=== PATIENT | male | born 1940 | race Caucasian/White ===

== ENCOUNTER 2019-12-30 14:01 | Outpatient (CLI) | payer MEDICARE, MEDICAID, SELFPAY ==
--- NOTE | ~2019-12-30 | XR_ITS ---
EXAMINATION: XR lumbar spine 2-3V DATE: 12/30/2019 14:45 INDICATION: Low back pain. TECHNIQUE: 3 views of lumbar spine were obtained. COMPARISON: Lumbar spine radiographs 06/29/2011 FINDINGS: There is 7 degrees levocurvature of lumbar spine. There is 5 mm retrolisthesis of L1 on L2 and 3 mm retrolisthesis of L2 on L3. Vertebral body heights are normal. There is severely decreased d isc height at L1-L2, L2-L3, and L4-L5 and moderately decreased disc height at L3-L4 and L5-S1. There is multilevel facet joint osteoarthritis, severe in the lower lumbar spine. Surgical clips in the rig ht upper quadrant are likely from cholecystectomy. IMPRESSION: 1. Severe lumbar spondylosis. Reviewed, dictated and finalized at location A.
--- NOTE | ~2019-12-30 | XR_ITS ---
XR hip BI wo pelvis 12/30/2019 14:45 Indication: Bilateral hip pain Procedure: 2 views of each hip Comparison: No prior studies for comparison. Findings: No acute fracture or traumatic malalignment. No significant joint space narrowing. Normal m ineralization. No erosive changes. Sacral foramen are symmetric. There are vascular calcifications. Impression: 1: No significant bone or joint abnormality. Reviewed, dictated and finalized at location A. Impression: 1: No significant bone or joint abnormality.
[2019-12-30 14:19] LABS: Basophils Absolute Auto 0.06 K/mm3 (0.00-0.10); Basophils Percent Auto 0.9 % (0.0-1.0); Eosinophils Absolute Auto 0.36 K/mm3 (0.02-0.50); Eosinophils Percent Auto 5.3 % (1.0-6.0); Hematocrit 45.4 % (37.0-46.0); Hemoglobin 15.6 g/dL (12.4-15.3); Immature Granulocyte Absolute 0.02 K/mm3 (0.00-0.00); Immature Granulocyte Percent A 0.3 % (0.0-0.0); Lymphocytes Absolute Auto 1.76 K/mm3 (1.10-4.50); Lymphocytes Percent Auto 25.7 % (18.0-42.0); Mean Corpuscular HGB Conc 34.4 g/dL (32.0-36.0); Mean Corpuscular Hemoglobin 31.5 pg (27.0-31.0); Mean Corpuscular Volume 91.7 fL (78.0-102.0); Mean Platelet Volume 11.1 fl (8.7-11.0); Monocytes Absolute Auto 0.76 K/mm3 (0.10-0.90); Monocytes Percent Auto 11.1 % (2.0-11.0); Neutrophils Absolute Auto 3.9 K/mm3 (1.7-7.2); Neutrophils Percent Auto 56.7 % (50.0-70.0); Platelet Count Result 260 K/mm3 (150-420); Red Blood Count 4.95 M/mm3 (4.70-6.10); Red Cell Distribution Width 13.9 % (11.6-14.4); White Blood Count 6.9 K/mm3 (4.8-10.8)
--- NOTE | 2019-12-30 15:00 | ECG_ITS ---
Measurements Intervals [place] Rate: 47 P: 75 ID: [id number] QRS: 94 QRSD: 85 T: 69 QT: 424 QTc: 378 Interpretive Statements SINUS BRADYCARDIA RIGHT AXIS DEVIATION LOW QRS VOLTAGE IN LIMB LEADS BASELINE WANDER- V4-V6 ABNORMAL ECG Electronically Signed On 12-30-2019 15:07:59 CDT by Bradley Waters D.O.
[2019-12-30 15:13] LABS: Alanine Aminotransferase 39 U/L (16-63); Albumin Level 3.9 g/dL (3.4-5.0); Alkaline Phosphatase 80 U/L (46-116); Anion Gap 12.5 mmol/L (7-16); Aspartate Amino Transferase 22 U/L (15-37); Bilirubin,Total 0.4 mg/dL (0.00-1.00); Blood Urea Nitrogen 17 mg/dL (7-18); Calcium 9.1 mg/dL (8.5-10.1); Carbon Dioxide 26 mmol/L (21-32); Chloride 105 mmol/L (98-108); Estimated Glomerular Filt Rate > 60; Glucose 106 mg/dL (70-99); Osmolality Calculated 289 mOsm/kg (285-295); Potassium 4.5 mmol/L (3.5-5.1); Sodium 139 mmol/L (136-145); Total Protein 6.9 g/dL (6.4-8.2)
[2019-12-30 15:14] LABS: CRP < 0.2 mg/dL (0.0-0.9)
[2020-01-02 09:09] LABS: Theophylline 4.6 mg/L (10.0-20.0)
== END 2019-12-30 14:02 | disposition home or self-care (01) ==
LOC: CHSLAB 14:08
PROVIDERS: PCP Internal Medicine; Visit Provider Internal Medicine
DX: M25.552 Pain in left hip (principal); M25.551 Pain in right hip; I73.9 Peripheral vascular disease, unspecified
CPT/HCPCS: 36415; 72100; 73521; 80053; 80198; 85025; 86140; 93005

== ENCOUNTER 2020-01-02 12:20 | Outpatient (CLI) | payer MEDICARE, MEDICAID, SELFPAY ==
--- NOTE | ~2020-01-02 | US_ITS ---
US art doppler w press LE BI INDICATION: Claudication. Bilateral hip pain. TECHNIQUE: Segmental pressures and plethysmographic and Doppler waveforms of the brachial and lower e xtremity arteries were obtained. COMPARISON: None. FINDINGS: Right and left brachial artery pressures of 125 mm Hg and 126 mm Hg, respectively, are concordant (no rmal difference <= 30 mmHg). The right ankle-brachial index (CURLY) is 0.88 (normal >= 0.9-1.0). The right great toe-brachial index (TBI) is 0.56 (normal >= 0.60). The left CURLY is 0.95. The left TBI is 0.5. IMPRESSION: 1. Diminished right ankle-brachial index and bilateral toe brachial indices consistent with mild loco pheral arterial disease. Reviewed, dictated and finalized at location A. IMPRESSION: 1. Diminished right ankle-brachial index and bilateral toe brachial indices con sistent with mild peripheral arterial disease.
== END 2020-01-02 12:21 | disposition home or self-care (01) ==
LOC: CHSIMG 12:21
PROVIDERS: PCP Internal Medicine; Visit Provider Internal Medicine
DX: I73.9 Peripheral vascular disease, unspecified (principal); M25.552 Pain in left hip; M25.551 Pain in right hip
CPT/HCPCS: 93923

== ENCOUNTER 2020-04-07 09:40 | Outpatient (CLI) | payer MEDICARE, MEDICAID, SELFPAY ==
--- NOTE | ~2020-04-07 | MR_ITS ---
. EXAMINATION: MR lumbar spine wo con DATE: 04/07/2020 10:32 INDICATION: Lumbar spinal stenosis. Low back pain. TECHNIQUE: Magnetic resonance imaging (MRI) of the lumbar spine was performed without intravenous con trast. Sequences included sagittal T2-weighted FSE, sagittal T2-weighted FS FSE, sagittal T1-weighted FSE, and axial T2-weighted FSE. COMPARISON: Lumbar spine radiographs 12/30/2019 FINDINGS: There is 11 degrees levoscoliosis of lumbar spine. There is 3 mm retrolisthesis of L1 on L2 and L2 on L3. There are Schmorl's nodes at most levels. There is severely decreased disc height at L 1-L2 and L2-L3, moderately decreased disc height at L3-L4, severely decreased disc height at L4-L5, a nd moderately decreased disc height at L5-S1. The distal spinal cord signal intensity is normal. The conus medullaris is at T12-L1. There are cysts in the kidneys measuring up to 1.6 cm on the left. The following disc levels are specifically discussed: L1-L2: The disc is bulging and has an annular fissure. There is moderate right and mild left facet mervin int osteoarthritis. There is moderate bilateral neural foraminal stenosis. There is mild central patrick l stenosis. L2-L3: The disc is bulging and has an annular fissure. There is moderate bilateral facet joint osteoa rthritis. There is moderate bilateral neural foraminal stenosis. There is mild central canal stenosis . L3-L4: The disc is bulging and has an annular fissure. There is mild bilateral facet joint osteoarthr itis. There is moderate right and mild left neural foraminal stenosis. There is mild central canal st enosis. L4-L5: The disc is bulging and has an annular fissure. There is severe bilateral facet joint osteoart hritis. There is moderate bilateral neural foraminal stenosis. There is mild central canal stenosis. L5-S1: The disc is bulging and has an annular fissure. There is moderate right and severe left facet joint osteoarthritis. There is mild bilateral neural foraminal stenosis. There is mild central canal stenosis. IMPRESSION: 1. Severe lumbar spondylosis. Reviewed, dictated and finalized at location A.
== END 2020-04-07 09:41 | disposition home or self-care (01) ==
PROVIDERS: PCP Internal Medicine; Visit Provider Internal Medicine
DX: M48.061 Spinal stenosis, lumbar region without neurogenic claudication (principal)
CPT/HCPCS: 72148

== ENCOUNTER 2021-01-03 14:26 | Outpatient (CLI) | payer MEDICARE, MEDICAID, SELFPAY ==
--- NOTE | ~2021-01-03 | XR_ITS ---
XR chest 2V DATE: 01/03/2021 14:59 INDICATION: COPD. Fatigue for one week. TECHNIQUE: PA and lateral views Heart size is normal. Is aortic arch calcification, mild aortic unfolding. No hilar or mediastinal en largement. COMPARISON: 12/17/2017 chest FINDINGS: There is bilateral hyperinflation. No pulmonary infiltrate or consolidation, pulmonary vas cular congestion or pleural effusion or pneumothorax. Surgical clips, upper abdomen, seen only on the lateral view, likely due to cholecystectomy Diffuse osteopenia. Bilateral rotator cuff atrophy. Osteoarthritic changes at the left glenohumeral joint in particular. Degenerative change of the acromioclavicular joints. IMPRESSION: Bilateral hyperinflation; no active cardiac pulmonary disease Aortic atherosclerosis Reviewed, dictated and finalized at location B.
== END 2021-01-03 14:27 | disposition home or self-care (01) ==
PROVIDERS: PCP Internal Medicine; Visit Provider Internal Medicine
DX: R53.83 Other fatigue (principal); J44.9 Chronic obstructive pulmonary disease, unspecified
CPT/HCPCS: 71046

== ENCOUNTER 2021-03-09 15:56 | Outpatient (CLI) | payer MEDICARE, MEDICAID, SELFPAY ==
--- NOTE | ~2021-03-09 | XR_ITS ---
XR knee LT min 4V DATE: 03/09/2021 16:28 INDICATION: Generalized left knee pain. No injury. TECHNIQUE: AP, PA, lateral and sunrise views COMPARISON: None FINDINGS: There is mild periarticular spurring at the patellofemoral compartment consistent with oste oarthritis. No fracture or dislocation or joint effusion. No periosteal reaction or bone destruction. No radiopaq ue intra-articular loose body or chondrocalcinosis. Joint spaces appear preserved. IMPRESSION: Mild patellofemoral osteoarthritis Reviewed, dictated and finalized at location A.
== END 2021-03-09 15:57 | disposition home or self-care (01) ==
LOC: CHSIMG 15:59
PROVIDERS: PCP Internal Medicine; Visit Provider Internal Medicine
DX: I73.9 Peripheral vascular disease, unspecified (principal); M25.562 Pain in left knee
CPT/HCPCS: 73564

== ENCOUNTER 2021-03-15 10:51 | Outpatient (RCR) | payer MEDICARE, MEDICAID, SELFPAY | END 2021-06-13 23:59 | disposition home or self-care (01) | LOC: CHSPT 10:51 | PROVIDERS: PCP Internal Medicine; Visit Provider Internal Medicine | DX: M79.605 Pain in left leg (principal); M79.604 Pain in right leg; R26.9 Unspecified abnormalities of gait and mobility | CPT/HCPCS: 99199 ==

== ENCOUNTER 2021-04-15 07:54 | Outpatient (CLI) | payer MEDICARE, MEDICAID, SELFPAY ==
--- NOTE | ~2021-04-15 | US_ITS ---
EXAMINATION: US aorta DATE: 04/15/2021 08:40 INDICATION: Aortic aneurysm. TECHNIQUE: Grayscale, color Doppler, and pulsed Doppler images of the aorta and common iliac arteries were obtained. COMPARISON: None. FINDINGS: The aorta is normal in caliber.. The right common iliac artery is obscured by bowel gas. The left com mon iliac artery is obscured by bowel gas. IMPRESSION: 1. No abdominal aortic aneurysm. Reviewed, dictated and finalized at location A.
--- NOTE | ~2021-04-15 | US_ITS ---
EXAMINATION: US arterial ankle brachial ind DATE: 04/15/2021 08:40 INDICATION: Peripheral arterial disease. TECHNIQUE: Segmental pressures and plethysmographic and Doppler waveforms of the brachial and lower e xtremity arteries were obtained. COMPARISON: Ultrasound 01/02/2020 FINDINGS: Right and left brachial artery pressures of 134 mm Hg and 146 mm Hg, respectively, are concordant (no rmal difference <= 30 mmHg). The right ankle-brachial index (CURLY) is 1.03 (normal >= 0.9-1.0). The right great toe-brachial index (TBI) is 0.77 (normal >= 0.65). Arterial Doppler waveforms are monophasic at the ankle. The left CURLY is 0.97. The left TBI is 0.55. Arterial Doppler waveforms are monophasic at the ankle. IMPRESSION: 1. Mildly decreased left CURLY and TBI, consistent with left-sided arterial occlusive disease, stable f rom 01/02/2020. 2. No significant right-sided arterial occlusive disease, improved from 01/02/2020. Reviewed, dictated and finalized at location A. IMPRESSION: 1. Mildly decreased left CURLY and TBI, consistent with left-sided arterial occlu sive disease, stable from 01/02/2020. 2. No significant right-sided arterial occlusive disease, improved from 01/02/20 20.
== END 2021-04-15 07:55 | disposition home or self-care (01) ==
LOC: CHSIMG 07:56
PROVIDERS: PCP Internal Medicine; Visit Provider Internal Medicine
DX: I73.9 Peripheral vascular disease, unspecified (principal); I71.9 Aortic aneurysm of unspecified site, without rupture
CPT/HCPCS: 76775; 93922

== ENCOUNTER 2022-02-19 14:55 | Emergency (ER) | payer BC, SELFPAY ==
--- NOTE | ~2022-02-19 | XR_ITS ---
EXAMINATION: XR chest 1V portable Exam Date/Time: 02/19/2022 15:08 CDT HISTORY: SHORTNESS OF BREATH, COUGH. Comparison: 01/03/2021. RESULT: Lines, tubes, and devices: None. Lungs and pleura: Senescent change, otherwise clear. Cardiomediastinal silhouette: Stable. Other: No acute osseous or upper abdominal finding. IMPRESSION: No acute cardiopulmonary process. Reviewed, dictated and finalized at location K.
[2022-02-19 14:55] VITALS: BP 157/91; PULSE 59; RESP 20; TEMP 36.8; O2SAT 96
--- NOTE | 2022-02-19 15:05 | ECG_ITS ---
Measurements Intervals [place] Rate: 53 P: 92 NV: 160 QRS: 92 QRSD: 82 T: 79 QT: 418 QTc: 393 Interpretive Statements SINUS BRADYCARDIA BORDERLINE RIGHT AXIS DEVIATION [QRS AXIS > 90] COMPARED TO ECG 12/30/2019 14:59:00 NO SIGNIFICANT CHANGES Electronically Signed On 02-20-2022 17:15:07 CDT by Gómez Emanuel M.D.
--- NOTE | 2022-02-19 15:09 | ED.GENADULT ---
HPI - General Adult General Chief complaint: Shortness of Breath/Dyspnea Stated complaint: weakness,depression Time Seen by Provider: 02/19/22 15:04 History of Present Illness HPI narrative: Fernie is a 82M with a PMH of tobacco abuse, COPD, HTN and recently diagnosed prostate cancer that presented to ED via ambulance that was called by his granddaughter. She was concerned about his breathing. For the last day he has had increased SOB, cough and sputum production. Last night he reportedly had a fever and a few episodes of non-bloody vomiting. He denies chest pain, and his lightheadedness and fatigue are no different than normal. He denies any abdominal pain as well as diarrhea. No dysuria/hematuria reported. Related Data Home Medications Medication Instructions Recorded Confirmed atorvastatin 20 mg tablet 20 mg PO DAILY 02/19/22 02/19/22 diclofenac sodium 75 mg 75 mg PO BID 02/19/22 02/19/22 tablet,delayed release famotidine 20 mg tablet 20 mg PO BID 02/19/22 02/19/22 lisinopril 20 mg tablet 20 mg PO DAILY 02/19/22 02/19/22 montelukast 10 mg tablet 10 mg PO DAILY 02/19/22 02/19/22 theophylline 400 mg 400 mg PO BID 02/19/22 02/19/22 tablet,extended release 24 hr verapamil 120 mg tablet,extended 120 mg PO HS 02/19/22 02/19/22 release Allergies Allergy/AdvReac Type Severity Reaction Status Date / Time aspirin Allergy Mild Rash Unverified 10/07/08 13:16 Contrast Media Allergy Mild Confusion Uncoded 05/20/03 12:57 Review of Systems Review of Systems: All systems reviewed & are unremarkable except as noted in HPI and below Exam Const: General: healthy appearing, no acute distress and alert Nutritional Appearance: well nourished Orientation/consciousness: patient oriented x3 Limitations: no limitations HENMT: Head: normal to inspection Ears: external ears normal General nose exam: Normal external nose present Eyes: Conjunctivae: conjunctivae normal Pupils: Equal, round and reactive pupils present Neck: Neck: normal visual inspection Chest: Chest palpation & inspection: normal inspection of the chest Resp: Other: Prolonged expiratory phase, diffuse wheezing, and cough present on exam. Good air movement and was able to speak in complete sentences Cardio: Rate: regular rate Rhythm: regular rhythm GI: Other: normal to inspection Skin: General skin exam: normal color Neuro: General: patient oriented x3 and moves all extremities Cranial nerves: Yes Nystagmus not present Extrem: Other: No deformity Psych: Mental Status: mental status grossly normal Course Course Emergency Course: Ordered CXR, EKG, labs, steroids, azithromycin and albuterol HFA as covid test is pending. EKG showed sinus bradycardia with possible RAD but no ST elevation or depression EXAMINATION:? XR chest 1V portable Exam Date/Time:? 02/19/2022 15:08 CDT HISTORY: SHORTNESS OF BREATH, COUGH. ? Comparison:? 01/03/2021. RESULT: Lines, tubes, and devices:? None. Lungs and pleura:? Senescent change, otherwise clear. Cardiomediastinal silhouette:? Stable. Other:? No acute osseous or upper abdominal finding. IMPRESSION: No acute cardiopulmonary process. UA showed nitrites Vital Signs Vital signs: Vital Signs Temperature 98.2 F 02/19/22 14:55 Pulse Rate 59 L 02/19/22 14:55 Respiratory Rate 20 02/19/22 14:55 Blood Pressure 157/91 H 02/19/22 14:55 Pulse Oximetry 96 02/19/22 14:55 Oxygen Delivery Room Air 02/19/22 14:55 Temperature 98.2 F 02/19/22 14:55 Pulse Rate 58 L 02/19/22 15:50 Respiratory Rate 24 H 02/19/22 15:50 Blood Pressure 130/55 L 02/19/22 15:50 Pulse Oximetry 98 02/19/22 15:50 Oxygen Delivery Room Air 02/19/22 15:50 Medical Decision Making Vital Signs Vital Signs: Vital Signs Temperature 98.2 F 02/19/22 14:55 Pulse Rate 59 L 02/19/22 14:55 Respiratory Rate 02/19/22 14:55 Blood Pressure 157/91 H 02/19/22 14:55 Pulse Oximetry 96 02/19/22 14:5
[2022-02-19] MEDS: predniSONE 20 MG TABLET 40 MG PO (15:29)
[2022-02-19] MEDS: ONDANSETRON HCL ODT 4 MG TABLET PO (15:30)
[2022-02-19] MEDS: AZITHROMYCIN 250 MG TABLET 500 MG PO (15:30)
[2022-02-19] MEDS: ALBUTEROL SULFATE (*SP) INHALER 2 PUFF INHALATION (15:31)
[2022-02-19 15:49] LABS: Basophils Absolute Auto 0.05 K/mm3 (0.00-0.10); Basophils Percent Auto 0.6 % (0.0-1.0); Eosinophils Absolute Auto 0.37 K/mm3 (0.02-0.50); Eosinophils Percent Auto 4.3 % (1.0-6.0); Hematocrit 46.3 % (37.0-46.0); Hemoglobin 15.4 g/dL (12.4-15.3); Immature Granulocyte Absolute 0.02 K/mm3 (0.00-0.00); Immature Granulocyte Percent A 0.2 % (0.0-0.0); Lymphocytes Percent Auto 22.3 % (18.0-42.0); Mean Corpuscular HGB Conc 33.3 g/dL (32.0-36.0); Mean Corpuscular Hemoglobin 30.6 pg (27.0-31.0); Mean Corpuscular Volume 91.9 fL (78.0-102.0); Mean Platelet Volume 10.8 fl (8.7-11.0); Monocytes Percent Auto 9.4 % (2.0-11.0); Neutrophils Absolute Auto 5.4 K/mm3 (1.7-7.2); Neutrophils Percent Auto 63.2 % (50.0-70.0); Platelet Count Result 291 K/mm3 (150-420); Red Blood Count 5.04 M/mm3 (4.70-6.10); Red Cell Distribution Width 14.1 % (11.6-14.4); White Blood Count 8.5 K/mm3 (4.8-10.8)
[2022-02-19 15:50] VITALS: BP 130/55; PULSE 58; RESP 24; O2SAT 98
[2022-02-19 16:09] LABS: SARS-CoV-2 Ag Negative (Negative)
[2022-02-19 16:11] LABS: Alanine Aminotransferase 30 U/L (16-63); Albumin Level 3.6 g/dL (3.4-5.0); Alkaline Phosphatase 91 U/L (46-116); Anion Gap 7 mmol/L (8-16); Aspartate Amino Transferase 17 U/L (15-37); Bilirubin,Total 0.4 mg/dL (0.00-1.00); Blood Urea Nitrogen 17 mg/dL (7-18); Calcium 8.7 mg/dL (8.5-10.1); Carbon Dioxide 26 mmol/L (21-32); Chloride 104 mmol/L (98-108); Estimated CRCL calculation 48 ml/min; Estimated Glomerular Filt Rate > 60; Glucose 91 mg/dL (70-99); NT Pro B Type Natriuretic Pept 154 pg/mL (0-450); Osmolality Calculated 285 mOsm/kg (285-295); Potassium 4.1 mmol/L (3.5-5.1); Sodium 137 mmol/L (136-145); Total Protein 7.4 g/dL (6.4-8.2); Troponin I 4.6 ng/L (0.00-60.4)
[2022-02-19 16:33] LABS: Add Urine Microscopic? YES; Appearance Urine Clear (Clear); Bilirubin Urine Negative (Negative); Blood Urine Negative (Negative); Color Urine Light Yellow (Yellow); Glucose Urine UA Negative (Negative); Ketones Urine Negative (Negative); Leukocyte Esterase Ur 1+ (Negative); Nitrate Urine Positive (Negative); Protein Urine Negative (Negative); Urobilinogen Urine 0.2 mg/dL (0.2-1.0); pH Urine 7.5 (5.0-8.0)
[2022-02-19 16:41] LABS: Bacteria Urine 4+ /hpf; RBC Urine 0-2 /hpf (0-2); Squamous Epithelial Cell Urine None seen /hpf (Few); WBC Clumps Urine Present /hpf; WBC Urine 31-50 /hpf (0-3)
[2022-02-19] MEDS: levoFLOXacin 500 MG TABLET (16:55)
[2022-02-19] MEDS: levoFLOXacin 250 MG TABLET (16:55)
[2022-02-19 16:57] VITALS: BP 134/54; PULSE 64; RESP 20; TEMP 36.9; O2SAT 98
--- NOTE | 2022-02-19 16:59 | PC.NURSE ---
discharge instructions given to pt and family per dr toribio. voiced understanding
== END 2022-02-19 17:05 | disposition home or self-care (01) ==
PROVIDERS: Emergency Provider Family Medicine; PCP Internal Medicine
DX: J44.1 Chronic obstructive pulmonary disease with (acute) exacerbation (principal); N39.0 Urinary tract infection, site not specified; Z20.822 Contact with and (suspected) exposure to COVID-19; I10 Essential (primary) hypertension; C61 Malignant neoplasm of prostate; Z87.891 Personal history of nicotine dependence
CPT/HCPCS: 36415; 71045; 80053; 81001; 83880; 84484; 85025; 87426; 93005; 99284; A9270; C9803; J7512

== ENCOUNTER 2022-02-28 01:29 | Emergency (ER) | payer BC, SELFPAY ==
--- NOTE | ~2022-02-28 | CT_ITS ---
EXAMINATION: CT chest abdomen pelvis wo con DATE: 02/28/2022 02:08 INDICATION: Cough. Right lower quadrant abdominal pain. TECHNIQUE: Computed tomography (CT) of the chest, abdomen, and pelvis was performed without intraveno us contrast. Automated exposure control and iterative reconstruction technique were employed. The dos e-length product was 984.36 mGy-cm. COMPARISON: CT pelvis 08/20/2017, CT abdomen and pelvis 05/02/2010 FINDINGS: CHEST CT: There is moderate emphysema. There is mild atelectasis bilaterally. Calcified right lung nodules and calcified right hilar and mediastinal lymph nodes are consistent with old granulomatous disease. Ther e is mild scarring at the lung apices. There is a 5 mm nodule in left lower lobe, likely benign. Ther e are chronic 5 mm nodules in the lower lobes, likely benign. No pleural effusion. There are nodules in the thyroid measuring up to 14 mm, likely not clinically significant. The heart size is normal. Th ere are coronary artery calcifications. There are calcifications of the aortic valve. No pericardial effusion. There is a small sliding hiatal hernia. There is bilateral gynecomastia. There is severe th oracic spondylosis. ABDOMEN/PELVIS CT: Calcifications in the liver and spleen are consistent with old granulomatous disease. There are good es of cholecystectomy. The pancreas and adrenal glands are normal. There is a parenchymal calcificati on in right kidney. There is mild right hydronephrosis. There is a 6 mm stone in proximal right urete r. There is a 1.9 cm cyst in left kidney. There are 1 mm and 3 mm stones in left kidney. The prostate is moderately enlarged. There is diverticulosis of the colon without evidence of diverticulitis. The appendix is normal. There is calcified atherosclerosis of the aorta and many of the other arteries. There are no pathologically enlarged lymph nodes. There is prominent fat in the inguinal canals that may be hernias. There is no free intraperitoneal fluid. There is severe lumbar spondylosis. IMPRESSION: 1. 6 mm stone in proximal right ureter with mild right hydronephrosis. 2. Moderate emphysema. 3. Small sliding hiatal hernia. Reviewed, dictated and finalized at location A.
[2022-02-28 01:32] VITALS: BP 148/60; PULSE 98; RESP 20; TEMP 37; O2SAT 95
--- NOTE | 2022-02-28 01:39 | ED.GENADULT ---
HPI - General Adult General Chief complaint: Abdominal Pain Stated complaint: Adominal pain History of Present Illness HPI narrative: Fernie is a 82M with a PMH of tobacco abuse, COPD, HTN and recently diagnosed prostate cancer that presented to ED with abdominal pain. He started having worsening sharp right sided abdominal pain and distension. It was accompanied by 4 episodes of non-bloody vomiting. Had a small BM yesterday morning. No CP or lightheadedness. No diarrhea. Related Data Home Medications Medication Instructions Recorded Confirmed atorvastatin 20 mg tablet 20 mg PO DAILY 02/19/22 03/03/22 diclofenac sodium 75 mg 75 mg PO BID 02/19/22 03/03/22 tablet,delayed release famotidine 20 mg tablet 20 mg PO BID 02/19/22 03/03/22 lisinopril 20 mg tablet 20 mg PO DAILY 02/19/22 03/03/22 montelukast 10 mg tablet 10 mg PO DAILY 02/19/22 03/03/22 theophylline 400 mg 400 mg PO BID 02/19/22 03/03/22 tablet,extended release 24 hr verapamil 120 mg tablet,extended 120 mg PO HS 02/19/22 03/03/22 release Allergies Allergy/AdvReac Type Severity Reaction Status Date / Time aspirin Allergy Mild Rash Verified 03/03/22 19:24 Contrast Media Allergy Mild Confusion Uncoded 03/03/22 19:24 Review of Systems Review of Systems: All systems reviewed & are unremarkable except as noted in HPI and below PMFSH Past Medical History Medical History Gastroenteritis Renal calculus Exam Const: General: healthy appearing, no acute distress and alert Nutritional Appearance: well nourished Orientation/consciousness: patient oriented x3 Limitations: no limitations HENMT: Head: normal to inspection Ears: external ears normal General nose exam: Normal external nose present Eyes: Conjunctivae: conjunctivae normal Pupils: Equal, round and reactive pupils present EOM: EOMs intact bilaterally Neck: Neck: normal visual inspection Chest: Chest palpation & inspection: normal inspection of the chest Resp: Effort & Inspection: normal respiratory effort Auscultation: clear to auscultation bilaterally Cardio: Rate: regular rate Rhythm: regular rhythm GI: Other: Very distended abdomen, faint high pitched bowel sounds, TTP on the right side of the abdomen, no guarding or rebound tenderness Skin: General skin exam: normal color Neuro: General: patient oriented x3, moves all extremities and CN's II-XI intact bilaterally Extrem: General: normal to inspection Psych: Mental Status: mental status grossly normal Course Course Emergency Course: Orderd morphine, zofran, labs and CT. Labs showed no leukocytosis, normal INR, slight RYLAND and his urine showed 3+ blood but no nitrites (was positive a week ago) CT showed emphysema and atelectasis. CT abd/pelvis showed right sided hydronephrosis with an obstructing stone 5x5mm as well as a 3mm stone in the bladder. There was diverticulosis without inflammation. He was given fluids and flomax. His pain was relieved with the morphine Vital Signs Vital signs: Vital Signs Temperature 98.6 F 02/28/22 01:32 Pulse Rate 98 02/28/22 01:32 Respiratory Rate 20 02/28/22 01:32 Blood Pressure 148/60 H 02/28/22 01:32 Pulse Oximetry 95 02/28/22 01:32 Oxygen Delivery Room Air 02/28/22 01:32 Temperature 97.9 F 02/28/22 04:55 Pulse Rate 89 02/28/22 04:55 Respiratory Rate 02/28/22 04:55 Blood Pressure 139/89 02/28/22 04:55 Pulse Oximetry 96 02/28/22 04:55 Oxygen Delivery Room Air 02/28/22 04:55 Medical Decision Making Vital Signs Vital Signs: Vital Signs Temperature 98.6 F 02/28/22 01:32 Pulse Rate 98 02/28/22 01:32 Respiratory Rate 20 02/28/22 01:32 Blood Pressure 148/60 H 02/28/22 01:32 Pulse Oximetry 95 02/28/22 01:32 Oxygen Delivery Room Air 02/28/22 01:32 Temperature 97.9 F 02/28/22 04:55 Pulse Rate 89 02/28/22 04:55 Respiratory Rate 19 02/28/22 04:55
[2022-02-28] MEDS: MORPHINE SULFATE (*CRX) 4 MG/ML INJ IV PUSH (01:45)
[2022-02-28] MEDS: ONDANSETRON INJ 4 MG/2 ML VIAL IV PUSH (01:52)
[2022-02-28 01:58] LABS: Basophils Absolute Auto 0.06 K/mm3 (0.00-0.10); Basophils Percent Auto 0.6 % (0.0-1.0); Eosinophils Absolute Auto 0.52 K/mm3 (0.02-0.50); Hematocrit 45.7 % (37.0-46.0); Hemoglobin 15.3 g/dL (12.4-15.3); Immature Granulocyte Absolute 0.07 K/mm3 (0.00-0.00); Immature Granulocyte Percent A 0.7 % (0.0-0.0); Lymphocytes Absolute Auto 1.61 K/mm3 (1.10-4.50); Lymphocytes Percent Auto 15.6 % (18.0-42.0); Mean Corpuscular HGB Conc 33.5 g/dL (32.0-36.0); Mean Corpuscular Volume 92.5 fL (78.0-102.0); Mean Platelet Volume 10.4 fl (8.7-11.0); Monocytes Absolute Auto 0.77 K/mm3 (0.10-0.90); Monocytes Percent Auto 7.4 % (2.0-11.0); Neutrophils Absolute Auto 7.3 K/mm3 (1.7-7.2); Neutrophils Percent Auto 70.7 % (50.0-70.0); Platelet Count Result 281 K/mm3 (150-420); Red Blood Count 4.94 M/mm3 (4.70-6.10); Red Cell Distribution Width 14.5 % (11.6-14.4); White Blood Count 10.4 K/mm3 (4.8-10.8)
[2022-02-28 02:12] LABS: Alanine Aminotransferase 27 U/L (16-63); Albumin Level 3.4 g/dL (3.4-5.0); Alkaline Phosphatase 85 U/L (46-116); Anion Gap 9 mmol/L (8-16); Aspartate Amino Transferase 14 U/L (15-37); Bilirubin,Total 0.3 mg/dL (0.00-1.00); Blood Urea Nitrogen 25 mg/dL (7-18); Calcium 8.7 mg/dL (8.5-10.1); Carbon Dioxide 24 mmol/L (21-32); Chloride 105 mmol/L (98-108); Estimated CRCL calculation 35 ml/min; Estimated Glomerular Filt Rate 47; Glucose 113 mg/dL (70-99); Lipase 159 U/L (73-393); Osmolality Calculated 291 mOsm/kg (285-295); Potassium 4.4 mmol/L (3.5-5.1); Sodium 138 mmol/L (136-145); Total Protein 6.8 g/dL (6.4-8.2)
[2022-02-28 02:17] LABS: CRP < 0.2 mg/dL (0.0-0.9)
--- NOTE | 2022-02-28 02:17 | PC.NURSE ---
Hermelinda Grandchild/FCO [phone]
[2022-02-28 02:21] LABS: Add Urine Microscopic? YES; Appearance Urine Clear (Clear); Bilirubin Urine Negative (Negative); Blood Urine 3+ (Negative); Color Urine Light Yellow (Yellow); Glucose Urine UA Negative (Negative); Ketones Urine Negative (Negative); Leukocyte Esterase Ur 1+ LEU/UL (Negative); Nitrate Urine Negative (Negative); Protein Urine Negative (Negative); Urobilinogen Urine 0.2 mg/dL (0.2-1.0)
[2022-02-28 02:23] LABS: Lactic Acid Reflex 1.2 mmol/L (0.4-2.0)
[2022-02-28] MEDS: SODIUM CHLORIDE 0.9% IV 1,000 ML 100 ML IV CONT (02:23)
[2022-02-28 02:29] LABS: Bacteria Urine 1+ /hpf; RBC Urine 21-50 /hpf (0-2); Squamous Epithelial Cell Urine None seen /hpf (Few)
[2022-02-28 02:43] VITALS: BP 140/88; PULSE 88; RESP 18; O2SAT 95
[2022-02-28] MEDS: TAMSULOSIN HCL 0.4 MG CAPSULE PO (03:41)
--- NOTE | 2022-02-28 04:08 | PC.NURSE ---
verbal order to change IV fluids to wide open
[2022-02-28 04:55] VITALS: BP 139/89; PULSE 89; RESP 19; TEMP 36.6; O2SAT 96
--- NOTE | 2022-02-28 05:00 | PC.NURSE ---
called granddaughter for ride
== END 2022-02-28 05:26 | disposition home or self-care (01) ==
PROVIDERS: Emergency Provider Family Medicine; PCP Internal Medicine
DX: N20.1 Calculus of ureter (principal); J44.9 Chronic obstructive pulmonary disease, unspecified; I10 Essential (primary) hypertension; R82.90 Unspecified abnormal findings in urine
CPT/HCPCS: 36415; 71250; 74176; 80053; 81001; 83605; 83690; 85025; 85610; 86140; 87086; 87088; 96361; 96374; 96375; 99284; A9270; J2270; J2405; J7030

== ENCOUNTER 2022-03-03 18:46 | Emergency (ER) | payer BC, SELFPAY ==
--- NOTE | ~2022-03-03 | CT_ITS ---
EXAMINATION: CT chest abdomen pelvis wo con DATE: 03/03/2022 19:55 INDICATION: Wheezing, vomiting and right-sided abdominal pain TECHNIQUE: Computed tomography (CT) of the chest, abdomen, and pelvis was performed without intraveno us contrast. Automated exposure control and iterative reconstruction technique were employed. The dos e-length product was 1129.01 mGy-cm. COMPARISON: 02/28/2022 FINDINGS: CHEST CT: Moderate emphysema. Mild biapical pleural-parenchymal scarring and mild dependent atelectasis in the left lower lobe. Small calcified pulmonary nodules in the bilateral lower lobes and calcified right h ilar lymph nodes consistent with old granulomatous disease. A few additional small noncalcified nodul es in the bilateral lower lobes are distorted in the current study due to some respiratory motion in the lower lung zones. No pneumonia, pleural effusion or pneumothorax. Heart size is normal. Atheroscl erotic coronary artery calcification. Aortic valve calcific lesion. Thoracic aorta is normal in calib er. No pathologically enlarged thoracic lymphadenopathy. Small sliding-type hiatal hernia. Bilateral gynecomastia. Severe thoracic spondylosis. ABDOMEN/PELVIS CT: Couple small hepatic and splenic calcifications consistent with old granulomatous disease. Cholecyste ctomy clips at the gallbladder fossa. Pancreas and bilateral adrenal glands are normal. Unchanged 5 m m at least partially obstructing stone at the proximal right ureter with mild right hydronephrosis. U nchanged unchanged 1 mm and 3 mm nonobstructing stones in the left kidney. 1.7 cm left renal cyst. Th ere is moderate colonic diverticulosis with a sigmoid predominance. There is no adjacent inflammator y change to suggest diverticulitis. Small bowel and appendix are normal. Bladder is normal. Prostato megaly. No free intraperitoneal gas or fluid. No pathologically enlarged abdominal or pelvic lymphade nopathy. Continued small amount of fat within the bilateral inguinal canals which could be related to inguinal hernias or body habitus. Mild lumbar levocurvature with severe spondylosis. IMPRESSION: 1. Persistent 5 mm at least partially obstructing proximal right ureteral stone with mild hydronephro sis. 2. Moderate emphysema. 3. Small sliding-type hiatal hernia. Reviewed, dictated and finalized at location A. IMPRESSION: 1. Persistent 5 mm at least partially obstructing proximal right ureteral stone with mild hydronephrosis. 2. Moderate emphysema. 3. Small sliding-type hiatal hernia.
[2022-03-03 19:00] VITALS: BP 160/79; PULSE 78; RESP 16; TEMP 36.7; O2SAT 98
[2022-03-03] MEDS: SODIUM CHLORIDE 0.9% IV 1,000 ML 999 ML IV CONT (20:00)
[2022-03-03] MEDS: PANTOPRAZOLE SODIUM IV 40 MG VIAL IV PUSH (20:10)
[2022-03-03 20:14] LABS: Basophils Absolute Auto 0.06 K/mm3 (0.00-0.10); Basophils Percent Auto 0.4 % (0.0-1.0); Eosinophils Absolute Auto 0.15 K/mm3 (0.02-0.50); Eosinophils Percent Auto 1.1 % (1.0-6.0); Hematocrit 45.4 % (37.0-46.0); Hemoglobin 15.4 g/dL (12.4-15.3); Immature Granulocyte Absolute 0.06 K/mm3 (0.00-0.00); Immature Granulocyte Percent A 0.4 % (0.0-0.0); Lymphocytes Absolute Auto 0.99 K/mm3 (1.10-4.50); Mean Corpuscular HGB Conc 33.9 g/dL (32.0-36.0); Mean Corpuscular Hemoglobin 31.4 pg (27.0-31.0); Mean Corpuscular Volume 92.5 fL (78.0-102.0); Mean Platelet Volume 10.9 fl (8.7-11.0); Monocytes Absolute Auto 0.98 K/mm3 (0.10-0.90); Monocytes Percent Auto 6.9 % (2.0-11.0); Neutrophils Percent Auto 84.2 % (50.0-70.0); Platelet Count Result 256 K/mm3 (150-420); Red Blood Count 4.91 M/mm3 (4.70-6.10); Red Cell Distribution Width 14.5 % (11.6-14.4); White Blood Count 14.2 K/mm3 (4.8-10.8)
[2022-03-03] MEDS: ONDANSETRON INJ 4 MG/2 ML VIAL IV PUSH (20:15)
[2022-03-03 20:23] VITALS: BP 135/74; PULSE 72; RESP 16; O2SAT 98
--- NOTE | 2022-03-03 20:24 | PC.NURSE ---
PT WAS UP TO BEDSIDE TO USE URINAL WITH MINIMAL ASSIST. PT RETURNS TO STRETCHER ON OWN ACCORD. NAD NOTED. IVF INFUSING ORDERED WITHOUT DIFFICULTY. GRANDDAUGHTER IS AT BEDSIDE. WILL CONTINUE TO MONITOR. NAD NOTED AT PRESENT. WARM BLANKET PROVIDED.
[2022-03-03 20:28] LABS: Alanine Aminotransferase 25 U/L (16-63); Albumin Level 3.6 g/dL (3.4-5.0); Alkaline Phosphatase 84 U/L (46-116); Anion Gap 10 mmol/L (8-16); Aspartate Amino Transferase 15 U/L (15-37); Bilirubin,Total 0.4 mg/dL (0.00-1.00); Blood Urea Nitrogen 19 mg/dL (7-18); Carbon Dioxide 25 mmol/L (21-32); Chloride 103 mmol/L (98-108); Estimated CRCL calculation 38 ml/min; Estimated Glomerular Filt Rate 53; Glucose 102 mg/dL (70-99); Lipase 98 U/L (73-393); Osmolality Calculated 288 mOsm/kg (285-295); Sodium 138 mmol/L (136-145); Total Protein 7.2 g/dL (6.4-8.2)
[2022-03-03 20:33] LABS: Lactic Acid Reflex 0.8 mmol/L (0.4-2.0)
[2022-03-03 20:34] LABS: Add Urine Microscopic? YES; Appearance Urine Clear (Clear); Bilirubin Urine Negative (Negative); Blood Urine 2+ (Negative); Color Urine Light Yellow (Yellow); Glucose Urine UA Negative (Negative); Ketones Urine Negative (Negative); Leukocyte Esterase Ur 1+ LEU/UL (Negative); Nitrate Urine Negative (Negative); Protein Urine Negative (Negative); Urobilinogen Urine 0.2 mg/dL (0.2-1.0)
[2022-03-03 20:40] LABS: Bacteria Urine Trace /hpf; Squamous Epithelial Cell Urine Rare /hpf (Few)
--- NOTE | 2022-03-03 21:07 | ED.ABDPAIN ---
HPI - Abdominal Pain General Chief Complaint: Abdominal Pain Stated Complaint: R sided abd pain, vomiting, nausea Time Seen by Provider: 03/03/22 18:50 Source: patient and RN notes reviewed Mode of arrival: wheelchair Limitations: no limitations History of Present Illness MD elicited complaint: abdominal pain Pertinent past history: kidney stones Onset (ago): day(s) (1) Pain Consistency: constant Location: R flank Severity: moderate Pain scale (0-10): 5 Quality: cramping, aching and dull Radiation: none Migration to: no migration Exacerbating factors: nothing Relieving factors: nothing Associated symptoms: nausea and vomiting Related Data Home Medications Medication Instructions Recorded Confirmed atorvastatin 20 mg tablet 20 mg PO DAILY 02/19/22 03/03/22 diclofenac sodium 75 mg 75 mg PO BID 02/19/22 03/03/22 tablet,delayed release famotidine 20 mg tablet 20 mg PO BID 02/19/22 03/03/22 lisinopril 20 mg tablet 20 mg PO DAILY 02/19/22 03/03/22 montelukast 10 mg tablet 10 mg PO DAILY 02/19/22 03/03/22 theophylline 400 mg 400 mg PO BID 02/19/22 03/03/22 tablet,extended release 24 hr verapamil 120 mg tablet,extended 120 mg PO HS 02/19/22 03/03/22 release Allergies Allergy/AdvReac Type Severity Reaction Status Date / Time aspirin Allergy Mild Rash Verified 03/03/22 19:24 Contrast Media Allergy Mild Confusion Uncoded 03/03/22 19:24 Review of Systems Review of Systems: All systems reviewed & are unremarkable except as noted in HPI and below Constitutional: Constitutional: Reports no additional constitutional complaints Eyes: Eyes: Reports no additional eye complaints ENT: Reports system reviewed and no additional complaints, except as documented Cardiovascular: Cardiovascular: Reports no additional cardiovascular complaints Respiratory: Respiratory: Reports no additional respiratory complaints Gastrointestinal: Gastrointestinal: Reports no additional gastrointestinal complaints, Reports nausea and Reports vomiting Genitourinary: Comments: right flank pain. Musculoskeletal: Musculoskeletal: Reports no additional musculoskeletal complaints Integumentary/Breasts: Skin/Breast: Reports system reviewed and no additional complaints, except as docu Neurologic: Reports system reviewed and no additional complaints, except as documented Psychiatric: Psychiatric: Reports no additional psychiatric complaints Endocrine: Endocrine: Reports no additional endocrine complaints Hematologic/Lymphatic: Hematologic/Lymphatic: Reports no additional hematologic/lymphatic complaints Allergic/Immunologic: Allergic/Immunologic: Reports no additional allergic/immunologic complaints PMFSH Past Medical History Medical History Gastroenteritis Renal calculus Exam Const: General: no acute distress Nutritional Appearance: well nourished Orientation/consciousness: patient oriented x3 Limitations: no limitations HENMT: Head: normal to inspection Ears: external ears normal, TM's normal bilaterally and EAC's normal General nose exam: Normal external nose present and Normal nares present Face and sinus: normal facial exam and sinuses nontender Mouth: Yes Normal oral and palatal mucosa present and Yes moist mucous membranes Teeth and gingiva: dentition normal Throat: posterior oropharynx normal Eyes: Conjunctivae: conjunctivae normal Pupils: Equal, round and reactive pupils present EOM: EOMs intact bilaterally Neck: Neck: normal visual inspection, no lymphadenopathy and no meningeal signs Chest: Chest palpation & inspection: normal inspection of the chest Resp: Effort & Inspection: normal respiratory effort Auscultation: clear to auscultation bilaterally Cardio: Rate: regular rate Rhythm: regular rhythm GI: GI Palp: Yes Soft to palpation and Yes Tenderness to palpation present (GI) (miimally tender right flank and epigastrium.) Auscultation: normal bowel
--- NOTE | 2022-03-03 21:15 | PC.NURSE ---
PT REPORTS NAUSEA AND PAIN ARE GONE. IVF COMPLETED. PT BACK UP TO BEDSIDE FOR URINAL USE. PT REPORTS HE IS READY TO GO HOME. WILL CONTINUE TO MONITOR.
[2022-03-03 21:25] VITALS: BP 132/72; PULSE 70; RESP 16; O2SAT 98
== END 2022-03-03 21:25 | disposition home or self-care (01) ==
PROVIDERS: Emergency Provider Emergency Medicine; PCP Internal Medicine
DX: N20.0 Calculus of kidney (principal); K52.9 Noninfective gastroenteritis and colitis, unspecified; N39.0 Urinary tract infection, site not specified
CPT/HCPCS: 36415; 71250; 74176; 80053; 81001; 83605; 83690; 85025; 87086; 96361; 96374; 96375; 99284; C9113; J2405; J7030

== ENCOUNTER 2022-08-09 17:55 | Emergency (ER) | payer BC, SELFPAY ==
--- NOTE | ~2022-08-09 | CT_ITS ---
EXAMINATION: CT cervical spine wo con DATE: 08/09/2022 19:15 INDICATION: fall TECHNIQUE: Computed tomography (CT) of the cervical spine was performed without intravenous contrast. Automated exposure control and iterative reconstruction technique were employed. The dose-length pro duct was 457.68 mGy-cm. COMPARISON: None. FINDINGS: Vertebral Body Alignment: Intact. . Craniocervical and atlantoaxial alignment: Moderate degenerative change. Alignment intact. Osseous structures/fracture: No evidence of a lytic or blastic process in the visualized spine. No e vidence of acute fracture. . Cervical soft tissues: The paraspinal soft tissues planes are maintained. Degenerative changes: Multilevel severe degenerative disc disease and moderate facet arthropathy. Mul tilevel bilateral severe neural foraminal narrowing. No severe central canal stenosis. IMPRESSION: No acute fracture or traumatic malalignment in the cervical spine. Reviewed, dictated and finalized at location K. LIFE ENFORCEMENT MAJOR
--- NOTE | ~2022-08-09 | XR_ITS ---
EXAM: XR wrist RT min 3V DATE: 08/09/2022 19:17 HISTORY: right wrist trauma, swelling to thumb side, pain throughout . COMPARISON: 10/27/2015. FINDINGS: Normal mineralization. Comminuted, intra-articular fracture of the distal right radius, mi nimal displacement of the dorsal cortex seen in the pisiform view. No other fracture. No lytic or rut stic lesion. Scattered degenerative change and chondrocalcinosis. No erosion or periosteal change. So ft tissues within normal limits. IMPRESSION: Comminuted, intra-articular, minimally displaced fracture of the distal right radius. Reviewed, dictated and finalized at location K. [employer]ARNESS MAKER IMPRESSION: Comminuted, intra-articular, minimally displaced fracture of the di stal right radius.
--- NOTE | ~2022-08-09 | CT_ITS ---
EXAMINATION: CT brain wo con DATE: 08/09/2022 19:14 INDICATION: head injury . TECHNIQUE: Computed tomography (CT) of the head was performed without intravenous contrast. The mA wa s adjusted according to patient size. Iterative reconstruction technique was employed. The dose-lengt h product was 605.33 mGy-cm. COMPARISON: None. FINDINGS: No acute intracranial hemorrhage or extra-axial fluid collection. No hydrocephalus, mass, or herniation. No acute ischemic infarct. Unremarkable dural venous sinus attenuation. No acute osseous abnormality. Minimal bilateral mastoid air cell fluid, with the suggestion of mild. Bilateral frontal and ethmoid air cell mucosal thickening, the remaining Adjacent cortical erosion along the posterior margin of th e temporal/petrous bones aerated spaces are clear. Moderate atrophy and chronic white matter change. Atherosclerotic intracranial calcification. Bilater al lens replacements. IMPRESSION: No acute intracranial process. Mild bilateral mastoid air cell fluid, with suggestion of adjacent mil d osseous erosion as can be seen with mastoiditis. Reviewed, dictated and finalized at location K. [employer] OFFICER IMPRESSION: No acute intracranial process. Mild bilateral mastoid air cell fluid, with sugg estion of adjacent mild osseous erosion as can be seen with mastoiditis.
[2022-08-09 17:55] VITALS: BP 164/81; PULSE 94; RESP 20; TEMP 36.8; O2SAT 96
--- NOTE | 2022-08-09 18:04 | ED.UPPEXIN ---
HPI - Extremity Injury (Upper) General Chief Complaint: Extremity Injury, Upper Stated Complaint: Fall arm pain Time Seen by Provider: 08/09/22 18:02 Source: patient and family Mode of arrival: ambulatory Limitations: no limitations History of Present Illness HPI narrative: 82-year-old male smoker with a history of hypertension, COPD, prostate cancer, stage kidney stones, dyslipidemia presents to the ED after his legs got caught up with something and he fell backwards 5 hrs ago. -- No loss of consciousness but the patient was dizzy for a while. -- Occipital scalp hematoma -- right wrist pain and deformity with decreased range of motion MD complaint: injury to: right Onset (ago): hour(s) ( 5 hours ago) Other Extremity Injury: Right: wrist Other injuries: none Handedness: left Place: home Severity: moderate Relieving factors: immobilization Exacerbating factors: movement of extremity Context: fall Associated symptoms: denies other symptoms Treatments prior to arrival: cold therapy Related Data Home Medications Medication Instructions Recorded Confirmed atorvastatin 20 mg tablet 20 mg PO DAILY 02/19/22 08/09/22 diclofenac sodium 75 mg 75 mg PO BID 02/19/22 08/09/22 tablet,delayed release famotidine 20 mg tablet 20 mg PO BID 02/19/22 08/09/22 lisinopril 20 mg tablet 20 mg PO DAILY 02/19/22 08/09/22 montelukast 10 mg tablet 10 mg PO DAILY 02/19/22 08/09/22 theophylline 400 mg 400 mg PO BID 02/19/22 08/09/22 tablet,extended release 24 hr verapamil 120 mg tablet,extended 120 mg PO HS 02/19/22 08/09/22 release Allergies Allergy/AdvReac Type Severity Reaction Status Date / Time aspirin Allergy Mild Rash Verified 08/09/22 18:00 Contrast Media Allergy Mild Confusion Uncoded 03/03/22 19:24 Review of Systems Review of Systems: All systems reviewed & are unremarkable except as noted in HPI and below Constitutional: Constitutional: Reports as per HPI and Reports no additional constitutional complaints Comments: the patient appears breathless which he says is chronic. Eyes: Eyes: Reports as per HPI and Reports no additional eye complaints ENT: Reports system reviewed and no additional complaints, except as documented and Reports as per HPI Cardiovascular: Cardiovascular: Reports as per HPI and Reports no additional cardiovascular complaints Respiratory: Respiratory: Reports as per HPI, Reports no additional respiratory complaints, Reports cough and Reports dyspnea Gastrointestinal: Gastrointestinal: Reports as per HPI and Reports no additional gastrointestinal complaints Genitourinary: Genitourinary: Reports no additional male genitourinary complaints and Reports as per HPI Musculoskeletal: Musculoskeletal: Reports no additional musculoskeletal complaints and Reports as per HPI Comments: Right wrist pain and deformity Integumentary/Breasts: Skin/Breast: Reports system reviewed and no additional complaints, except as docu and Reports as per HPI Neurologic: Reports system reviewed and no additional complaints, except as documented and Reports as per HPI Comments: occipital hematoma Psychiatric: Psychiatric: Reports no additional psychiatric complaints and Reports as per HPI Endocrine: Endocrine: Reports no additional endocrine complaints and Reports as per HPI Hematologic/Lymphatic: Hematologic/Lymphatic: Reports no additional hematologic/lymphatic complaints and Reports as per HPI Allergic/Immunologic: Allergic/Immunologic: Reports no additional allergic/immunologic complaints and Reports as per HPI [facility] Past Medical History Medical History Gastroenteritis Renal calculus Exam Const: General: ill appearing Orientation/consciousness: patient oriented x3 Limitations: no limitations HENMT: Head: normal to inspection ( occipital scalp hematoma measuring 3 cm into 4 cm) Ears: external ears normal Face/Nose/Sinus: Normal external nose presen
[2022-08-09] MEDS: ONDANSETRON HCL ODT 4 MG TABLET PO (18:19)
[2022-08-09] MEDS: MORPHINE SULFATE (*CRX) 4 MG/ML INJ IM (18:22)
--- NOTE | 2022-08-09 18:45 | PC.NURSE ---
PT GOING TO RADIOLOGY AT THIS TIME FOR SCANS.
[2022-08-09 19:39] VITALS: BP 140/90; PULSE 83; RESP 20; O2SAT 95
[2022-08-09 19:49] VITALS: BP 140/90; PULSE 73; RESP 18; TEMP 36.6; O2SAT 95
== END 2022-08-09 20:03 | disposition home or self-care (01) ==
PROVIDERS: Emergency Provider Internal Medicine Critical Care Medicine; PCP Internal Medicine
DX: S52.571A Other intraarticular fracture of lower end of right radius, initial encounter for closed fracture (principal); I10 Essential (primary) hypertension; J44.9 Chronic obstructive pulmonary disease, unspecified; E78.5 Hyperlipidemia, unspecified; Z85.46 Personal history of malignant neoplasm of prostate; W19.XXXA Unspecified fall, initial encounter
CPT/HCPCS: 29125; 70450; 72125; 73110; 96372; 99284; A4565; A9270; J2270

== ENCOUNTER 2023-04-10 12:21 | Outpatient (CLI) | payer BC, SELFPAY ==
--- NOTE | ~2023-04-10 | XR_ITS ---
Clinical Indication: Cough PA and lateral views of the chest: Comparison: 02/19/2022 Findings: The lungs are clear, without evidence of focal consolidation or pleural effusion. Cardiome diastinal silhouette is within normal limits. Bones and soft tissues are unremarkable. Impression: Normal chest. Reviewed, dictated and finalized at location . Impression: Normal chest.
[2023-04-10 12:45] LABS: Basophils Absolute Auto 0.05 K/mm3 (0.00-0.10); Basophils Percent Auto 0.7 % (0.0-1.0); Eosinophils Absolute Auto 0.12 K/mm3 (0.02-0.50); Eosinophils Percent Auto 1.6 % (1.0-6.0); Hematocrit 47.5 % (37.0-46.0); Hemoglobin 15.9 g/dL (12.4-15.3); Immature Granulocyte Absolute 0.03 K/mm3 (0.00-0.00); Immature Granulocyte Percent A 0.4 % (0.0-0.0); Lymphocytes Absolute Auto 1.75 K/mm3 (1.10-4.50); Lymphocytes Percent Auto 23.5 % (18.0-42.0); Mean Corpuscular HGB Conc 33.5 g/dL (32.0-36.0); Mean Corpuscular Hemoglobin 30.4 pg (27.0-31.0); Mean Corpuscular Volume 90.8 fL (78.0-102.0); Mean Platelet Volume 10.3 fl (8.7-11.0); Monocytes Absolute Auto 0.51 K/mm3 (0.10-0.90); Monocytes Percent Auto 6.9 % (2.0-11.0); Neutrophils Percent Auto 66.9 % (50.0-70.0); Platelet Count Result 362 K/mm3 (150-420); Red Blood Count 5.23 M/mm3 (4.70-6.10); Red Cell Distribution Width 13.4 % (11.6-14.4); White Blood Count 7.4 K/mm3 (4.8-10.8)
[2023-04-10 13:12] LABS: Alanine Aminotransferase 31 U/L (16-63); Albumin Level 3.3 g/dL (3.4-5.0); Alkaline Phosphatase 96 U/L (46-116); Anion Gap 8 mmol/L (8-16); Aspartate Amino Transferase 14 U/L (15-37); Bilirubin,Total 0.3 mg/dL (0.00-1.00); Blood Urea Nitrogen 16 mg/dL (7-18); CRP 1.3 mg/dL (0.0-0.9); Calcium 9.1 mg/dL (8.5-10.1); Carbon Dioxide 29 mmol/L (21-32); Chloride 104 mmol/L (98-108); Estimated Glomerular Filt Rate > 60; Free T3 2.55 pg/mL (2.18-3.98); Free T4 Free Thyroxine 1.11 ng/dL (0.76-1.46); Glucose 117 mg/dL (70-99); Osmolality Calculated 294 mOsm/kg (285-295); Potassium 4.8 mmol/L (3.5-5.1); Sodium 141 mmol/L (136-145); Thyroid Stimulating Hormone 0.65 uIU/mL (0.36-3.74); Total Protein 6.8 g/dL (6.4-8.2)
[2023-04-10 13:23] LABS: RSV RNA, RT-PCR Negative (Negative); SARS-CoV-2 RNA PCR Negative (Negative)
[2023-04-12 20:32] LABS: Theophylline < 2.5 mg/L (10.0-20.0)
== END 2023-04-10 12:22 | disposition home or self-care (01) ==
PROVIDERS: PCP Internal Medicine; Visit Provider Internal Medicine
DX: J06.9 Acute upper respiratory infection, unspecified (principal); J44.9 Chronic obstructive pulmonary disease, unspecified; R63.4 Abnormal weight loss
CPT/HCPCS: 36415; 71046; 80053; 80198; 84439; 84443; 84481; 85025; 86140; 87634; 87635

== ENCOUNTER 2024-03-18 04:00 | Observation (INO) | payer BC, SELFPAY ==
[2024-03-18] VITALS (24 sets, daily range): BP systolic 55–121; BP diastolic 34–81; PULSE 58–109; RESP 16–29; TEMP 35.8–36.9; O2SAT 86–97; BMI 27.1
--- NOTE | ~2024-03-18 | CT_ITS ---
CT head without contrast Indication: Status post fall COMPARISON: 08/09/2022 Technique: Serial scans were obtained through the brain without the administration of contrast. Dose reduction technique was used on this scan by utilizing automated exposure control and iterative recon struction technique. The dose-length product (DLP) was 681.00 mGy-cm. Findings: There is no evidence of intracranial hemorrhage, mass lesion, or acute infarct. The ventri cles and subarachnoid spaces are dilated, consistent with mild atrophy. Low attenuation regions are seen within the periventricular white matter bilaterally, likely representing changes from chronic mi crovascular ischemic disease. There is no evidence of edema, mass effect or midline shift. The visu alized paranasal sinuses and mastoid air cells are clear. Impression: No intracranial hemorrhage, mass, or acute infarct. Atrophy and chronic white matter changes, as above. Reviewed, dictated and finalized at [facility]. Impression: No intracranial hemorrhage, mass, or acute infarct. Atrophy and chronic white matter changes, as above.
--- NOTE | ~2024-03-18 | XR_ITS ---
Left Hand Technique: PA, oblique, and lateral views were obtained. Clinical History: Status post fall Findings: No acute fracture or dislocation is seen. Osseous alignment is anatomic. There is moderate degenerative change of the interphalangeal joint of the thumb. There are mild degenerative changes th roughout the remaining interphalangeal joints in the fingers.. Soft tissues are unremarkable. Impression: No acute fracture or dislocation. Degenerative changes, as above. Reviewed, dictated and finalized at location M. Impression: No acute fracture or dislocation. Degenerative changes, as above.
--- NOTE | ~2024-03-18 | CT_ITS ---
Noncontrast CT scan of the cervical spine Technique: Multiple contiguous axial [address] images of the cervical spine were obtained and rec onstructed in 2D sagittal and coronal planes on the acquisition scanner. Dose reduction technique was used on this scan by utilizing automated exposure control, adjustment of the mA and/or kV according to patient size. The dose-length product (DLP) was 522.80 mGy-cm. Clinical History: Pain COMPARISON: 08/09/2022 Findings: No fractures or dislocations. There is straightening of the normal cervical lordosis. Ther e is severe degenerative disc disease throughout cervical spine, especially from C4 through C7. There is mild facet arthropathy throughout the cervical spine. There is probable bilateral neural foramina l narrowing at C2-C3. There is bilateral neural foramina at C3-C4, disc bulge and probable mild to mo derate canal stenosis. There is bilateral neural foraminal narrowing at C4-C5, with moderate canal st enosis. There is bilateral neural foraminal narrowing at C5-C6, with mild to moderate canal stenosis. There is bilateral neural foraminal narrowing at C6-C7, with moderate canal stenosis. No prevertebra l soft tissue swelling. There is a 1 cm partially imaged probable spiculated nodule the right upper lobe. There is mild to mo derate emphysema. Impression: No fracture or subluxation of the cervical spine. Advanced degenerative spondylosis, as detailed above. Probable 1 cm partially imaged spiculated right upper lobe pulmonary nodule. Chest CT recommended to further evaluate. Reviewed, dictated and finalized at [facility]. Impression: No fracture or subluxation of the cervical spine. Advanced degenerative spondylosis, as detailed above. Probable 1 cm partially imaged spiculated right upper lobe pulmonary nodule. Ch est CT recommended to further evaluate.
--- NOTE | ~2024-03-18 | CT_ITS ---
CT Scan of the Chest without Contrast: Clinical Indication: Status post fall Technique: Contiguous sections were acquired throughout the chest without intravenous contrast. Dose reduction technique was used on this scan by utilizing automated exposure control and iterative recon struction technique. The dose-length product (DLP) was 483.53 mGy-cm. COMPARISON: 03/14/2022 Findings: There is no evidence of any significant mediastinal, hilar or axillary lymphadenopathy. Coronary chun ry calcifications are present. There is no evidence of pleural or pericardial effusion. There is moderate emphysema. There is a 14 mm spiculated right upper lobe pulmonary nodule (axial kelvin ge 38). There is a 4 mm right lower lobe pulmonary nodule (axial image 72). Several right basilar tommy cified granulomas are present. There is a 4 mm left basilar pulmonary nodule (axial image 82). Images through the upper abdomen reveal small amount of perisplenic/perihepatic ascites.. Impression: 14 mm spiculated right upper lobe pulmonary nodule, suspicious for bronchogenic carcinoma. Consider P ET/CT and/or tissue sampling. Moderate emphysema. Additional subcentimeter bibasilar pulmonary nodules, as above. No acute posttraumatic abnormality seen in the chest. Small amount of upper abdominal ascites, nonspecific. Reviewed, dictated and finalized at location M. Impression: 14 mm spiculated right upper lobe pulmonary nodule, suspicious for bronchogenic carcinoma. Consider PET/CT and/or tissue sampling. Moderate emphysema. Additional subcentimeter bibasilar pulmonary nodules, as above. No acute posttraumatic abnormality seen in the chest. Small amount of upper abdominal ascites, nonspecific.
--- NOTE | ~2024-03-18 | CT_ITS ---
Non-contrast CT scan of the Pelvis Clinical indication: Status post fall Technique: 2.5 mm axial scans were obtained through the pelvis without intravenous or oral contrast. Dose reduction technique was used on this scan by utilizing automated exposure control and iterative reconstruction technique. The dose-length product (DLP) was 546.24 mGy-cm. Findings: Questionable mild wall thickening of several small bowel loops. No ascites. There is extens benita atherosclerotic calcification of the distal abdominal aorta and iliac vessels. Small urinary blad denny stones are present. Prostate gland enlarged. No acute fracture or dislocation seen. Bilateral hip joint spaces are preserved. No soft tissue hemat dana evident. Impression: No acute fracture or dislocation. Questionable mild wall thickening of several small bowel loops. Correlate for nonspecific enteritis. Urinary bladder stones. Enlarged prostate gland. Reviewed, dictated and finalized at [facility]. Impression: No acute fracture or dislocation. Questionable mild wall thickening of several small bowel loops. Correlate for n onspecific enteritis. Urinary bladder stones. Enlarged prostate gland.
--- NOTE | ~2024-03-18 | XR_ITS ---
Left elbow Technique: AP, oblique, and lateral views were obtained. Clinical History: Pain Findings: No acute fracture or dislocation is seen. Osseous alignment is anatomic. Joint spaces are p reserved. There is no displacement of the fat pads, and soft tissues are unremarkable. Impression: Unremarkable radiographs. Reviewed, dictated and finalized at location . Impression: Unremarkable radiographs.
--- NOTE | ~2024-03-18 | CT_ITS ---
Noncontrast CT scan of the lumbar spine CLINICAL HISTORY: Pain, status post fall TECHNIQUE: Axial noncontrast imaging of the lumbar spine was performed. Sagittal and coronal reformat lorna images were constructed. Dose reduction technique was used on this scan by utilizing automated ex posure control and iterative reconstruction technique. The dose-length product (DLP) was 1407.65 mGy- cm. FINDINGS: No fracture and 5. There are minimal grade 1 retrolisthesis of L1 over L2, and of L2 over L 3. There is severe degenerative disc narrowing at all lumbar levels. At L1-L2, there is disc bulge, with mild facet arthropathy. No marco central canal stenosis. There is moderate to advanced bilateral neural foraminal narrowing. At L2-L3, there is mild disc bulge and mild facet arthropathy. Probable minimal central canal stenosi s. There is moderate to advanced bilateral neural foraminal narrowing. L3-L4, there is disc bulge and mild facet arthropathy. There is probable moderate central canal steno sis. There is advanced right neural foraminal narrowing, and moderate to advanced left neural foramin al narrowing. At L4-L5, there is disc bulge and facet arthropathy. No definite canal stenosis. There is severe bila teral neural foraminal narrowing. At L5-S1, there is minimal disc bulge. No definite canal stenosis. There is severe bilateral neural f oraminal narrowing. Paravertebral soft tissues are unremarkable. Small urinary bladder stones are present. Prostate gland probably enlarged. Impression: No fracture. Minimal grade 1 retrolisthesis of L1 over L2, and of L2 over L3. Severe degenerative spondylosis of the lumbar spine, as detailed above. Reviewed, dictated and finalized at [facility]. Impression: No fracture. Minimal grade 1 retrolisthesis of L1 over L2, and of L2 over L3. Severe degenerative spondylosis of the lumbar spine, as detailed above.
--- NOTE | 2024-03-18 04:21 | ED.FALL ---
HPI - Fall General Chief Complaint: Trauma <Yaniv Christian MD - Last Filed: 03/18/24 06:23> Stated Complaint: fall <Yaniv Christian MD - Last Filed: 03/18/24 06:23> Time Seen by Provider: 03/18/24 04:12 <Yaniv Christian MD - Last Filed: 03/18/24 06:23> Source: patient and EMS <Yaniv Christian MD - Last Filed: 03/18/24 06:23> Limitations: no limitations <Yaniv Christian MD - Last Filed: 03/18/24 06:23> History of Present Illness HPI Narrative: 84 YEARS OLD WHITE MALE CAME FROM HOME BY AMBULANCE AFTER A FALL. PATIENT GOT UP TO GO TO THE BATHROOM, GOT DIZZY AND FELL DOWN 5 STEPS, NOT SURE IF HE BLACKED OUT OR NOT, COMPLAINING OF HEAD PAIN, LEFT SHOULDER PAIN, LEFT THUMB PAIN, LEFT HIP PAIN. HE DENIES NECK PAIN,CHEST PAIN, ABDOMINAL PAIN OR BACK PAIN. PRIOR TO ARRIVAL. HE DENIES ANTI-PLATELET OR ANTICOAGULANT MEDICATIONS. HE REPORTS HAVING A TETANUS SHOT WITHIN THE LAST 2 YEARS <Yaniv Christian MD - Last Filed: 03/18/24 06:23> Related Data Home Medications: Home Medications Medication Instructions Recorded Confirmed atorvastatin 20 mg tablet 20 mg PO DAILY 02/19/22 03/18/24 lisinopril 20 mg tablet 20 mg PO DAILY 02/19/22 03/18/24 montelukast 10 mg tablet 10 mg PO DAILY 02/19/22 03/18/24 verapamil 120 mg tablet,extended 120 mg PO HS 02/19/22 03/18/24 release <Yaniv Christian MD - Last Filed: 03/18/24 06:23> Allergies/Adverse Reactions: Allergies Allergy/AdvReac Type Severity Reaction Status Date / Time aspirin Allergy Mild Rash Verified 03/18/24 04:20 Contrast Media Allergy Mild Confusion Uncoded 03/18/24 04:20 <Yaniv Christian MD - Last Filed: 03/18/24 06:23> Review of Systems Review of Systems: All systems reviewed & are unremarkable except as noted in HPI and below <Yaniv Christian MD - Last Filed: 03/18/24 06:23> PMFSH Past Medical History Medical History: Medical History Gastroenteritis Renal calculus <Yaniv Christian MD - Last Filed: 03/18/24 06:23> Exam Narrative: GENERAL APPEARANCE: WELL-DEVELOPED, WELL-NOURISHED SKIN: NORMAL COLOR, MULTIPLE TINY SKIN AVULSION LEFT UPPER EXTREMITY, LEFT THUMB SUBCUTANEOUS LACERATION HEAD: NORMOCEPHALIC, SCALP LACERATION AT THE TOP HEAD EYES: CLEAR CONJUNCTIVA ENT: OROPHARYNX NORMAL, EARS NORMAL, NOSE NORMAL NECK: C-COLLAR IN PLACE CHEST AND RESPIRATORY: AIRWAY PATENT, NO RESPIRATORY DISTRESS, NO ACCESSORY MUSCLE USE HEART: REGULAR RATE/RHYTHM ABDOMEN: SOFT, NONTENDER, NO ORGANOMEGALY, QUIET BOWEL SOUNDS VASCULAR: NORMAL PERIPHERAL PULSES, NORMAL CAPILLARY REFILL. MUSCULOSKELETAL: SLIGHT LIMITED RANGE OF MOTION OF LEFT SHOULDER, MODERATE LIMITED RANGE OF MOTION OF LEFT HIP, NO BRUISES OR DEFORMITY NEUROLOGIC: ALERT AND ORIENTED ?3, AUTOMOBILE LEASING SUPERVISOR IS NORMAL TESTED, NO GROSS MOTOR DEFICIT <Yaniv Christian MD - Last Filed: 03/18/24 06:23> Course Vital Signs Vital signs: Vital Signs Blood Pressure 113/77 03/18/24 04:04 Pulse Oximetry 89 L 03/18/24 04:04 Temperature 36.0 C L 03/18/24 04:06 Pulse Rate 97 03/18/24 06:01 Respiratory Rate 24 H 03/18/24 05:51 Blood Pressure 114/78 03/18/24 06:01 Pulse Oximetry 89 L 03/18/24 07:00 Oxygen Delivery Nasal Cannula 03/18/24 07:00 Oxygen Flow Rate 2 03/18/24 07:00 <Yaniv Christian MD - Last Filed: 03/18/24 06:23> Vital Signs Blood Pressure 113/77 03/18/24 04:04 Pulse Oximetry 89 L 03/18/24 04:04 Temperature 36.0 C L 03/18/24 04:06 Pulse Rate 97 03/18/24 06:01 Respiratory Rate 24 H 03/18/24 05:51 Blood Pressure 114/78 03/18/24 06:01 Pulse Oximetry 89 L 03/18/24 07:00 O
--- NOTE | 2024-03-18 05:52 | PC.NURSE ---
Called pt's granddaughter, Celeste, with update. She is contacting someone to come pick the pt up.
--- NOTE | 2024-03-18 06:09 | ECG_ITS ---
Test Date: 2024-03-18 06:34:54 Measurements Intervals [place] Rate: 94 P: 85 AR: 148 QRS: 108 QRSD: 83 T: 54 QT: 360 QTc: 452 Interpretive Statements SINUS RHYTHM RIGHT AXIS DEVIATION BORDERLINE ST-T WAVE ABNORMALITY- ANTEROLAT/INF LEADS BASELINE ARTIFACT- I, II, III, AVR, AVF, V1, V3-V6 BORDERLINE ECG No previous ECG available for comparison Electronically Signed On 03-18-2024 06:35:56 CDT by Bradley Waters D.O.
--- NOTE | 2024-03-18 06:10 | PC.NURSE ---
Used gait belt and walker to take pt to restroom. Pt complained of weakness and nausea. Pt a little unsteady on his feet. ERP notified.
[2024-03-18] MEDS: SODIUM CHLORIDE 0.9% IV 1,000 ML 100 ML IV CONT ×3 (06:24→21:44)
[2024-03-18] MEDS: MECLIZINE HCL 25 MG TABLET PO (06:24)
[2024-03-18] MEDS: ONDANSETRON INJ 4 MG/2 ML VIAL IV PUSH (06:24)
--- NOTE | 2024-03-18 06:25 | PC.NURSE ---
Pt unable to provide urine sample at this time.
--- NOTE | 2024-03-18 06:32 | PC.NURSE ---
Thumb injury bleed through dressing. Notified ERP. Will replace telfa and apply Coban.
[2024-03-18 06:36] LABS: Hemoglobin 18.6 g/dL (12.4-15.3); Mean Corpuscular HGB Conc 33.2 g/dL (32-36); Mean Corpuscular Hemoglobin 30.1 pg (27.0-31.0); Mean Corpuscular Volume 90.8 fL (78.0-102.0); Mean Platelet Volume 10.6 fl (8.7-11.0); Platelet Count Result 409 K/mm3 (150-420); Red Blood Count 6.17 M/mm3 (4.70-6.10)
--- NOTE | 2024-03-18 06:47 | PC.NURSE ---
Pt contacts: Celeste, grand daughter ; Summer, room mate
[2024-03-18 06:57] LABS: Alanine Aminotransferase 20 U/L (16-63); Alkaline Phosphatase 101 U/L (46-116); Anion Gap 11 mmol/L (4-12); Aspartate Amino Transferase 27 U/L (15-37); Bilirubin,Total 0.6 mg/dL (0.00-1.00); Blood Urea Nitrogen 18 mg/dL (7-18); Calcium 8.7 mg/dL (8.5-10.1); Carbon Dioxide 21 mmol/L (21-32); Chloride 103 mmol/L (98-108); Estimated CRCL calculation 28 ml/min; Estimated Glomerular Filt Rate 40; Glucose 132 mg/dL (70-99); Osmolality Calculated 283 mOsm/kg (285-295); Potassium 4.8 mmol/L (3.5-5.1); Sodium 135 mmol/L (136-145); Total Protein 6.8 g/dL (6.4-8.2); Troponin I 7.6 ng/L (0.00-60.4)
[2024-03-18 06:58] LABS: White Blood Count 23.5 K/mm3 (4.8-10.8)
[2024-03-18 07:12] LABS: Band Neutrophils Percent 7 % (0-6); Lymphocytes Absolute Manual 3.05 K/mm3 (1.1-4.5); Lymphocytes Percent Manual 13 % (18-44); Monocytes Absolute Manual 1.17 K/mm3 (0.1-0.90); Monocytes Percent Manual 5 % (3-9); Neutrophils Absolute Manual 19.27 K/mm3 (1.3-6.7); Neutrophils Percent Manual 75 % (46-73); Platelet Estimate Slightly Increased (Adequate); Total Cells Counted 100
[2024-03-18 07:15] LABS: INR 1.1; Partial Thromboplastin Time 26.1 Sec (23.9-30.70); Prothrombin Time 12.4 Seconds (9.50-12.1)
[2024-03-18 07:34] LABS: Add Urine Microscopic? YES; Appearance Urine Clear (Clear); Bilirubin Urine Negative (Negative); Blood Urine Trace-intact (Negative); Color Urine Yellow (Yellow); Glucose Urine UA Negative (Negative); Ketones Urine Negative (Negative); Leukocyte Esterase Ur Negative LEU/UL (Negative); Nitrate Urine Negative (Negative); Protein Urine 1+ (Negative); Specific Grav Ur 1.025 (1.010-1.020)
[2024-03-18 07:40] LABS: Bacteria Urine Trace /hpf; Mucus Urine Rare /lpf; RBC Urine 0-2 /hpf (0-2); WBC Urine None seen /hpf (0-3)
--- NOTE | 2024-03-18 07:42 | PC.NURSE ---
0730: Report was taken from RN Shonda, AMANDA Guillory. Pt was found to be sleeping on left side on stretcher, aroused to verbal stimuli. Pt found to have hypotension upon my assessment. Pt reports nausea and abd was non tender upon palpation. pt has multiple abrasions noted to left side of body, flank, luq, knee, lower leg. There is a dressed wound to left thumb and left upper arm. pt reports he slipped on wet steps while ambulating outside to urinate this morning. pt states he is supposed to use a walker, however does not I am not getting old. pt is a&ox4 at this time, denies any numbness, tingling, headache, neck pain, and no confusion is noted. Pt reports he is unable to urinate, straight cath is completed without difficulty, however blood is noted on catheter when withdrawn, pt tolerated well. 2nd iv site is established, and ERP is notifed of hypotension, pt placed on cardiac cath technologist, iv bolus administered as ordered without difficulty. Pt is to be admitted to room 206, [facility] CALENDER MACHINE OPERATOR HELPER has accepted pt for admission. pt is aware and agreeable to plan of care. IV fluids and medications are infusing as ordered without difficulty upon admission. BP has improved with IVF.
[2024-03-18 07:43] LABS: Amphetamine Screen Urine Negative (Negative); Barbiturate Screen Urine Negative (Negative); Benzodiazepines Screen Urine Negative (Negative); Cannabinoid Screen Urine Negative (Negative); Cocaine Screen Urine Negative (Negative); Methadone Screen Urine Negative (Negative); Opiate Screen Urine Positive (Negative); Phencyclidine Screen Urine Negative (Negative)
[2024-03-18 07:48] LABS: Lactic Acid Reflex 2.1 mmol/L (0.4-2.0)
[2024-03-18] MEDS: PIPERACILLN/TAZ 3.375GM/NS50ML 3.375 GM/50 ML BAG IVPB (07:57)
--- NOTE | 2024-03-18 09:24 | PC.NURSE ---
Patient admitted to room 306, is alert and oriented, uses call light, denies pain.
[2024-03-18] MEDS: ATORVASTATIN 10 MG TABLET 20 MG PO (09:45)
[2024-03-18] MEDS: PANTOPRAZOLE 40 MG TABLET PO ×2 (09:45→16:58)
[2024-03-18] MEDS: lisinopriL 20 MG TABLET PO (09:45)
[2024-03-18] MEDS: MONTELUKAST SODIUM 10 MG TABLET PO (09:45)
[2024-03-18] MEDS: ENOXAPARIN 30 MG/0.3 ML SYRINGE SUB-Q (09:46)
[2024-03-18] MEDS: AZITHROMYCIN 500 MG/NS 250 ML 500 MG/250 ML BAG 250 MG IVPB (10:05)
[2024-03-18 10:50] LABS: Reflex Lactic Acid Yes or No Add Lactic
[2024-03-18 12:37] LABS: Lactic Acid 1.5 mmol/L (0.4-2.0)
--- NOTE | 2024-03-18 15:43 | PM.IMHP ---
H&P: HPI History of Present Illness Date/Time: 03/18/24 15:43 Chief Complaint: Fall with lacertaion Narrative: This is a 84 year old male who states that he was at home and he needed to use the bathroom and someone was in the bathroom and he needed to go outside to use the bathroom in the bushes. Patient states that he got outside and it got dizzy and that is the last thing he remembers. Patient states that he lives with a whole bunch of people at home . When he came to he was on the ground. Patient states that he has high blood pressure and no diabetes he hurts from his head to his toes. patient states that he smokes daily but does not use anything else. At this time he is on 3l NC of oxygen in which he will need to be weaned off of. We are awaiting PT/OT evaluation . Patient will continued to be monitored and we will follow the recommendation of PT. Review of Systems Review of Systems: laceration, fall, Pain All systems reviewed & are unremarkable except as noted in HPI and below PMFSH Past Medical History Medical History (Updated 03/18/24 @ 15:56 by Ryan Agarwal NP) Gastroenteritis Pneumonia Renal calculus Social History Social History Smoking status: Current every day smoker Alcohol intake: never Substance use: never Do You Feel Safe in your Home?: Yes Lack of Transportation: No Lack of Food: Never True Current Housing: I Have Housing Concerned About Future Housing: No Difficulty Paying Gas/Electric Bills: No Difficulty Paying for Meds: No Currently Unemployed: No Education: High School Diploma/GED Difficulty w/ Childcare or Family Care: No Spiritual care concerns: No Meds Home Medications and Allergies Home Medications Medication Instructions Recorded Confirmed Type albuterol sulfate 5 mg/mL(0.5 %) 2.5 mg (0.5 mL) inhalation Q6H PRN 02/19/22 03/18/24 Rx solution for nebulization bronchospasm #20 mL albuterol sulfate 90 mcg/actuation 1 inh inhalation QID PRN shortness 02/19/22 03/18/24 Rx aerosol inhaler (Ventolin HFA) of breath or wheezing #8.5 grams atorvastatin 20 mg tablet 20 mg PO DAILY 02/19/22 03/18/24 History lisinopril 20 mg tablet 20 mg PO DAILY 02/19/22 03/18/24 History montelukast 10 mg tablet 10 mg PO DAILY 02/19/22 03/18/24 History verapamil 120 mg tablet,extended 120 mg PO HS 02/19/22 03/18/24 History release hydrocodone 5 mg-acetaminophen 325 1 tablet PO Q8H PRN pain #10 tabs 02/28/22 03/18/24 Rx mg tablet omeprazole magnesium 20 mg 20 mg PO BID #20 tabs 03/03/22 03/18/24 Rx tablet,delayed release (Prilosec OTC) Allergies Allergy/AdvReac Type Severity Reaction Status Date / Time aspirin Allergy Mild Rash Verified 03/18/24 04:20 Contrast Media Allergy Mild Confusion Uncoded 03/18/24 04:20 Vital Signs Vital Signs - 24 hr 03/18/24 04:06 03/18/24 04:04 03/18/24 04:16 Temperature 96.8 F L Pulse Rate 109 H 108 H Respiratory Rate 22 H 27 H Blood Pressure 113/77 113/77 98/76 L Pulse Oximetry 90 89 L Oxygen Delivery Room Air Oxygen Flow Rate 03/18/24 05:38 03/18/24 05:39 03/18/24 05:42 Temperature Pulse Rate 99 100 97 Respiratory Rate 29 H Blood Pressure 80/62 L 84/68 L 88/67 L Pulse Oximetry 88 L 88 L Oxygen Delivery Oxygen Flow Rate 03/18/24 05:45 03/18/24 05:46 03/18/24 07:00 Temperature Pulse Rate 98 94 Respiratory Rate 20 22 H Blood Pressure 98/74 L Pulse Oximetry 89 L 90 89 L Oxygen Delivery Nasal Cannula Oxygen Flow Rate 2 03/18/24 05:51 03/18/24 05:57 03/18/24 05:58 Temperature Pulse Rate 92 93 96 Respiratory Rate 24 H Blood Pressure 92/66 L 93/81 L 121/70 Pulse Oximetry 86 L 91 91 Oxygen Delivery Oxygen Flow Rate 03/18/24 06:01 03/18/24 06:51 03/18/24 07:00 Temperature Pulse Rate 97 95 Respiratory Rate Blood Pressure 114/78 Pulse Oximetry 91 90 Oxygen Delivery O
[2024-03-18] MEDS: VERAPAMIL HCL ER 120 MG TABLET PO (20:07)
[2024-03-19] VITALS: BP 109/59; PULSE 62; RESP 20; TEMP 36.6; O2SAT 93
[2024-03-19 05:15] LABS: Basophils Absolute Auto 0.04 K/mm3 (0.00-0.10); Basophils Percent Auto 0.4 % (0.0-1.0); Eosinophils Absolute Auto 0.09 K/mm3 (0.02-0.50); Eosinophils Percent Auto 0.9 % (1.0-6.0); Hemoglobin 12.6 g/dL (12.4-15.3); Immature Granulocyte Absolute 0.04 K/mm3 (0.00-0.00); Immature Granulocyte Percent A 0.4 % (0.0-0.0); Lymphocytes Absolute Auto 1.97 K/mm3 (1.10-4.50); Lymphocytes Percent Auto 20.4 % (18.0-42.0); Mean Corpuscular HGB Conc 33.2 g/dL (32-36); Mean Corpuscular Hemoglobin 30.1 pg (27.0-31.0); Mean Corpuscular Volume 90.7 fL (78.0-102.0); Mean Platelet Volume 10.6 fl (8.7-11.0); Monocytes Absolute Auto 1.07 K/mm3 (0.10-0.90); Monocytes Percent Auto 11.1 % (2.0-11.0); Neutrophils Absolute Auto 6.43 K/mm3 (1.70-7.20); Neutrophils Percent Auto 66.8 % (50.0-70.0); Platelet Count Result 278 K/mm3 (150-420); Red Blood Count 4.19 M/mm3 (4.70-6.10); Red Cell Distribution Width 14.9 % (11.6-14.4); White Blood Count 9.6 K/mm3 (4.8-10.8)
[2024-03-19 05:22] LABS: Anion Gap 9 mmol/L (4-12); Blood Urea Nitrogen 18 mg/dL (7-18); Calcium 7.9 mg/dL (8.5-10.1); Carbon Dioxide 24 mmol/L (21-32); Chloride 107 mmol/L (98-108); Estimated CRCL calculation 37 ml/min; Estimated Glomerular Filt Rate 57; Glucose 92 mg/dL (70-99); Osmolality Calculated 291 mOsm/kg (285-295); Potassium 4.5 mmol/L (3.5-5.1); Sodium 140 mmol/L (136-145)
[2024-03-19 05:30] VITALS: O2SAT 95
[2024-03-19 08:00] VITALS: BP 131/53; PULSE 65; RESP 20; TEMP 36.6; O2SAT 93
[2024-03-19] MEDS: SODIUM CHLORIDE 0.9% IV 1,000 ML 100 ML IV CONT (08:09)
[2024-03-19] MEDS: MECLIZINE HCL 6.25 MG TABLET PO ×3 (09:11→17:49)
[2024-03-19] MEDS: traMADol HCL (*CRX) 50 MG TABLET PO ×2 (09:53→20:37)
[2024-03-19] MEDS: lisinopriL 20 MG TABLET PO (09:53)
[2024-03-19] MEDS: ATORVASTATIN 10 MG TABLET 20 MG PO (09:53)
[2024-03-19] MEDS: PANTOPRAZOLE 40 MG TABLET PO ×2 (09:53→17:49)
[2024-03-19] MEDS: MONTELUKAST SODIUM 10 MG TABLET PO (09:53)
[2024-03-19] MEDS: AZITHROMYCIN 500 MG/NS 250 ML 500 MG/250 ML BAG 250 MG IVPB (10:13)
[2024-03-19 16:00] VITALS: BP 137/53; PULSE 67; RESP 20; TEMP 36.3; O2SAT 94
[2024-03-19] MEDS: VERAPAMIL HCL ER 120 MG TABLET PO (20:37)
[2024-03-19 23:42] VITALS: BP 104/46; PULSE 63; RESP 20; TEMP 36.3; O2SAT 93
[2024-03-20 05:40] LABS: Estimated CRCL calculation 44 ml/min; Estimated Glomerular Filt Rate > 60
--- NOTE | 2024-03-20 07:19 | PM.DS ---
DS: Admitting Diagnosis Discharge Date 03/20/2024 Admitting Diagnosis Fall, laceration , Dizziness DS: Discharge Diagnosis Discharge Diagnosis (1) Fall: Qualifiers: Encounter type: initial encounter Qualified Code(s): W19.XXXA - Unspecified fall, initial encounter Code(s): W19.XXXA - Unspecified fall, initial encounter Status: Acute (2) Laceration of scalp: Qualifiers: Encounter type: initial encounter Qualified Code(s): S01.01XA - Laceration without foreign body of scalp, initial encounter Code(s): S01.01XA - Laceration without foreign body of scalp, initial encounter Status: Acute (3) Dizziness: Code(s): R42 - Dizziness and giddiness Status: Acute DS: Summary Hospital Course Reason for hospitalization: Fall , Dizziness, laceration Hospital Course: This is a 84 year old male that was admitted due to dizziness and laceration from a fall. Patient was treated with IV fluids, antibiotics and medication for Dizziness. Patient was seen by physical therapy and has been cleared for discharge. Patient nayely in the hand and dry and intact and patient to have them removed in the 7 days by his primary care provider. While here patient had a 14 mm spiculated right upper lobe pulmonary nodule, suspicious for bronchogenic carcinoma. Consider PET/CT and/or tissue sampling.nodule noted in his lungs that is suspicious for cancer and he is in need for a PET scan . Patient has been made aware and informed me that he will follow up with his Primary care provider. I did discuss smoking cessation in which he has informed me he would not be quitting smoking. Patient will discharge home. Time Spent with Patient Time attestation: Total time spent providing and/or coordinating discharge services: Exam Narrative: GENERAL APPEARANCE: WELL-DEVELOPED, WELL-NOURISHED SKIN: NORMAL COLOR, MULTIPLE TINY SKIN AVULSION LEFT UPPER EXTREMITY, LEFT THUMB SUBCUTANEOUS LACERATION HEAD: NORMOCEPHALIC, SCALP LACERATION AT THE TOP HEAD EYES: CLEAR CONJUNCTIVA ENT: OROPHARYNX NORMAL, EARS NORMAL, NOSE NORMAL NECK: C-COLLAR IN PLACE CHEST AND RESPIRATORY: AIRWAY PATENT, NO RESPIRATORY DISTRESS, NO ACCESSORY MUSCLE USE HEART: REGULAR RATE/RHYTHM ABDOMEN: SOFT, NONTENDER, NO ORGANOMEGALY, QUIET BOWEL SOUNDS VASCULAR: NORMAL PERIPHERAL PULSES, NORMAL CAPILLARY REFILL. MUSCULOSKELETAL: SLIGHT LIMITED RANGE OF MOTION OF LEFT SHOULDER, MODERATE LIMITED RANGE OF MOTION OF LEFT HIP, NO BRUISES OR DEFORMITY NEUROLOGIC: ALERT AND ORIENTED ?3, PEDIATRIC REGISTERED NURSE IS NORMAL TESTED, NO GROSS MOTOR DEFICIT DS: Data Data Completed and Pending Labs on day of discharge: Labs from last 24 hours 03/20/24 05:09 Creatinine 1.02 Estim Creat Clear Calc 44 Estimated GFR > 60 Preliminary micro results at discharge 03/18/24 07:25 Blood Culture - Preliminary Blood Discharge Plan Discharge Attending physician on discharge: Chriss Peraza Consulting providers: Ryan Agarwal; Rahul Blandon; Bradley Waters Discharging Clinician: Ryan Agarwal Anticipated Discharge Date/Time: 03/20/24 08:02 Patient Disposition: Home, Self-Care Activity: may shower and as tolerated Diet: heart healthy Wound Care Instructions: follow printed instructions Discharge Instructions: Have sutures removed in 7 days 14 mm spiculated right upper lobe pulmonary nodule, suspicious for bronchogenic carcinoma. Consider PET/CT and/or tissue sampling. Follow up with your PCP regarding have a PET scan set up. Patient Instructions: Antibiotic Form, Azithromycin (By mouth), How to Stop Smoking (DC), COPD (Chronic Obstru
[2024-03-20 08:00] VITALS: BP 128/54; PULSE 52; RESP 20; TEMP 36.2; O2SAT 96
[2024-03-20] MEDS: MECLIZINE HCL 6.25 MG TABLET PO (09:18)
[2024-03-20] MEDS: PANTOPRAZOLE 40 MG TABLET PO (09:18)
[2024-03-20] MEDS: MONTELUKAST SODIUM 10 MG TABLET PO (09:18)
[2024-03-20] MEDS: ATORVASTATIN 10 MG TABLET 20 MG PO (09:18)
[2024-03-20] MEDS: lisinopriL 20 MG TABLET PO (09:18)
--- NOTE | 2024-03-20 10:30 | PC.NURSE ---
Discharge packet reviewed with patient. Instructions given for superintendent police to call with any questions regarding discharge instructions/medications. Pt transported via wheelchair and assisted into [facility].
--- NOTE | 2024-03-24 09:57 | PC.NURSE ---
Discharge call back complete, still dizzy, had a fall since home, to see PMD today for follow up, said dressing change was done yesterday but lots of pain in thumb, no questions regarding dc instructions
--- NOTE | 2024-04-06 13:10 | WPDPN ---
Progress Note: A&P Assessment and Plan (1) Fall: Qualifiers: Encounter type: initial encounter Qualified Code(s): W19.XXXA - Unspecified fall, initial encounter Code(s): W19.XXXA - Unspecified fall, initial encounter Status: Acute Assessment and Plan: walker PT/OT evaluate and treat monitor for dizziness (2) Laceration of scalp: Qualifiers: Encounter type: initial encounter Qualified Code(s): S01.01XA - Laceration without foreign body of scalp, initial encounter Code(s): S01.01XA - Laceration without foreign body of scalp, initial encounter Status: Acute Assessment and Plan: Patient nayely intact (3) Dizziness: Code(s): R42 - Dizziness and giddiness Status: Acute Assessment and Plan: will monitor for s/s Subjective Date/time seen: 03/19/2024/ Interval history: Patietn in the bed showing improvement but still having some dizziness. We will start some meclizine to see how it helps patient. Patient nayely are dry and intact he has remained afebrile, he is eating and drinking without difficulties. Discussion had with patient regaurding smoking he has informed me he will not be quitting. Exam Narrative: GENERAL APPEARANCE: WELL-DEVELOPED, WELL-NOURISHED SKIN: NORMAL COLOR, MULTIPLE TINY SKIN AVULSION LEFT UPPER EXTREMITY, LEFT THUMB SUBCUTANEOUS LACERATION HEAD: NORMOCEPHALIC, SCALP LACERATION AT THE TOP HEAD EYES: CLEAR CONJUNCTIVA ENT: OROPHARYNX NORMAL, EARS NORMAL, NOSE NORMAL NECK: C-COLLAR IN PLACE CHEST AND RESPIRATORY: AIRWAY PATENT, NO RESPIRATORY DISTRESS, NO ACCESSORY MUSCLE USE HEART: REGULAR RATE/RHYTHM ABDOMEN: SOFT, NONTENDER, NO ORGANOMEGALY, QUIET BOWEL SOUNDS VASCULAR: NORMAL PERIPHERAL PULSES, NORMAL CAPILLARY REFILL. MUSCULOSKELETAL: SLIGHT LIMITED RANGE OF MOTION OF LEFT SHOULDER, MODERATE LIMITED RANGE OF MOTION OF LEFT HIP, NO BRUISES OR DEFORMITY NEUROLOGIC: ALERT AND ORIENTED ?3, LITHOGRAPHED PLATE INSPECTOR IS NORMAL TESTED, NO GROSS MOTOR DEFICIT Objective Data Meds/Results Radiology Results: ITS Impressions Cervical Spine CT 03/18/24 05:58 Impression: No fracture or subluxation of the cervical spine. Advanced degenerative spondylosis, as detailed above. Probable 1 cm partially imaged spiculated right upper lobe pulmonary nodule. Chest CT recommended to further evaluate. Lumbar Spine CT 03/18/24 06:00 Impression: No fracture. Minimal grade 1 retrolisthesis of L1 over L2, and of L2 over L3. Severe degenerative spondylosis of the lumbar spine, as detailed above. Head CT 03/18/24 06:03 Impression: No intracranial hemorrhage, mass, or acute infarct. Atrophy and chronic white matter changes, as above. Chest CT 03/18/24 06:04 Impression: 14 mm spiculated right upper lobe pulmonary nodule, suspicious for bronchogenic carcinoma. Consider PET/CT and/or tissue sampling. Moderate emphysema. Additional subcentimeter bibasilar pulmonary nodules, as above. No acute posttraumatic abnormality seen in the chest. Small amount of upper abdominal ascites, nonspecific. Pelvis CT 03/18/24 06:09 Impression: No acute fracture or dislocation. Questionable mild wall thickening of several small bowel loops. Correlate for nonspecific enteritis. Urinary bladder stones. Enlarged prostate gland. Elbow X-Ray 03/18/24 06:11 Impression: Unremarkable radiographs. Hand X-Ray 03/18/24 06:11 Impression: No acute fracture or dislocation. Degenerative changes, as above.
== END 2024-03-20 10:30 | disposition home or self-care (01) ==
LOC: CHSED 07:48 → CHS2ND 07:51
PROVIDERS: Emergency Medicine; Nurse Practitioner Family; Admitting Provider Internal Medicine; Emergency Provider Emergency Medicine; PCP Internal Medicine; Visit Provider Internal Medicine
DX: S01.01XA Laceration without foreign body of scalp, initial encounter (principal); S61.012A Laceration without foreign body of left thumb without damage to nail, initial encounter; S41.112A Laceration without foreign body of left upper arm, initial encounter; S40.022A Contusion of left upper arm, initial encounter; S70.02XA Contusion of left hip, initial encounter; J18.9 Pneumonia, unspecified organism; R42 Dizziness and giddiness; W10.9XXA Fall (on) (from) unspecified stairs and steps, initial encounter; Z79.51 Long term (current) use of inhaled steroids; Z79.891 Long term (current) use of opiate analgesic; F17.200 Nicotine dependence, unspecified, uncomplicated
CPT/HCPCS: 12001; 36415; 70450; 71250; 72125; 72131; 72192; 73080; 73130; 80048; 80053; 80307; 81001; 82565; 83605; 84484; 85025; 85610; 85730; 86140; 87040; 93005; 96361; 96365; 96366; 96367; 96372; 96375; 97161; 97165; 97530; 97535; 99285; A9270; G0378; J0456; J0696; J1650; J2405; J2543; J7030

== ENCOUNTER 2024-06-08 18:25 | Emergency (ER) | payer BC, SELFPAY ==
--- NOTE | ~2024-06-08 | XR_ITS ---
EXAM: XR knee LT 3V DATE: 06/08/2024 19:03 HISTORY: Lt. hip pain radiates into Lt. knee x1 day, NKI . COMPARISON: 03/09/2021. FINDINGS: Decreased mineralization. No fracture or dislocation. No lytic or blastic lesion. Mild lef t knee osteoarthritis. Minimal joint effusion. No erosion or periosteal change. Scattered vascular ca lcifications. IMPRESSION: No acute osseous finding in the left knee. Reviewed, dictated and finalized at location K. [employer]
--- NOTE | ~2024-06-08 | XR_ITS ---
EXAM: XR hip LT 2V w AP pelvis DATE: 06/08/2024 19:03 HISTORY: Lt. hip pain radiates into Lt. knee x1 day, NKI . COMPARISON: 12/30/2019. FINDINGS: Decreased mineralization. No fracture or dislocation. No lytic or blastic lesion. Lumbar d egenerative disc disease. Mild bilateral hip osteoarthritis. Scattered pelvic enthesopathy. No erosio n or periosteal change. Scattered vascular calcifications. IMPRESSION: No acute osseous finding in the pelvis or left hip. Reviewed, dictated and finalized at location K. OR MANAGING NEWSPAPER
[2024-06-08 18:27] VITALS: BP 140/73; PULSE 69; RESP 18; TEMP 36.5; O2SAT 96
--- NOTE | 2024-06-08 18:33 | ED_ITS ---
HPI - Extremity Injury (Lower) General Chief Complaint: Extremity Injury, Lower Stated Complaint: leg pain Time Seen by Provider: 06/08/24 18:33 Source: patient and EMS Mode of arrival: EMS History of Present Illness HPI Narrative: 84 years old white male came from home by ambulance complaining of pain at the left side of his head radiating to the left side of the left knee. Started couple days ago, unable to put weight on the left foot because of that pain. patient is telling me that he had a fall in February causing pain at that area which got worse over the last 48 hours. Patient denies any new trauma. Patient had CT pelvis at that time we negative finding . 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 Related Data Home Medications ?Medication ?Instructions ?Recorded ?Confirmed ?Last Taken ?Type atorvastatin 20 mg tablet 20 mg PO DAILY 02/19/22 06/08/24 Unknown History lisinopril 20 mg tablet 20 mg PO DAILY 02/19/22 06/08/24 Unknown History montelukast 10 mg tablet 10 mg PO DAILY 02/19/22 06/08/24 Unknown History verapamil 120 mg tablet,extended 120 mg PO HS 02/19/22 06/08/24 Unknown History release Allergies Allergy/AdvReac Type Severity Reaction Status Date / Time aspirin Allergy Mild Rash Verified 06/08/24 18:30 Contrast Media Allergy Mild Confusion Uncoded 06/08/24 18:30 Review of Systems Review of Systems: All systems reviewed & are unremarkable except as noted in HPI and below PMFSH Past Medical History Medical History Pneumonia Gastroenteritis Renal calculus Social History Social History Smoking status: Current every day smoker Alcohol intake: never Substance use: never Do You Feel Safe in your Home?: Yes Lack of Transportation: No Lack of Food: Never True Current Housing: I Have Housing Concerned About Future Housing: No Difficulty Paying Gas/Electric Bills: No Difficulty Paying for Meds: No Currently Unemployed: No Education: High School Diploma/GED Difficulty w/ Childcare or Family Care: No Spiritual care concerns: No Exam Narrative: General appearance: Well-developed, well-nourished Skin: Normal color Head: Normocephalic, nontraumatic Chest and respiratory: Airway patent, no respiratory distress, no accessory muscle use Heart: Regular rate/rhythm Abdomen: Soft, nontender, no organomegaly, quiet bowel sounds Vascular: Normal peripheral pulses, normal capillary refill. Musculoskeletal: Diffuse tenderness lateral side of left hip, left thigh and left knee, small lipoma and left thigh laterally, nontender, soft, no erythema, no rash, no discharge no bruises. Slight limited range of motion of left hip and left knee. Neurologic: Alert and oriented ?3, CAP MACHINE OPERATOR is normal as tested, no gross motor deficit Course Vital Signs Vital signs: Vital Signs Temperature 36.5 C 06/08/24 18:27 Pulse Rate 69 06/08/24 18:27 Respiratory Rate 18 06/08/24 18:27 Blood Pressure 140/73 06/08/24 18:27 Pulse Oximetry 96 06/08/24 18:27 Oxygen Delivery Room Air 06/08/24 18:27 Temperature 36.5 C 06/08/24 18:27 Pulse Rate 69 06/08/24 18:27 Respiratory Rate 18 06/08/24 18:27 Blood Pressure 140/73 06/08/24 18:27 Pulse Oximetry 96 06/08/24 18:27 Oxygen Delivery Room Air 06/08/24 18:27 MDM - Extremity Injury (Lower) MDM Narrative Medical decision making narrative: Musculoskeletal pain, tibiofemoral band syndrome Patient is allergic NSAID which can cause generalized redness all over his body Differential Diagnosis Differential diagnosis: Likely other ( arthritis, musculoskeletal pain, tibiofemoral band syndrome) Medical Records Attestation: I reviewed the patient's medical records. Lab Data Attestation: I reviewed the patient's lab results. Imaging Data Radiologist's impression: Impressions Knee X-Ray 06/08/24 19:10 IMPRESSION: No acute osseous finding in the left knee. Critical Care Time Critical Care Time Critical Care Time: No Discharge Plan Discharge Clinical Impression: Hip pain, left Patient Disposition: Home, Self-Care Condition: Stable Instructions: Hip Pain (ED), Leg Pain (ED) Additional Instructions: Return if symptoms are worsening , call your family physician for appointment, take Tylenol as as needed for aches and pain, continue home medications. Walker, rest, physical therapy, cortisone injection, ice Patient Language: Icelandic Prescriptions: No Action verapamil 120 mg tablet extended release 120 mg PO HS atorvastatin 20 mg tablet 20 mg PO DAILY lisinopril 20 mg tablet 20 mg PO DAILY montelukast 10 mg tablet 10 mg PO DAILY albuterol sulfate [Ventolin HFA] 90 mcg/actuation HFA aerosol inhaler 1 inh inhalation QID PRN (Reason: shortness of breath or wheezing) Qty: 8.5 0RF albuterol sulfate 5 mg/mL solution for nebulization 2.5 mg inhalation Q6H PRN (Reason: bronchospasm) Qty: 20 12RF omeprazole magnesium [Prilosec OTC] 20 mg tablet,delayed release (DR/EC) 20 mg PO BID Qty: 20 0RF Follow-up/Referrals: UNKNOWN,DOCTOR [Non-Staff] -
--- NOTE | 2024-06-08 18:53 | PC.NURSE ---
ASSUMED CARE. REPORT RECEIVED FROM TRAVIS PATEL
--- NOTE | 2024-06-08 19:14 | PC.NURSE ---
SPOKE WITH [facility]. NOTIFIED HER THAT PATIENT IS TO FOLLOW UP WITH PCP WITHIN THE WEEK.
--- NOTE | 2024-06-08 19:39 | PC.NURSE ---
GRAND DAUGHTER CALLED. WANTS HOSPITAL TO PAY TO GET PATIENT HOME.
--- NOTE | 2024-06-08 19:52 | PC.NURSE ---
GRAND DAUGHTER STATES THAT THE HOSPITAL SHOULD PAY TO HAVE PATIENT TAKEN HOME. GRAND DAUGHTER THEN HUNG UP BEFORE ANY OTHER SUGGESTIONS COULD BE MADE.
--- NOTE | 2024-06-08 19:54 | PC.NURSE ---
PATIENT IS DRESSED AND RESTING ON STRETCHER. UPDATED PATIENT ON CURRENT STATUS FOR DISCHARGE.
--- NOTE | 2024-06-08 20:36 | PC.NURSE ---
PATIENT IS RESTING ON STRETCHER. WARM BLANKETS GIVEN. URINAL AT THE BEDSIDE. CALL LIGHT IN REACH
--- OUTSIDE RECORDS SUMMARY | 2024-06-13 19:01 | XMS_ITS | Encounter Summary ---
Author Organization [facility] Address [address] [place] [address]. [place], [place] [id number] [place] [id number] Care Team Providers Care Radio Board Operator Announcer Name Role Phone Mike Mckenzie MD Primary Care Provider [phone] Encounter Details Date Type Department Care Team (Latest Contact Info) Description 04/07/2024 Travel Social History Tobacco Use Types Packs/Day Years Used Date Smoking Tobacco: Every Day Cigarettes Smokeless Tobacco: Never Alcohol Use Standard Drinks/Week Comments Never 0 (1 standard drink = 0.6 oz pur e alcohol) Sex and Gender Information Value Date Recorded Sex Assigned at Not on file Legal Sex Male 8:40 PM CDT Gender Identity Not on file Sexual Orientation Not on file documented as of this encounter Plan of Treatment Not on file documented as of this encounter Visit Diagnoses Not on filedocumented in this encounter Care Teams Radio Board Operator Announcer Relationship Specialty Start Date End Date Mike Mckenzie MD [address] [place] [id number] PCP - General INTERNAL MEDICINE 08/11/22 documented as of this encounter
--- OUTSIDE RECORDS SUMMARY | 2024-06-13 19:01 | XMS_ITS | Encounter Summary ---
Author Organization [facility] Address [address] [place] [address]. [place], [place] [id number] [place] [id number] Care Team Providers Care Metallurgist Helper Name Role Phone Mike Duong MD Primary Care Provider [phone] Reason for Referral * Imaging (Routine) - Closed Specialty Diagnoses / Procedures Referred By Michelle loja Referred To Contact RADIOLOGY Diagnoses Cerebrovascular disease Procedures CTA HEAD+NECK Mike Duong MD [address] [place] [address] Phone: tel: fax: Referral ID Status Reason Start Date Expiration Date Visits Re quested Visits Authorized [id number] Closed 03/25/2024 03/26/2025 1 1 Reason for Visit * Imaging (Routine) - Closed Specialty Diagnoses / Procedures Referred By Michelle loja Referred To Contact RADIOLOGY Diagnoses Cerebrovascular disease Procedures CTA HEAD+NECK Mike Duong MD [address] [place] [address] Phone: tel: fax: Referral ID Status Reason Start Date Expiration Date Visits Re quested Visits Authorized [id number] Closed 03/25/2024 03/26/2025 1 1 Encounter Details Date Type Department Care Team (Late st Contact Info) Description 04/07/2024 2:30 PM CDT - 04/07/2024 11:59 PM CDT Hospital Encounter [place] [address] [place] [address] Mike Duong MD [address] [place] [address] Discharge Disposition: Home or Self Care (Routine Discharge) Social History Tobacco Use Types Packs/Day Years [...] on file documented as of this encounter Medications at Time of Discharge Albuterol Sulfate, sensor, (PROAIR DIGIHALER) 108 (90 Base) MCG/ACT AEROSOL POWDER, BREATH ACTIVATED Inhale 1 Inhaler into the lungs as needed. atorvastatin (LIPITOR) 20 MG tablet Take 1 tablet (20 mg total) by mouth daily. diclofenac EC (VOLTAREN) 75 MG tablet Take 1 tablet (75 mg total) by mouth 2 (two) times daily. famotidine (PEPCID) 20 MG tablet Take 1 tablet (20 mg total) by mouth 2 (two) times daily. HYDROcodone-aceta minophen (NORCO) 10-325 MG tablet 09/07/2022 lisinopril (PRINIVIL) 20 MG tablet Take 1 tablet (20 mg total) by mouth daily. montelukast (SINGULAIR) 10 MG tablet Take 1 tablet (10 mg total) by mouth nightly at bedtime. omeprazole (PRILOSEC) 20 MG capsule Take 1 capsule (20 mg total) by mouth daily. tamsulosin (FLOMAX) 0.4 MG Cap Take 1 capsule (0.4 mg total) by mouth daily. theophylline ER (UNIPHYL) 400 MG 24 hr tablet Take 1 tablet (400 mg total) by mouth daily. verapamil ER (VERELAN PM) 120 MG 24 hr capsule Take 1 capsule (120 mg total) by mouth nightly at bedtime. documented as of this encounter Plan of Treatment Not on file documented as of this encounter Procedures Procedure Name Priority Date/Time Associated Diagnosis Comments CTA HEAD+NECK Routine 04/07/2024 3:26 PM CDT Cerebrovascular disease CREATININE STAT 04/07/2024 2:58 PM CDT documented in this encounter Results * CTA HEAD+NECK (04/07/2024 3:26 PM CDT) Anatomical Region Laterality Modality Head, Neck Computed Tomogra phy 04/08/2024 8:50 PM CDT Impressions 04/08/2024 8:58 PM CDT IMPRESSION: 1. Approximately 50% stenosis proximal right cervical ICA. 2. No evidence of occlusion of the proximal major segments of the [place] of Rosenbaum. 3. Additional multifocal atherosclerotic disease elsewhere as detailed. 4. Suspicious 9 mm irregular right upper lobe nodule. Advise further evaluation with PET/CT or tissue sampling. 5. Bilateral thyroid nodules measuring up to 3 cm on the left. Could further evaluate with follow-up thyroid ultrasound. Referred By: MIKE DUONG Interpreted By: Oliverio Zarate MD, 04/08/2024 8:50 PM Narrative 04/08/2024 8:58 PM CDT [address] [place] [address] INDICATION: Cerebrovascular disease. Episode of dizziness. EXAMINATION: Contrast enhanced CTA of the head and neck. TECHNIQUE: CT angiography of the head and neck were performed after uneventful intravenous administration of [address] dose reduction techniques were utilized. Internal carotid stenosis measured according to NASCET criteria. Axial and 3- D/MIP images were reformatted and reviewed. A dose lowering technique was used for this procedure, which may include, but is not limited to, dose reduction technique, automated exposure control, the use of iterative reconstruction, and ALARA (As Low As Reasonably Achievable) / Image Gently techniques. COMPARISON: None. ? FINDINGS: CTA NECK: Aorta and great vessel origins: Classic 3 vessel aortic arch origin anatomy. Atherosclerotic calcification and plaque noted along the aortic arch and mediastinal great vessels, without significant stenosis. Right carotid artery: Atherosclerotic plaque and calcification seen at the bifurcation and proximal cervical ICA with approximately 50% stenosis of the proximal ICA. Left carotid artery: Atherosclerotic calcification seen at the bifurcation and proximal cervical ICA, without significant stenosis. Right vertebral artery: Atherosclerotic calcification at the origin, without significant stenosis. Left vertebral artery: Atherosclerotic calcification at the origin without significant stenosis. CTA HEAD: Atherosclerotic calcifications noted along the intracranial ICA segments, without significant narrowing. Proximal portions of the anterior and middle cerebral arteries are patent. Anterior communicating artery not well visualized. Posterior circulation is codominant. Basilar artery patent to the terminus. Proximal portions of the posterior cerebral arteries, superior cerebellar arteries, and PICA branches are patent. Posterior communicating arteries not well visualized. SOFT TISSUES: Small vessel disease and volume loss. Bilateral lens replacements. Edentulous. Bilateral thyroid nodules measuring up to 3 cm on the left. Irregular 9 mm right upper lobe nodule. Emphysema. Degenerative changes noted in the spine. Procedure Note Oliverio Zarate MD - 04/08/2024 [place] [id number] Located [facility] [place] [address] INDICATION: Cerebrovascular disease. Episode of dizziness. EXAMINATION: Contrast enhanced CTA of the head and neck. TECHNIQUE: CT angiography of the head and neck were performed after uneventfulintravenous administration of [address] dose reductiontechniques were utilized. Internal carotid stenosis measured according toNASCET criteria. Axial and 3- D/MIP images were reformatted and reviewed. A dose lowering technique was used for this procedure, which may include,but is not limited to, dose reduction technique, automated exposurecontrol, the use of iterative reconstruction, and ALARA (As Low AsReasonably Achievable) / Image Gently techniques. COMPARISON: None. FINDINGS: CTA NECK: Aorta and great vessel origins: Classic 3 vessel aortic arch originanatomy. Atherosclerotic calcification and plaque noted along the aorticarch and mediastinal great vessels, without significant stenosis. Right carotid artery: Atherosclerotic plaque and calcification seen at thebifurcation and proximal cervical ICA with approximately 50% stenosis ofthe proximal ICA. Left carotid artery: Atherosclerotic calcification seen at the bifurcationand proximal cervical ICA, without significant stenosis. Right vertebral artery: Atherosclerotic calcification at the origin,without significant stenosis. Left vertebral artery: Atherosclerotic calcification at the origin withoutsignificant stenosis. CTA HEAD: Atherosclerotic calcifications noted along the intracranial ICA segments,without significant narrowing. Proximal portions of the anterior andmiddle cerebral arteries are patent. Anterior communicating artery notwell visualized. Posterior circulation is codominant. Basilar artery patent to theterminus. Proximal portions of the posterior cerebral arteries, superiorcerebellar arteries, and PICA branches are patent. Posterior communicatingarteries not well visualized. SOFT TISSUES: Small vessel disease and volume loss. Bilateral lens replacements.Edentulous. Bilateral thyroid nodules measuring up to 3 cm on the left.Irregular 9 mm right upper lobe nodule. Emphysema. Degenerative changesnoted in the spine. IMPRESSION: 1. Approximately 50% stenosis proximal right cervical ICA. 2. No evidence of occlusion of the proximal major segments of the circleof Rosenbaum. 3. Additional multifocal atherosclerotic disease elsewhere as detailed. 4. Suspicious 9 mm irregular right upper lobe nodule. Advise furtherevaluation with PET/CT or tissue sampling. 5. Bilateral thyroid nodules measuring up to 3 cm on the left. Couldfurther evaluate with follow-up thyroid ultrasound. Referred By: MIKE DUONG Interpreted By: Oliverio Zarate MD, 04/08/2024 8:50 PM Mike Duong MD CT Final Result * (ABNORMAL) CREATININE (04/07/2024 2:58 PM CDT) CREATININE S/P/B 1.04 0.70 - 1.30 MG/DL 04/07/2024 3:18 PM CDT [facility] GFR ESTIMATE 71(L) >89 ML/MIN/1. 73 M2 04/07/2024 3:18 PM CDT [facility] GFR NOTES GFR REFERENCE S: 04/07/2024 3:18 PM CDT [facility] Comment: THE ESTIMATED GFR IS CALCULATED USING THE 2020 CKD-EPI EQUATION. THE FOLLOWING CATEGORIES FOR GRADING RENAL FUNCTION ARE RECOMMENDED BY THE INTERNATIONAL SOCIETY OF NEPHROLOGY (KDIGO 2012 CLINICAL PRACTICE GUIDELINE). G1,NORMAL OR HIGH: >89 ml/min/1.73 m2 G2,MILDLY DECREASED: 60-89 ml/min/1.73 m2 G3A,MILDLY TO MODERATELY DECREASED: 45-59 ml/min/1.73 m2 G3B,MODERATELY TO SEVERELY DECREASED: 30-44 ml/min/1.73 m2 G4,SEVERELY DECREASED: 15-29 ml/min/1.73 m2 G5,KIDNEY FAILURE: <15 ml/min/1.73 m2 04/07/2024 2:58 PM CDT Mike Duong MD LABORATORY Final Result [facility] [address] [place] [address], documented in this encounter Visit Diagnoses Diagnosis Cerebrovascular disease Cerebrovascular disease, unspecified documented in this encounter Administered Medications Inactive Administered Medications - up to 3 most recent administrations Medication Order MAR Action Action Date Dose Rate Site iopamidol (ISOVUE-370) 76 % injection 93 mL 93 mL, Intravenous, IMG once as needed, Contrast, 1 dose, Starting on Sun04/07/24 at 1526, Until Sun04/07/24 at 1526 Given 04/07/2024 3:26 PM CDT 93 mLs documented in this encounter Care Teams Metallurgist Helper Relationship Specialty Start Date End Date Mike Duong MD [address] [place] [address] PCP - General INTERNAL MEDICINE 08/11/22 documented as of this encounter
--- OUTSIDE RECORDS SUMMARY | 2024-06-13 19:01 | XMS_ITS | Encounter Summary ---
Author Organization [facility] Address [address] [place] [address]. [place] [address] [place] [address] Care Team Providers Care Regional Dedicated Truck Driver Name Role Phone Mike Mckenzie MD Primary Care Provider [phone] Reason for Visit * Reason Comments Hip Pain Encounter Details Date Type Department Care Team (Late st Contact Info) Description 04/07/2024 2:29 PM CDT - 04/07/2024 2:35 PM CDT Emergency [facility] [address] [facility] [address] Hip Pain Discharge Disposition: Home or Self Care (Routine [...] on file documented as of this encounter Last Filed Vital Signs Vital Sign Reading Time Taken Comments Blood Pressure 133/76 04/07/2024 2:32 PM CDT Pulse 75 04/07/2024 2:32 PM CDT Temperature 35.6 ??C (96.1 ??F) 04/07/2024 2:32 PM CD T Respiratory Rate 18 04/07/2024 2:32 PM CDT Oxygen Saturation 96% 04/07/2024 2:32 PM CDT Inhaled Oxygen Concentration - - Weight - - Height - - Body Mass Index - - documented in this encounter Discharge Instructions * Discharge Instructions* Dayanna Rodas MD - 04/07/2024 2:32 PM CDT Follow-up with your primary care doctor return to the ER if having worsening symptoms or complaints. * Attachments The following attachments cannot be sent through Care Everywhere. * Lipoma ([place]) documented in this encounter Medications at Time of Discharge [...] at bedtime. documented as of this encounter ED Notes * Dayanna Rodas MD - 04/07/2024 2:32 PM CDT EMERGENCY DEPARTMENT NOTE History and Physical Patient: Javier Greene Date of : 1940 Subjective: Javier Greene is a 84-year-old male with history of GERD, hypertension who presents to ED with chief complaint soft nontender mass noted to left hip area for the past 2 to 3 weeks. Patient states he has been to have a scan but presents to the emergency department for a Band-Aid for his thumb. He has no other symptoms. No chest pain or shortness of breath. No fevers or chills. Patient has no other medical complaints at this time. Band-Aid was provided for patient's finger. Triage: Hip Pain . History: Past Medical History: Past Medical History: Diagnosis Date GERD (gastroesophageal reflux disease) High cholesterol Hypertension Radius and ulna distal fracture 08/09/2022 Past Surgical History: Past Surgical History: Procedure Laterality Date COLONOSCOPY, FLEXIBLE; PROXIMAL TO SPLENIC FLEXURE; WITH ABLATION OF TUMOR(S), POLYP(S), OR OTHER LESION(S) NOT AMENABLE TO REMOVAL BY HOT BIOPSY FORCEPS, BIPOLAR CAUTERY OR SNARE TEHNIQUE polyp removal REMOVAL GALLBLADDER SHOULDER ARTHROSCOPY/SURGERY Right Family History: No family history on file. Social History: Social History Tobacco Use Smoking status: Every Day Current packs/day: 2.00 Types: Cigarettes Smokeless tobacco: Never Vaping Use Vaping status: Never Used Substance Use Topics Alcohol use: Never Drug use: Never Review of Systems: Review of Systems ROS negative except as documented elsewhere in note. Physical Exam: Filed Vitals: 04/07/24 1432 BP: 133/76 Pulse: 75 Resp: 18 Temp: 96.1 ??F (35.6 ??C) TempSrc: Tympanic SpO2: 96% Nursing notes reviewed Physical Exam Vitals and nursing note reviewed. Constitutional: Appearance: Normal appearance. He is normal weight. HENT: Head: Normocephalic. Right Ear: External ear normal. Left Ear: External ear normal. Nose: Nose normal. Eyes: Pupils: Pupils are equal, round, and reactive to light. Cardiovascular: Rate and Rhythm: Normal rate. Pulses: Normal pulses. Pulmonary: Effort: Pulmonary effort is normal. Abdominal: General: Abdomen is flat. Musculoskeletal: Comments: To the left hip, 10 x 3 cm mobile soft mass consistent with a likely lipoma, no redness no induration. Skin: Capillary Refill: Capillary refill takes less than 2 seconds. Neurological: General: No focal deficit present. Mental Status: He is alert and oriented to person, place, and time. Mental status is at baseline. Psychiatric: Mood and Affect: Mood normal. Results: Pulse Ox: 99% on room air. No hypoxia, interpreted by me. Laboratory Data Reviewed: No results found for this visit on 04/07/24. Imaging Studies Reviewed: No orders to display Interventions: Medications Administered in ED: Medications - No data to display Assessment / Plan / MDM: [] PROBLEMS: Ddx associated with the above CC includes but is not limited to: Lipoma, cancer Chronic illnesses impacting care: None DATA: Independent historian used: Patient Prior external notes reviewed: None Labs & Imaging ordered/reviewed: Labs imaging in the emergency department not indicated for lipoma can be managed outpatient Discussion of management/testing with consultants: None RISK: Prescription drug management considered: None Diagnosis and treatment significantly limited by: Health literacy Hospitalization considered: No ED Diagnosis: SNOMED CT(R) 1. Lipoma of left lower extremity LIPOMA OF LEFT LOWER LIMB Disposition: Mike Mckenzie MD [address] [facility] [address] Schedule an appointment as soon as possible for a visit in 1 week Discharge Medications: New Prescriptions No medications on file @[facility]@ 04/07/24 Dayanna Rodas MD 04/07/24 1435 * Sascha Rice RN - 04/07/2024 2:24 PM CDT Arrives per pov with a caregiver )who is not a historian for this pt) with c/o bump on his l hip. Pt reports he fell sometime ago, was treated and admitted at [facility] for his various injuries. Today pt has an appt for a ct scan here and decided to check in to get a bandage for his thumb wound and to have the bump on his hip checked out. documented in this encounter Plan of Treatment Not on file documented as of this encounter Visit Diagnoses Diagnosis Lipoma of left lower extremity- Primary documented in this encounter Care Teams Regional Dedicated Truck Driver Relationship Specialty Start Date End Date Mike Mckenzie MD [address] [place] [address] PCP - General INTERNAL MEDICINE 08/11/22 documented as of this encounter
--- OUTSIDE RECORDS SUMMARY | 2024-06-13 19:02 | XMS_ITS | Encounter Summary ---
Author Organization [facility] Address [address] [place] [address]. [place] [address] [place] [address] Care Team Providers Care Job Coaching Name Role Phone Mike Mckenzie MD Primary Care Provider [phone] Encounter Details Date Type Department Care Team (Late st Contact Info) Description 02/05/2024 1:09 PM CDT - 02/05/2024 11:59 PM CDT Hospital Encounter [facility] [address] [place] [address] Mike Mckenzie MD [address] [place] [phone] Discharge Disposition: Home or Self Care (Routine [...] Procedure Name Priority Date/Time Associated Diagnosis Comments DRUG MONITORING, NOTES AND COMMENTS (REFLEX ONLY) Routine 02/05/2024 1:54 PM CDT DRUG MONITORING, PANEL 1, WITH CONFIRMATION (U) Routine 02/05/2024 1:54 PM CDT Nausea Vomiting COPD exacerbation ([facility]) Encounter for long-term (current) use of medications HC URINALYSIS AUTO W/MICRO Routine 02/05/2024 1:54 PM CDT Nausea Vomiting COPD exacerbation ([facility] HHS/HCC) COMPREHENSIVE METABOLIC PANEL Routine 02/05/2024 1:47 PM CDT Nausea Vomiting COPD exacerbation ([facility] HHS/HCC) C-REACTIVE PROTEIN Routine 02/05/2024 1: 47 PM CDT Nausea Vomiting COPD exacerbation ([facility] HHS/[facility]) CBC W/DIFF AUTOMATED Routine 02/05/2024 1:47 PM CDT Nausea Vomiting COPD exacerbation ([facility] HHS/HCC) AMYLASE Routine 02/05/2024 1:47 PM CDT Nausea Vomiting COPD exacerbation (CMS/HCC HHS/HCC) LIPASE Routine 02/05/2024 1:47 PM CDT Nausea Vomiting COPD exacerbation (CMS/HCC HHS/HCC) THEOPHYLLINE Routine 02/05/2024 1:47 PM CDT Nausea Vomiting COPD exacerbation (CMS/HCC HHS/HCC) documented in this encounter Results * DRUG MONITORING, NOTES AND COMMENTS (REFLEX ONLY) (02/05/2024 1:54 PM CDT) Note 02/07/2024 12:37 PM CDT American Board of Addiction Medicine (ABAM) JAYESH TYLER Comment: ? This drug testing is for medical treatment only. Analysis was performed as non-forensic testing and these results should be used only by healthcare providers to render diagnosis or treatment, or to monitor progress of medical conditions. ? Healthcare Providers needing Interpretation assistance, please contact us at [phone] ( ) M-F, 8am to 10pm EST Test Performed by Miri Covarrubias, [employer] [facility], [address] [place] [address] Byron Ward M.D., Ph.D., Director of Laboratories , [facility] [id number] 02/05/2024 1:54 PM CDT Mike Mckenzie MD LABORATORY Final Result [facility] [place], [place] , * DRUG SCREEN, URINE W/ CONFIRM (SAP,PAIN) (02/05/2024 1:54 PM CDT) CREATININE PAIN MNGMT (U) 171.7 >=20.0 mg/dL 02/07/2024 12:37 PM CDT [facility] pH PM (U) 5.2 4.5 - 9.0 02/07/2024 12:37 PM CDT [facility] OXIDANT NEGATIVE <200 mcg/mL 02/07/2024 12:37 PM CDT [facility] ABNORMAL SPEC VALIDITY END OF REPORT 02/07/2024 12:37 PM CDT [facility] AMPHETAMINES PM NEGATIVE <500 ng/mL 02/07/2024 12:37 PM CDT [facility] BARBITURATES PM (U) NEGATIVE <300 ng/mL 02/07/2024 12:37 PM CDT [facility] BENZODIAZEPINES PM (U) NEGATIVE <100 ng/mL 02/07/2024 12:37 PM CDT [facility] COCAINE METABOLITE PM (U) NEGATIVE <100 ng/mL 02/07/2024 12:37 PM CDT [facility] MARIJUANA METABOLITE PM (U) NEGATIVE <20 ng/mL 02/07/2024 12:37 PM CDT [facility] METHADONE PM (U) NEGATIVE <100 ng/mL 02/07/2024 12:37 PM CDT [facility] OPIATES PM (U) NEGATIVE <100 ng/mL 02/07/2024 12:37 PM CDT [facility] OXYCODONE PM (U) NEGATIVE <100 ng/mL 02/07/2024 12:37 PM CDT [facility] PHENCYCLIDINE PCP PM (U) NEGATIVE <25 ng/mL 02/07/2024 12:37 PM CDT [facility] Comment: Test Performed by Miri Covarrubias, [facility], [address] [place], [place] Byron Ward M.D., Ph.D., Director of Laboratories , [facility] [id number] 02/05/2024 1:54 PM CDT Mike Mckenzie MD LABORATORY Final Result [facility] [address] [place] [address], [place] [phone] * (ABNORMAL) URINALYSIS (02/05/2024 1:54 PM CDT) COLOR (U) DARK YELLOW 02/05/2024 2:25 PM CDT [facility] TRANSPARENCY SLIGHTLY CLOUDY 02/05/2024 2:25 PM CDT [facility] SPECIFIC GRAVITY (U) 1.025 1.000 - 1.025 02/05/2024 2:25 PM CDT [facility] U PH 5.5 5.0 - 8.0 02/05/2024 2:25 PM CDT [facility] LEUKOCYTES (U) 1+(A) NEGATIVE 02/05/2024 2:25 PM CDT [facility] NITRITES NEGATIVE NEGATIVE 02/05/2024 2:25 PM CDT [facility] PROTEIN RANDOM (U) 2+(A) NEGATIVE 02/05/2024 2:25 PM CDT [facility] GLUCOSE (U) NEGATIVE NEGATIVE 02/05/2024 2:25 PM CDT [facility] KETONES MG/DL (U) NEGATIVE NEGATIVE 02/05/2024 2:25 PM CDT [facility] UROBILINOGEN 1.0(H) <1.0 EU/DL 02/05/2024 2:25 PM CDT [facility] BILIRUBIN (U) NEGATIVE NEGATIVE 02/05/2024 2:25 PM CDT [facility] BLOOD (U) TRACE(A) NEGATIVE 02/05/2024 2:25 PM CDT [facility] WBC/HPF 0-5 0 - 5 /HPF 02/05/2024 2:25 PM CDT [facility] RBC/HPF 0-5 0 - 5 /HPF 02/05/2024 2:25 PM CDT [facility] EPI/LPF RARE /LPF 02/05/2024 2:25 PM CDT [facility] BACTERIA (U) TRACE /HPF 02/05/2024 2:25 PM CDT [facility] URINE SPECIMEN OBTAINED BY CLEAN CATCH PROCEDURE / Unknown 02/05/2024 1:54 PM CDT us Mike Mckenzie MD URINE ORDERABLES Final Result [address] [address], * (ABNORMAL) THEOPHYLLINE (02/05/2024 1:47 PM CDT) THEOPHYLLINE 4.5(L) 10.0 - 20.0 MCG/ML 02/06/2024 12:19 PM CDT [facility] 02/05/2024 1:47 PM CDT us Mike Mckenzie MD LABORATORY Final Result Performing Organization Address City/[facility]/ZIP Co de Phone Number [facility] [address] [place] [address], [place] [phone] * (ABNORMAL) C-REACTIVE PROTEIN (02/05/2024 1:47 PM CDT) C-REACTIVE PROTEIN 9.83(H) <0.30 mg/dL 02/05/2024 2:28 PM CDT [facility] 02/05/2024 1:47 PM CDT us Mike Mckenzie MD LABORATORY Final Result Performing Organization Address City/[facility]/ZIP Co de Phone Number [facility] [address] [place] [address], [place] [phone] * LIPASE (02/05/2024 1:47 PM CDT) Pathologist [facility] LIPASE 25 16 - 77 UNITS/L 02/05/2024 2:28 PM CDT [facility] 02/05/2024 1:47 PM CDT us Mike Mckenzie MD LABORATORY Final Result Performing Organization Address [facility]/ZIP Co de Phone Number [facility] [address] [place] [address], * AMYLASE (02/05/2024 1:47 PM CDT) Pathologist [facility] AMYLASE S/P/B 40 25 - 115 UNITS/L 02/05/2024 2:28 PM CDT [facility] 02/05/2024 1:47 PM CDT us Mike Mckenzie MD LABORATORY Final Result Performing Organization Address [facility] Co de Phone Number [facility] [address] [place] [address], [place] [phone] * (ABNORMAL) CBC W/DIFF AUTOMATED (02/05/2024 1:47 PM CDT) [facility] WBC 12.12(H) 4.00 - 10.80 x10'3/uL 02/05/2024 2:15 PM CDT [facility] RBC 5.15 4.50 - 6.10 x10'6/uL 02/05/2024 2:15 PM CDT [facility] HGB 15.5 13.0 - 18.0 G/DL 02/05/2024 2:15 PM CDT [facility] HCT 45.5 37.0 - 52.0 % 02/05/2024 2:15 PM CDT [facility] MCV 88.3 78.0 - 100.0 FL 02/05/2024 2:15 PM CDT [facility] MCH 30.1 27.0 - 31.0 PG 02/05/2024 2:15 PM CDT [facility] MCHC 34.1 33.0 - 36.0 G/DL 02/05/2024 2:15 PM CDT [facility] RDW 14.0 11.5 - 14.5 % 02/05/2024 2:15 PM CDT [facility] PLT 281 150 - 350 x10'3/uL 02/05/2024 2:15 PM CDT [facility] MPV 10.5(H) 7.4 - 10.4 FL 02/05/2024 2:15 PM CDT [facility] CBC COMMENT NORMAL REFERENCE RANGE NOT ESTABLISHED FOR THE PROPORTIONAL LEUKOCYTE DIFFERENTIAL. 02/05/2024 2:15 PM CDT [facility] NEUTROPHILS % 90.4 % 02/05/2024 2:15 PM CDT [facility] LYMPHOCYTES % 4.2 % 02/05/2024 2:15 PM CDT [facility] MONOCYTES % 4.9 % 02/05/2024 2:15 PM CDT [facility] EOSINOPHILS % 0.0 % 02/05/2024 2:15 PM CDT [facility] BASOPHILS % 0.2 % 02/05/2024 2:15 PM CDT [facility] IMMATURE GRANS % 0.3 % 02/05/20 2:15 PM CDT [facility] NRBC 0.0 % 02/05/2024 2:15 PM CDT [facility] ABS. NEUTROPHILS 10.95(H) 1.60 - 8.30 x10'3/uL 02/05/2024 2:15 PM CDT [facility] ABS. LYMPHOCYTES 0.51(L) 0.80 - 4.70 x10'3/uL 02/05/2024 2:15 PM CDT [facility] ABS. MONOCYTES 0.59 0.00 - 1.50 x10'3/uL 02/05/2024 2:15 PM CDT [facility] ABS. EOSINOPHILS 0.00 0.00 - 0.40 x10'3/uL 02/05/2024 2:15 PM CDT [facility] ABS. BASOPHILS 0.03 0.00 - 0.20 x10'3/uL 02/05/2024 2:15 PM CDT [facility] ABS. IMMATURE GRANULOCYTES 0.04(H) 0.00 - 0.03 x10'3/uL 02/05/2024 2:15 PM CDT [facility] ABS. NUCLEATED RBC'S 0.00 0.00 - 0.01 x10'3/uL 02/05/2024 2:15 PM CDT [facility] 02/05/2024 1:47 PM CDT Mike Mckenzie MD LABORATORY Final Result [facility] [address] [place] [id number], * (ABNORMAL) COMPREHENSIVE METABOLIC PANEL (02/05/2024 1:47 PM CDT) SODIUM S/P/B 135(L) 136 - 145 MMOL/L 02/05/2024 2:28 PM CDT [facility] POTASSIUM S/P/B 4.0 3.5 - 5.1 MMOL/L 02/05/2024 2:28 PM CDT [facility] CHLORIDE S/P/B 102 98 - 107 MMOL/L 02/05/2024 2:28 PM CDT [facility] CO2 24.0 21.0 - 32.0 MMOL/L 02/05/2024 2:28 PM CDT [facility] GLUCOSE 135(H) 70 - 99 MG/DL 02/05/2024 2:28 PM CDT [facility] Comment: FASTING GLUCOSE 100 TO 125 MG/DL IS CONSISTENT WITH IMPAIRED FASTING GLUCOSE. FASTING GLUCOSE >125 MG/DL IS CONSISTENT WITH DIABETES. RANDOM GLUCOSE >200 MG/DL WITH HYPERGLYCEMIC SYMPTOMS IS CONSISTENT WITH DIABETES. PER ADA GUIDELINES BUN 26(H) 6 - 24 MG/DL 02/05/2024 2:28 PM CDT [facility] CREATININE S/P/B 1.37(H) 0.70 - 1.30 MG/DL 02/05/2024 2:28 PM CDT [facility] CALCIUM S/P/B 8.7 8.4 - 10.5 MG/DL 02/05/2024 2:28 PM [facility] BILIRUBIN TOTAL S/P/B 0.9 0.2 - 1.0 MG/DL 02/05/2024 2:28 PM T [facility] Comment: THIS ASSAY IS NOT RECOMMENDED FOR PATIENTS UNDERGOING TREATMENT WITH ELTROMBOPAG DUE TO THE POTENTIAL FOR FALSELY ELEVATED RESULTS. ALKALINE PHOSPHATASE S/P/B 105 45 - 115 U/L 02/05/2024 2:28 PM T [facility] AST 27 15 - 37 U/L 02/05/2024 2:28 PM [facility] ALT 34 16 - 63 U/L 02/05/2024 2:28 PM [facility] TOTAL PROTEIN S/P/B 7.8 6.4 - 8.2 G/DL 02/05/2024 2:28 PM T [facility] ALBUMIN S/P/B 3.3(L) 3.4 - 5.0 G/DL 02/05/2024 2:28 PM [facility] ANION GAP 9.0 5.0 - 15.0 MMOL/L 02/05/2024 2:28 PM [facility] OSMOLALITY (CALC) 287 MOSM/KG 024 2:28 PM T [facility] Comment:REFERENCE RANGE NOT ESTABLISHED GFR ESTIMATE 52(L) >89 ML/MIN/1. 73 M2 02/05/2024 2:28 PM T [facility] GFR NOTES GFR REFERENCE S: 02/05/2024 2:28 PM [facility] Comment: THE ESTIMATED GFR IS CALCULATED [...] ml/min/1.73 m2 G5,KIDNEY FAILURE: <15 ml/min/1.73 m2 02/05/2024 1:47 PM CDT Mike Mckenzie MD LABORATORY Final Result [facility] [address] [place] [address], documented in this encounter Visit Diagnoses Diagnosis Nausea Nausea alone Vomiting Vomiting alone COPD exacerbation ([facility]) Obstructive chronic bronchitis with exacerbation Encounter for long-term (current) use of medications Encounter for long-term (current) use of other medications documented in this encounter Care Teams Job Coaching Relationship Specialty Start Date End Date Mike Mckenzie MD [address] [place] [address] PCP - General INTERNAL MEDICINE 08/11/22 documented as of this encounter
--- OUTSIDE RECORDS SUMMARY | 2024-06-13 19:02 | XMS_ITS | Encounter Summary ---
Author Organization [facility] Address [address] [place] [address]. [place], [place] [address] [place] [address] Care Team Providers Care Housing Director Name Role Phone Mike Mckenzie MD Primary Care Provider [phone] Encounter Details Date Type Department Care Team (Latest Contact Info) Description 02/05/2024 Travel Social History Tobacco Use Types Packs/Day [...] on filedocumented in this encounter Care Teams Housing Director Relationship Specialty Start Date End Date Mike Mckenzie MD [address] [place] [address] PCP - General INTERNAL MEDICINE 08/11/22 documented as of this encounter
--- OUTSIDE RECORDS SUMMARY | 2024-06-13 19:02 | XMS_ITS | Encounter Summary ---
Author Organization [facility] Address [address] [place] [address]. [place] [address] [place] [address] Care Team Providers Care Environmental Sciences Professor Name Role Phone Mike Mckenzie MD Primary Care Provider [phone] Encounter Details Date Type Department Care Team (Late st Contact Info) Description 08/11/2022 Orders Only [place] [id number] Katya Carney RN Social History Tobacco Use Types Packs/Day Years Used Date Smoking Tobacco: Smoker, Current Status Unknown Sex and Gender Information Value Date Recorded Sex Assigned at Not on file Legal Sex Male 8:40 PM CDT Gender Identity Not on file Sexual Orientation Not on file documented as of this encounter Plan of Treatment Not on file documented as of this encounter Results * XR WRIST RT 2V (08/16/2022 2:57 PM ASH CONVEYOR OPERATOR) Anatomical Region Laterality Modality Wrist Radiographic Steph ging 08/17/2022 8:43 AM ASH CONVEYOR OPERATOR Impressions 08/17/2022 8:45 AM ASH CONVEYOR OPERATOR IMPRESSION: Stable alignment of distal radial fracture following splint application. Ordered By: ZAIN MERAZ Interpreted By: Jc Pickett MD, 08/17/2022 8:43 AM Narrative 08/17/2022 8:45 AM ASH CONVEYOR OPERATOR Examination: Right wrist. Exam time: 1407 hours. Clinical history: Fracture follow-up. Comparison: 08/09/2022 ([facility]). Technique: PA and lateral views. Findings: A splint is now in place. Minimally impacted and comminuted transverse fracture of the distal radius is again evident with stable, anatomic alignment. The appearance of the fracture has not appreciably changed. No other fracture is identified. No other significant bone or joint abnormality is noted. The soft tissues are unremarkable. Procedure Note Jc Pickett MD - 08/17/2022 Examination: Right wrist. Exam time: 1407 hours. Clinical history: Fracture follow-up. Comparison: 08/09/2022 ([facility]). Technique: PA and lateral views. Findings: A splint is now in place. Minimally impacted and comminutedtransverse fracture of the distal radius is again evident with stable,anatomic alignment. The appearance of the fracture has not appreciablychanged. No other fracture is identified. No other significant bone orjoint abnormality is noted. The soft tissues are unremarkable. IMPRESSION: Stable alignment of distal radial fracture following splint application. Ordered By: ZAIN MERAZ Interpreted By: Jc Pickett MD, 08/17/2022 8:43 AM Zain Meraz MD GENERAL IMAGING Final Result documented in this encounter Visit Diagnoses Diagnosis Wrist pain, acute, right- Primary Wrist pain, acute, right documented in this encounter Care Teams Environmental Sciences Professor Relationship Specialty Start Date End Date Mike Mckenzie MD [address] [place] [phone] PCP - General INTERNAL MEDICINE 08/11/22 documented as of this encounter
--- OUTSIDE RECORDS SUMMARY | 2024-06-13 19:02 | XMS_ITS | Encounter Summary ---
Author Organization [facility] Address [address] [place] [address]. [place] [address] [place] [address] Care Team Providers Care Selvage Machine Operator Name Role Phone Mike Mckenzie MD Primary Care Provider [phone] Encounter Details Date Type Department Care Team (Late st Contact Info) Description 08/17/2022 Orders Only [facility] [address] [address] Zain Meraz MD [address] [place] [address] Social History Tobacco Use Types Packs/Day Years Used Date Smoking Tobacco: Smoker, Current Status Unknown Sex and Gender Information Value Date Recorded Sex Assigned at Not on file Legal Sex Male 8:40 PM CDT Gender Identity Not on file Sexual Orientation Not on file COVID-19 Exposure Response Date Recorded In the last 10 days, have yo u been in contact with someone who was confirmed or suspected to have Coronavirus/COVID-19? No / Unsure 08/16/2022 2:22 PM SCAFFOLD WORKER documented as of this encounter Plan of Treatment Not on file documented as of this encounter Results * XR WRIST RT 2V (08/23/2022 2:33 PM SCAFFOLD WORKER) Anatomical Region Laterality Modality Wrist Radiographic Steph ging 08/23/2022 2:55 PM SCAFFOLD WORKER Impressions 08/23/2022 2:57 PM SCAFFOLD WORKER IMPRESSION: 1) Impacted distal right radius fracture with mild residual deformity similar to previous study. Ordered By: ZAIN MERAZ Interpreted By: Seymour Gaona MD, 08/23/2022 2:55 PM Narrative 08/23/2022 2:57 PM SCAFFOLD WORKER Examination: XR WRIST RT 2V Exam time: 08/23/2022 2:33 PM Clinical history: Follow-up fracture Comparison: 08/16/2022 Technique: AP and lateral obtained through splint Findings: The images again demonstrate subtle residual deformity associated with impacted distal right radius fracture. This is similar appearance to the previous study. No other definite evidence of fracture is demonstrated although detail is limited by the splint. Joint spaces are fairly well-maintained. Procedure Note Seymour Gaona MD - 08/23/2022 Examination: XR WRIST RT 2V Exam time: 08/23/2022 2:33 PM Clinical history: Follow-up fracture Comparison: 08/16/2022 Technique: AP and lateral obtained through splint Findings: The images again demonstrate subtle residual deformityassociated with impacted distal right radius fracture. This is similarappearance to the previous study. No other definite evidence of fractureis demonstrated although detail is limited by the splint. Joint spaces arefairly well-maintained. IMPRESSION: 1) Impacted distal right radius fracture with mild residual deformitysimilar to previous study. Ordered By: ZAIN MERAZ Interpreted By: Seymour Gaona MD, 08/23/2022 2:55 PM Zain Meraz MD GENERAL IMAGING Final Result documented in this encounter Visit Diagnoses Diagnosis Other closed intra-articular fracture of distal end of right radius, initial encounter- Primary Other closed intra-articular fracture of distal end of right radius, initial encounter documented in this encounter Care Teams Selvage Machine Operator Relationship Specialty Start Date End Date Mike Mckenzie MD [address] [place] [address] PCP - General INTERNAL MEDICINE 08/11/22 documented as of this encounter
--- OUTSIDE RECORDS SUMMARY | 2024-06-13 19:02 | XMS_ITS | Encounter Summary ---
Author Organization [facility] Address [address] [place] [address]. [place], [place] [address] [place] [address] Care Team Providers Care Lead Material Handler Name Role Phone Mike Mckenzie MD Primary Care Provider [phone] Encounter Details Date Type Department Care Team (Latest Contact Info) Description 09/28/2022 2:36 PM CDT - 09/28/2022 11:59 PM CDT Hospital Encounter [facility] [address] [place] [address] Zain Meraz MD [address] [place] [address] Discharge Disposition: Home or Self Care (Routine [...] suspected to have Coronavirus/COVID-19? No / Unsure 09/28/2022 2:34 PM CDT documented as of this encounter Medications at [...] Procedure Name Priority Date/Time Associated Diagnosis Comments XR WRIST RT 2V Routine 09/28/2022 3:18 PM CDT Other closed intra-articular fracture of distal end of right radius, initial encounter documented in this encounter Results * XR WRIST RT 2V (09/28/2022 3:18 PM CDT) Anatomical Region Laterality Modality Wrist Radiographic Steph ging 09/29/2022 6:05 AM CDT Impressions 09/29/2022 6:06 AM CDT IMPRESSION: 1. ??HEALING IMPACTED DISTAL RADIUS FRACTURE WITH MILD RESIDUAL DEFORMITY. Signed: Seymour Gaona MD Referred By: ?? Interpreted By: Seymour Gaona MD, 09/29/2022 6:05 AM Narrative 09/29/2022 6:06 AM CDT PATIENT NAME: STEPHANIE WARREN EXAM: Wrist 2 view DATE OF EXAM: 09/28/2022 COMPARISON EXAM: 08/23/2022 INDICATION: Follow-up fracture TECHNIQUE: AP and lateral FINDINGS: The images demonstrate a healing impacted intra-articular fracture of the distal radius with mild residual deformity. ??No significant abnormal angulation. ??No other evidence of fracture or dislocation. Procedure Note Seymour Gaona MD - 09/29/2022 PATIENT NAME: STEPHANIE WARREN EXAM: Wrist 2 view DATE OF EXAM: 09/28/2022 COMPARISON EXAM: 08/23/2022 INDICATION: Follow-up fracture TECHNIQUE: AP and lateral FINDINGS: The images demonstrate a healing impacted intra-articularfracture of the distal radius with mild residual deformity. Nosignificant abnormal angulation. No other evidence of fracture ordislocation. IMPRESSION: 1. HEALING IMPACTED DISTAL RADIUS FRACTURE WITH MILD RESIDUALDEFORMITY. Signed: Seymour Gaona MD Referred By: Interpreted By: Seymour Gaona MD, 09/29/2022 6:05 AM Zain Meraz MD GENERAL IMAGING Final Result documented in this encounter Visit Diagnoses Diagnosis Other closed intra-articular fracture of distal end of right radius, initial encounter documented in this encounter Care Teams Lead Material Handler Relationship Specialty Start Date End Date Mike Mckenzie MD [address] [place] [phone] PCP - General INTERNAL MEDICINE 08/11/22 documented as of this encounter
--- OUTSIDE RECORDS SUMMARY | 2024-06-13 19:02 | XMS_ITS | Encounter Summary ---
Author Organization [facility] Address [address] [place] [address]. [place], [place] [address] [place] [address] Care Team Providers Care Attending Anesthesiologist Name Role Phone Mike Mckenzie MD Primary Care Provider [phone] Encounter Details Date Type Department Care Team (Latest Contact Info) Description 01/16/2023 Travel Social History Tobacco Use Types Packs/Day [...] on filedocumented in this encounter Care Teams Attending Anesthesiologist Relationship Specialty Start Date End Date Mike Mckenzie MD [address] [place] [address] PCP - General INTERNAL MEDICINE 08/11/22 documented as of this encounter
--- OUTSIDE RECORDS SUMMARY | 2024-06-13 19:02 | XMS_ITS | Encounter Summary ---
Author Organization [facility] Address [address] [place] [address]. [place], [place] [address] [place] [address] Care Team Providers Care Crisis Counselor Name Role Phone Mike Mckenzie MD Primary Care Provider [phone] Encounter Details Date Type Department Care Team (Latest Contact Info) Description 08/23/2022 Travel Social History Tobacco Use Types Packs/Day [...] suspected to have Coronavirus/COVID-19? No / Unsure 08/23/2022 2:25 PM ASSEMBLER MOLDED FRAMES documented as of this encounter Plan of Treatment Not on file documented as of this encounter Visit Diagnoses Not on filedocumented in this encounter Care Teams Crisis Counselor Relationship Specialty Start Date End Date Mike Mckenzie MD [address] [place] [address] PCP - General INTERNAL MEDICINE 08/11/22 documented as of this encounter
--- OUTSIDE RECORDS SUMMARY | 2024-06-13 19:02 | XMS_ITS | Encounter Summary ---
Author Organization [facility] Address [address] [place] [address]. [place] [address] [place] [address] Care Team Providers Care Ekg Technician Name Role Phone Mike Mckenzie MD Primary Care Provider [phone] Encounter Details Date Type Department Care Team (Late st Contact Info) Description 02/05/2024 Orders Only [facility] [address] [address] Mike Mckenzie MD [address] [place] [id number] Social History Tobacco Use Types Packs/Day Years [...] documented as of this encounter Results * DRUG SCREEN, URINE W/ CONFIRM (SAP,PAIN) [...] NEGATIVE <25 ng/mL 02/07/2024 12:37 PM CDT [facility] Comment: Test Performed by Miri Covarrubias, [facility], [address] [place], [place] Byron Ward M.D., Ph.D., Director of Laboratories , [place] [id number] 02/05/2024 1:54 PM CDT Mike Mckenzie MD LABORATORY Final Result [facility] [place], [place] , * (ABNORMAL) URINALYSIS (02/05/2024 1:54 PM CDT) COLOR (U) DARK YELLOW 02/05/2024 2:25 PM CDT [facility] TRANSPARENCY SLIGHTLY CLOUDY 02/05/2024 2:25 PM CDT [facility] SPECIFIC GRAVITY (U) 1.025 1.000 - 1.025 02/05/2024 2:25 PM CDT [facility] U PH 5.5 5.0 - 8.0 02/05/2024 2:25 PM CDT [facility] LEUKOCYTES (U) 1+(A) NEGATIVE 02/05/2024 2:25 PM CDT [facility] NITRITES NEGATIVE NEGATIVE 02/05/2024 2:25 PM CDT [facility] PROTEIN RANDOM (U) 2+(A) NEGATIVE 02/05/2024 2:25 PM CDT [facility] GLUCOSE (U) NEGATIVE NEGATIVE 02/05/2024 2:25 PM CDT [facility] KETONES MG/DL (U) NEGATIVE NEGATIVE 02/05/2024 2:25 PM CDT [facility] UROBILINOGEN 1.0(H) <1.0 EU/DL 02/05/2024 2:25 PM CDT [facility] BILIRUBIN (U) NEGATIVE NEGATIVE 02/05/2024 2:25 PM CDT [facility] BLOOD (U) TRACE(A) NEGATIVE 02/05/2024 2:25 PM CDT [facility] WBC/HPF 0-5 0 - 5 /HPF 02/05/2024 2:25 PM CDT [facility] RBC/HPF 0-5 0 - 5 /HPF 02/05/2024 2:25 PM CDT [facility] EPI/LPF RARE /LPF 02/05/2024 2:25 PM CDT [facility] BACTERIA (U) TRACE /HPF 02/05/2024 2:25 PM CDT [facility] URINE SPECIMEN OBTAINED BY CLEAN CATCH PROCEDURE / Unknown 02/05/2024 1:54 PM CDT us Mike Mckenzie MD URINE ORDERABLES Final Result Performing Organization Address [facility] Co de Phone Number [facility] [address] [place] [address], [place] [phone] * (ABNORMAL) THEOPHYLLINE (02/05/2024 1:47 PM CDT) THEOPHYLLINE 4.5(L) 10.0 - 20.0 MCG/ML 02/06/2024 12:19 PM CDT [facility] 02/05/2024 1:47 PM CDT us Mike Mckenzie MD LABORATORY Final Result Performing Organization Address [facility] de Phone Number [facility] [address] [place] [address], [place] [phone] * (ABNORMAL) C-REACTIVE PROTEIN (02/05/2024 1:47 PM CDT) C-REACTIVE PROTEIN 9.83(H) <0.30 mg/dL 02/05/2024 2:28 PM CDT [facility] 02/05/2024 1:47 PM CDT us Mike Mckenzie MD LABORATORY Final Result Performing Organization Address [facility] Co de Phone Number [facility] [place] [address], [place] [phone] * LIPASE (02/05/2024 1:47 PM CDT) LIPASE 25 16 - 77 UNITS/L 02/05/2024 2:28 PM CDT [facility] 02/05/2024 1:47 PM CDT us Mike Mckenzie MD LABORATORY Final Result [facility] [address] [place] [address], * AMYLASE (02/05/2024 1:47 PM CDT) AMYLASE S/P/B 40 25 - 115 UNITS/L 02/05/2024 2:28 PM CDT [facility] 02/05/2024 1:47 PM CDT Mike Mckenzie MD LABORATORY Final Result [facility] [place] [address], * (ABNORMAL) CBC W/DIFF AUTOMATED (02/05/2024 1:47 PM CDT) Pathologist [facility] WBC 12.12(H) 4.00 - 10.80 x10'3/uL 02/05/2024 2:15 PM CDT [facility] RBC 5.15 4.50 - 6.10 x10'6/uL 02/05/2024 2:15 PM CDT [facility] HGB 15.5 13.0 - 18.0 G/DL 02/05/2024 2:15 PM CDT [facility] HCT 45.5 37.0 - 52.0 % 02/05/2024 2:15 PM CDT [facility] MCV 88.3 78.0 - 100.0 FL 02/05/2024 2:15 PM CDT [facility] MCH 30.1 27.0 - 31.0 PG 02/05/2024 2:15 PM CDT [facility] MCHC 34.1 33.0 - 36.0 G/DL 02/05/2024 2:15 PM CDT [facility] RDW 14.0 11.5 - 14.5 % 02/05/2024 2:15 PM CDT [facility] PLT 281 150 - 350 x10'3/uL 02/05/2024 2:15 PM CDT [facility] MPV 10.5(H) 7.4 - 10.4 FL 02/05/2024 2:15 PM CDT [facility] CBC COMMENT NORMAL REFERENCE RANGE NOT ESTABLISHED FOR THE PROPORTIONAL LEUKOCYTE DIFFERENTIAL. 02/05/2024 2:15 PM CDT [facility] NEUTROPHILS % 90.4 % 02/05/2024 2:15 PM CDT [facility] LYMPHOCYTES % 4.2 % 02/05/2024 2:15 PM CDT [facility] MONOCYTES % 4.9 % 02/05/2024 2:15 PM CDT [facility] EOSINOPHILS % 0.0 % 02/05/2024 2:15 PM CDT [facility] BASOPHILS % 0.2 % 02/05/2024 2:15 PM CDT [facility] IMMATURE GRANS % 0.3 % 02/05/20 2:15 PM CDT [facility] NRBC 0.0 % 02/05/2024 2:15 PM CDT [facility] ABS. NEUTROPHILS 10.95(H) 1.60 - 8.30 x10'3/uL 02/05/2024 2:15 PM CDT [facility] ABS. LYMPHOCYTES 0.51(L) 0.80 - 4.70 x10'3/uL 02/05/2024 2:15 PM CDT [facility] ABS. MONOCYTES 0.59 0.00 - 1.50 x10'3/uL 02/05/2024 2:15 PM CDT [facility] ABS. EOSINOPHILS 0.00 0.00 - 0.40 x10'3/uL 02/05/2024 2:15 PM CDT [facility] ABS. BASOPHILS 0.03 0.00 - 0.20 x10'3/uL 02/05/2024 2:15 PM CDT [facility] ABS. IMMATURE GRANULOCYTES 0.04(H) 0.00 - 0.03 x10'3/uL 02/05/2024 2:15 PM CDT [facility] ABS. NUCLEATED RBC'S 0.00 0.00 - 0.01 x10'3/uL 02/05/2024 2:15 PM CDT [facility] 02/05/2024 1:47 PM CDT Mike Mckenzie MD LABORATORY Final Result [facility] [address] [place] [address] [place] [address], * (ABNORMAL) COMPREHENSIVE METABOLIC PANEL (02/05/2024 1:47 PM CDT) SODIUM S/P/B 135(L) 136 - 145 MMOL/L 02/05/2024 2:28 PM CDT [facility] POTASSIUM S/P/B 4.0 3.5 - 5.1 MMOL/L 02/05/2024 2:28 PM CDT [facility] CHLORIDE S/P/B 102 98 - 107 MMOL/L 02/05/2024 2:28 PM CDT [facility] CO2 24.0 21.0 - 32.0 MMOL/L 02/05/2024 2:28 PM CDT [facility] GLUCOSE 135(H) 70 - 99 MG/DL 02/05/2024 2:28 PM CDT [facility] Comment: FASTING GLUCOSE 100 TO 125 MG/DL IS CONSISTENT WITH IMPAIRED FASTING GLUCOSE. FASTING GLUCOSE >125 MG/DL IS CONSISTENT WITH DIABETES. RANDOM GLUCOSE >200 MG/DL WITH HYPERGLYCEMIC SYMPTOMS IS CONSISTENT WITH DIABETES. PER ADA GUIDELINES BUN 26(H) 6 - 24 MG/DL 02/05/2024 2:28 PM CDT [facility] CREATININE S/P/B 1.37(H) 0.70 - 1.30 MG/DL 02/05/2024 2:28 PM CDT [facility] CALCIUM S/P/B 8.7 8.4 - 10.5 MG/DL 02/05/2024 2:28 PM CDT [facility] BILIRUBIN TOTAL S/P/B 0.9 0.2 - 1.0 MG/DL 02/05/2024 2:28 PM T [facility] Comment: THIS ASSAY IS NOT RECOMMENDED FOR PATIENTS UNDERGOING TREATMENT WITH ELTROMBOPAG DUE TO THE POTENTIAL FOR FALSELY ELEVATED RESULTS. ALKALINE PHOSPHATASE S/P/B 105 45 - 115 U/L 02/05/2024 2:28 PM [facility] AST 27 15 - 37 U/L 02/05/2024 2:28 PM [facility] ALT 34 16 - 63 U/L 02/05/2024 2:28 PM [facility] TOTAL PROTEIN S/P/B 7.8 6.4 - 8.2 G/DL 02/05/2024 2:28 PM [facility] ALBUMIN S/P/B 3.3(L) 3.4 - 5.0 G/DL 02/05/2024 2:28 PM [facility] ANION GAP 9.0 5.0 - 15.0 MMOL/L 02/05/2024 2:28 PM [facility] OSMOLALITY (CALC) 287 MOSM/KG 024 2:28 PM [facility] Comment:REFERENCE RANGE NOT ESTABLISHED GFR ESTIMATE 52(L) >89 ML/MIN/1. 73 M2 02/05/2024 2:28 PM [facility] GFR NOTES GFR REFERENCE S: 02/05/2024 2:28 PM [facility] Comment: THE ESTIMATED GFR IS CALCULATED [...] CDT Mike Mckenzie MD LABORATORY Final Result [facility] [address] [place] [address], documented in this encounter Visit Diagnoses Diagnosis Nausea- Primary Nausea alone Vomiting Vomiting alone COPD exacerbation ([facility]) Obstructive chronic bronchitis with exacerbation Encounter for long-term (current) use of medications Encounter for long-term (current) use of other medications documented in this encounter Care Teams Ekg Technician Relationship Specialty Start Date End Date Mike Mckenzie MD [address] [place] [address] PCP - General INTERNAL MEDICINE 08/11/22 documented as of this encounter
--- OUTSIDE RECORDS SUMMARY | 2024-06-13 19:02 | XMS_ITS | Encounter Summary ---
Author Organization [facility] Address [address] [place] [address]. [place] [address] [place] [address] Care Team Providers Care Palliative Care Coordinator Name Role Phone Mike Duong MD Primary Care Provider [phone] Encounter Details Date Type Department Care Team (Late st Contact Info) Description 01/16/2023 10:59 AM CDT - 01/16/2023 11:59 PM CDT Hospital Encounter [facility] [address] [facility] [place] [address] Mike Duong MD [address] [place] [phone] Discharge Disposition: Home or Self Care (Routine [...] Date/Time Associated Diagnosis Comments XR WRIST RT MIN 3V Routine 01/16/2023 11 :59 AM CDT Fracture of right distal radius documented in this encounter Results * XR WRIST RT MIN 3V (01/16/2023 11:59 AM CDT) Anatomical Region Laterality Modality Wrist Radiographic Steph ging 01/16/2023 2:39 PM CDT Impressions 01/16/2023 2:41 PM CDT IMPRESSION: Healing or healed fracture distal right radius with radial shortening within all the and buttressing information between the lateral distal ulna and medial aspect of the proximal cortical surface of the lunate. Ordered By: MIKE DUONG Interpreted By: Christian Diamond MD, 01/16/2023 2:39 PM Narrative 01/16/2023 2:41 PM CDT 01/16/2023, 11:11 AM. HISTORY: Follow-up fracture. Pain and tingling in fingers. EXAM: AP, lateral and oblique views of the right wrist. Correlation to imaging 09/28/2022. FINDINGS: There is a healing fracture of the distal radius, predominantly a transverse distal metadiaphyseal fracture without remarkable change in position or alignment since study 09/28/2022. Question slight impaction along the fracture line. The radius appears shorter than the ulna and I question whether there is been some disruption of the normal alignment at the distal radioulnar joint. There is some early bone sclerosis in the medial proximal subcortical region of the lunate and in the opposing margin of the lateral aspect of the distal ulna. No new or acute fracture. No gross bone destruction. Procedure Note Christian Diamond MD - 01/16/2023 01/16/2023, 11:11 AM. HISTORY: Follow-up fracture. Pain and tingling in fingers. EXAM: AP, lateral and oblique views of the right wrist. Correlation toimaging 09/28/2022. FINDINGS: There is a healing fracture of the distal radius, predominantlya transverse distal metadiaphyseal fracture without remarkable change inposition or alignment since study 09/28/2022. Question slight impactionalong the fracture line. The radius appears shorter than the ulna and Iquestion whether there is been some disruption of the normal alignment atthe distal radioulnar joint. There is some early bone sclerosis in themedial proximal subcortical region of the lunate and in the opposingmargin of the lateral aspect of the distal ulna. No new or acute fracture.No gross bone destruction. IMPRESSION: Healing or healed fracture distal right radius with radial shorteningwithin all the and buttressing information between the lateral distal ulnaand medial aspect of the proximal cortical surface of the lunate. Ordered By: MIKE DUONG Interpreted By: Christian Diamond MD, 01/16/2023 2:39 PM Mike Duong MD GENERAL IMAGING Final Result documented in this encounter Visit Diagnoses Diagnosis Fracture of right distal radius Other closed fractures of distal end of radius (alone) documented in this encounter Care Teams Palliative Care Coordinator Relationship Specialty Start Date End Date Mike Duong MD [address] [place] [address] PCP - General INTERNAL MEDICINE 08/11/22 documented as of this encounter
--- OUTSIDE RECORDS SUMMARY | 2024-06-13 19:02 | XMS_ITS | Encounter Summary ---
Author Organization [facility] Address [address] [place] [address]. [place] [address] [place] [address] Care Team Providers Care Steel Die Printer Name Role Phone Mike Mckenzie MD Primary Care Provider [phone] Reason for Visit * Reason Comments Fracture CLOSED FRACTURE OF D ISTAL END OF RIGHT RADIUS Encounter Details Date Type Department Care Team (Latest Contact Info) Description 08/23/2022 2:30 PM MINE WIRER Office Visit [facility] [address] [place] [id number] Zain Meraz MD [address] [place] [address] Fracture (CLOSED FRACTURE OF DISTAL END OF RIGHT RADIUS) Social History Tobacco Use Types Packs/Day Years Used Date Smoking Tobacco: Smoker, Current Status Unknown Tobacco Cessation:Ready to Q uit: No; Counseling Given: No Sex and Gender Information Value Date Recorded Sex Assigned at Not on file Legal Sex Male 8:40 PM CDT Gender Identity Not on file Sexual Orientation Not on file COVID-19 Exposure Response Date Recorded In the last 10 days, have yo u been in contact with someone who was confirmed or suspected to have Coronavirus/COVID-19? No / Unsure 08/23/2022 2:25 PM MINE WIRER documented as of this encounter Last Filed Vital Signs Vital Sign Reading Time Taken Comments Blood Pressure - - Pulse - - Temperature - - Respiratory Rate - - Oxygen Saturation - - Inhaled Oxygen Concentration - - Weight 80.7 kg (178 lb) 08/23/2022 2:30 PM MINE WIRER Height 167.6 cm (5' 6 ) 08/23/2022 2:30 PM MINE WIRER Body Mass Index 28.73 08/23/2022 2:30 PM MINE WIRER documented in this encounter Progress Notes * Zain Meraz MD - 08/23/2022 2:30 PM CST Chief Complaint: Fracture (CLOSED FRACTURE OF DISTAL END OF RIGHT RADIUS) History of Present Illness: Javier Greene is a 82-year-old male who presents to the office for Fracture (CLOSED FRACTURE OF DISTAL END OF RIGHT RADIUS) DOI: 08/09/2022 Patient states things are going well. He notes some soreness and stiffness to digits of RIGHT hand but he is working on trying to move them more often. Cast appears in good, dry condition. He is taking Percocet for pain with moderate relief. He is not using any assistive devices. ROS: See HPI for pertinent positives Problem List: Patient Active Problem List Diagnosis ??? Other closed intra-articular fracture of distal end of right radius, initial encounter History: History reviewed. No pertinent past medical history. History reviewed. No pertinent surgical history. No family history on file. No family status information on file. Social History Socioeconomic History ??? Marital status: Tobacco Use ??? Smoking status: Smoker, Current Status Unknown Medications: Current Outpatient Medications: ??? Albuterol Sulfate, sensor, (PROAIR DIGIHALER) 108 (90 Base) MCG/ACT AEROSOL POWDER, BREATH ACTIVATED, Inhale 1 Inhaler into the lungs as needed., Disp: , Rfl: ??? atorvastatin (LIPITOR) 20 MG tablet, Take 20 mg by mouth daily., Disp: , Rfl: ??? diclofenac EC (VOLTAREN) 75 MG tablet, Take 75 mg by mouth 2 (two) times daily., Disp: , Rfl: ??? famotidine (PEPCID) 20 MG tablet, Take 20 mg by mouth 2 (two) times daily., Disp: , Rfl: ??? lisinopril (PRINIVIL) 20 MG tablet, Take 20 mg by mouth daily., Disp: , Rfl: ??? montelukast (SINGULAIR) 10 MG tablet, Take 10 mg by mouth nightly at bedtime., Disp: , Rfl: ??? omeprazole (PRILOSEC) 20 MG capsule, Take 20 mg by mouth daily., Disp: , Rfl: ??? oxyCODONE-acetaminophen (PERCOCET) 5-325 MG tablet, Take 1 tablet by mouth every 4 (four) hoursas needed. Indications: Chronic Pain, Disp: 30 tablet, Rfl: 0 ??? tamsulosin (FLOMAX) 0.4 MG Cap, Take 0.4 mg by mouth daily., Disp: , Rfl: ??? theophylline ER (UNIPHYL) 400 MG 24 hr tablet, Take 400 mg by mouth daily., Disp: , Rfl: ??? verapamil ER (VERELAN PM) 120 MG 24 hr capsule, Take 120 mg by mouth nightly at bedtime., Disp:, Rfl: Allergies Allergen Reactions ??? Aspirin Nausea Only ??? Methylprednisolone Nausea Only Objective: Body mass index is 28.73 kg/m??. Last Recorded Weight 08/23/22 1430 Weight: 80.7 kg (178 lb) Physical exam: Constitutional: Alert and in no acute distress. Neurological: The patient was oriented to person, place, and time. Eyes: The sclera and conjunctiva were normal ENT: Hearing was normal. Neck: The appearance of the neck was normal. Cardiovascular: Normal pulses. Pulmonary: No respiratory distress. Skin: No injuries or skin lesion. Musculoskeletal: The right arm cast is in good condition. His fingers are tobacco stained Results: X-ray demonstrates good alignment of his right distal radius fracture Assessment: Encounter Diagnose(s) ICD-10-CM ICD-9-CM SNOMED CT(R) 1. Other closed intra-articular fracture of distal end of right radius, initial encounter S52.571A 813.42 CLOSED FRACTURE OF DISTAL END OF RADIUS Plan: Patient is doing well at this point. He will return in a month for cast removal Follow up: Return in about 4 weeks (around 09/20/2022). ZAIN MERAZ MD WIRER documented in this encounter Plan of Treatment Not on file documented as of this encounter Visit Diagnoses Diagnosis Other closed intra-articular fracture of distal end of right radius, initial encounter- Primary documented in this encounter Care Teams Steel Die Printer Relationship Specialty Start Date End Date Mike Mckenzie MD [address] [place] [address] PCP - General INTERNAL MEDICINE 08/11/22 documented as of this encounter
--- OUTSIDE RECORDS SUMMARY | 2024-06-13 19:02 | XMS_ITS | Encounter Summary ---
Author Organization [facility] Address [address] [place] [address]. [place] [address] [place] [address] Care Team Providers Care Tanbark Laborer Name Role Phone Mike Mckenzie MD Primary Care Provider [phone] Encounter Details Date Type Department Care Team (Late st Contact Info) Description 09/21/2022 Orders Only [facility] [place] [phone] Zain Meraz MD [address] [place] [address] Social History Tobacco Use Types Packs/Day Years [...] Coronavirus/COVID-19? No / Unsure 08/23/2022 2:25 PM ORGANIZATIONAL EFFECTIVENESS CONSULTANT documented as of this encounter Plan of [...] encounter documented in this encounter Care Teams Tanbark Laborer Relationship Specialty Start Date End Date Mike Mckenzie MD [address] [place] [phone] PCP - General INTERNAL MEDICINE 08/11/22 documented as of this encounter
--- OUTSIDE RECORDS SUMMARY | 2024-06-13 19:02 | XMS_ITS | Encounter Summary ---
Author Organization [facility] Address [address] [place] [address]. [place] [address] [place] [address] Care Team Providers Care Vest Backer Name Role Phone Mike Mckenzie MD Primary Care Provider [phone] Encounter Details Date Type Department Care Team (Latest Contact Info) Description 08/23/2022 2:27 PM SAND SLINGER OPERATOR - 08/23/2022 11:59 PM SAND SLINGER OPERATOR Hospital Encounter [facility] [address] [place] [address] Zain Meraz MD [address] [place] [address] Discharge Disposition: Home or Self Care (Routine [...] Coronavirus/COVID-19? No / Unsure 08/23/2022 2:25 PM SAND SLINGER OPERATOR documented as of this encounter Medications at [...] total) by mouth 2 (two) times daily. lisinopril (PRINIVIL) 20 MG tablet Take 1 [...] mg total) by mouth nightly at bedtime. oxyCODONE-acetami nophen (PERCOCET) 5-325 MG tabletIndications :Chronic Pain Take 1 tablet by mouth every 4 (four) hours as needed. Indications: Chronic Pain 30 tablet 08/16/2022 09/28/2022 documented as of this encounter Plan of Treatment Not on file documented as of this encounter Procedures Procedure Name Priority Date/Time Associated Diagnosis Comments XR WRIST RT 2V Routine 08/23/2022 2:33 PM SAND SLINGER OPERATOR Other closed intra-articular fracture of distal end of right radius, initial encounter documented in this encounter Results * XR WRIST RT 2V (08/23/2022 2:33 PM SAND SLINGER OPERATOR) Anatomical Region Laterality Modality Wrist Radiographic Steph ging 08/23/2022 2:55 PM SAND SLINGER OPERATOR Impressions 08/23/2022 2:57 PM SAND SLINGER OPERATOR IMPRESSION: 1) Impacted distal right radius fracture with mild residual deformity similar to previous study. Ordered By: ZAIN MERAZ Interpreted By: Seymour Gaona MD, 08/23/2022 2:55 PM Narrative 08/23/2022 2:57 PM SAND SLINGER OPERATOR Examination: XR WRIST RT 2V Exam time: [...] encounter documented in this encounter Care Teams Vest Backer Relationship Specialty Start Date End Date Mike Mckenzie MD [address] [place] [address] PCP - General INTERNAL MEDICINE 08/11/22 documented as of this encounter
--- OUTSIDE RECORDS SUMMARY | 2024-06-13 19:02 | XMS_ITS | Encounter Summary ---
Author Organization [facility] Address [address] [place] [address]. [place], [place] [address] [place] [address] Care Team Providers Care Supervisor Warping Department Name Role Phone Mike Mckenzie MD Primary Care Provider [phone] Encounter Details Date Type Department Care Team (Latest Contact Info) Description 08/16/2022 Travel Social History Tobacco Use Types Packs/Day [...] Coronavirus/COVID-19? No / Unsure 08/16/2022 2:22 PM BUTTON RECLAIMER documented as of this encounter Plan of Treatment Not on file documented as of this encounter Visit Diagnoses Not on filedocumented in this encounter Care Teams Supervisor Warping Department Relationship Specialty Start Date End Date Mike Mckenzie MD [address] [place] [address] PCP - General INTERNAL MEDICINE 08/11/22 documented as of this encounter
--- OUTSIDE RECORDS SUMMARY | 2024-06-13 19:02 | XMS_ITS | Encounter Summary ---
Author Organization [facility] Address [address] [place] [address]. [place] [address] [place] [address] Care Team Providers Care Postage Machine Operator Name Role Phone Unavailable Primary Care Provider Unavailabl e Encounter Details Date Type Department Care Team (Late st Contact Info) Description 03/10/2010 Abstract [facility] [address] [place] [address] Mike Mckenzie MD [address] [place] [address] Social History Tobacco Use Types Packs/Day Years [...]
--- OUTSIDE RECORDS SUMMARY | 2024-06-13 19:02 | XMS_ITS | Encounter Summary ---
Author Organization [facility] Address [address] [place] [address]. [place] [address] [place] [address] Care Team Providers Care Furniture Restorer Name Role Phone Mike Mckenzie MD Primary Care Provider [phone] Reason for Visit * Reason Comments New Patient Wrist Pain DOI 08/09/2022 RIGHT Encounter Details Date Type Department Care Team (Latest Contact Info) Description 08/16/2022 2:30 PM INTERNATIONAL FREIGHT FORWARDER Office Visit [facility] [address], [facility] [address] [place] [id number] Zain Meraz MD [address] [place] [address] New Patient; Wrist Pain (DOI 08/09/2022 RIGHT ) Social History Tobacco Use Types Packs/Day Years [...] Coronavirus/COVID-19? No / Unsure 08/23/2022 2:25 PM INTERNATIONAL FREIGHT FORWARDER documented as of this encounter Last Filed Vital Signs Vital Sign Reading Time Taken Comments Blood Pressure - - Pulse - - Temperature - - Respiratory Rate - - Oxygen Saturation - - Inhaled Oxygen Concentration - - Weight 80.7 kg (178 lb) 08/16/2022 2:36 PM INTERNATIONAL FREIGHT FORWARDER Height 167.6 cm (5' 6 ) 08/16/2022 2:36 PM INTERNATIONAL FREIGHT FORWARDER Body Mass Index 28.73 08/16/2022 2:36 PM INTERNATIONAL FREIGHT FORWARDER documented in this encounter Progress Notes * Zain Meraz MD - 08/16/2022 2:30 PM CST Chief Complaint: New Patient and Wrist Pain (DOI 08/09/2022 RIGHT ) History of Present Illness: Javier Greene is a 82-year-old male who presents to the office for New Patient and Wrist Pain (DOI 08/09/2022 RIGHT ) Patient comes in the office today with a friend for injury to the RIGHT wrist. He states last Sunday he fell when working and cleaning his garden. He is in a sling and a splint. He states went to [facility] on 08/09/2022. He states went to the primary Dr. Next day on 08/10/2022. He states has swelling. He states he has throbbing pain in the RIGHT wrist aspect and the forearm. He states has numbness and tingling in the RIGHT fingers. He states unsure of bruising. He denies use of any assistivedevices. He is LEFT hand dominant. He states does use both quite a bit. He denies any prior surgeryto the RIGHT wrist. ROS: See HPI for pertinent positives Problem List: Patient Active Problem List Diagnosis ??? Other closed intra-articular fracture of distal end of right radius, initial encounter History: No past medical history on file. No past surgical history on file. No family history on file. No family [...] (two) times daily., Disp: , Rfl: ??? HYDROcodone-acetaminophen (NORCO) 10-325 MG tablet, Take 1 tablet by mouth every 4 (four) hoursas needed for Pain., Disp: , Rfl: ??? lisinopril (PRINIVIL) 20 MG tablet, Take 20 mg by mouth daily., Disp: , Rfl: ??? montelukast (SINGULAIR) 10 MG tablet, Take 10 mg by mouth nightly at bedtime., Disp: , Rfl: ??? omeprazole (PRILOSEC) 20 MG capsule, Take 20 mg by mouth daily., Disp: , Rfl: ??? tamsulosin (FLOMAX) 0.4 MG Cap, Take [...] index is 28.73 kg/m??. Last Recorded Weight 08/16/22 1436 Weight: 80.7 kg (178 lb) Physical exam: Constitutional: Alert and in no acute distress. Neurological: The patient was oriented to person, place, and time. Eyes: The sclera and conjunctiva were normal ENT: Hearing was normal. Neck: The appearance of the neck was normal. Cardiovascular: Normal pulses. Pulmonary: No respiratory distress. Skin: No injuries or skin lesion. Musculoskeletal: Right wrist was taken out of the splint and he has mild swelling. He reports decreased sensation in the thumb and little finger. Capillary refill is normal. Typical tenderness and stiffness Results: X-ray was reviewed demonstrating a well aligned right distal radius intra- articular fracture Assessment: Encounter Diagnose(s) ICD-10-CM ICD-9-CM SNOMED CT(R) 1. Other closed intra-articular fracture of distal end of right radius, initial encounter S52.571A 813.42 CLOSED FRACTURE OF DISTAL END OF RADIUS Procedure: Procedure: Cast application Material: 3 inch Fiberglass using 2 rolls Type: Short arm cast. Patient Status: neurovascular exam after splint/cast application was unchanged. Follow up: Javier Greene was instructed to follow up in 1 week. Plan: I placed the patient in a short arm cast with good molding. He indicates Blaine has not been effective for pain control so I switched him to Percocet. I have reviewed activity restrictions and recommended smoking cessation. He will return in a week for x-ray Follow up: Return in about 1 week (around 08/23/2022). ZAIN MERAZ MD RNATIONAL FREIGHT FORWARDER documented in this encounter Plan of Treatment Not on file documented as of this encounter Visit Diagnoses Diagnosis Other closed intra-articular fracture of distal end of right radius, initial encounter- Primary documented in this encounter Care Teams Furniture Restorer Relationship Specialty Start Date End Date Mike Mckenzie MD [address] [place] [address] PCP - General INTERNAL MEDICINE 08/11/22 documented as of this encounter
--- OUTSIDE RECORDS SUMMARY | 2024-06-13 19:02 | XMS_ITS | Encounter Summary ---
Author Organization [facility] Address [address] [place] [address]. [place] [address] [place] [address] Care Team Providers Care Mud Tank Operator Name Role Phone Unavailable Primary Care Provider Unavailabl e Encounter Details Date Type Department Care Team (Late st Contact Info) Description 04/09/2010 Abstract [facility] [address] [place] [address] Mike Mckenzie MD [address] [place] [address] Social History Tobacco Use Types [...] as of this encounter Visit Diagnoses Diagnosis Hematuria Hematuria, unspecified documented in this encounter
--- OUTSIDE RECORDS SUMMARY | 2024-06-13 19:02 | XMS_ITS | Encounter Summary ---
Author Organization [facility] Address [address] [place] [address]. [place] [address] [place] [address] Care Team Providers Care Tire Fabric Inspector Name Role Phone Mike Mckenzie MD Primary Care Provider [phone] Encounter Details Date Type Department Care Team (Late st Contact Info) Description 10/02/2022 Orders Only [facility] [address] [address] Chery Newton, [facility] [address] [place] [address] [place] [address] Social History Tobacco Use Types Packs/Day Years [...] PM CDT documented as of this encounter Plan of Treatment Not on file documented as of this encounter Visit Diagnoses Diagnosis Other closed intra-articular fracture of distal end of right radius with delayed healing, subsequent encounter- Primary documented in this encounter Care Teams Tire Fabric Inspector Relationship Specialty Start Date End Date Mike Mckenzie MD [address] [place] [id number] PCP - General INTERNAL MEDICINE 08/11/22 documented as of this encounter
--- OUTSIDE RECORDS SUMMARY | 2024-06-13 19:02 | XMS_ITS | Encounter Summary ---
Author Organization [facility] Address [address] [place] [address]. [place] [address] [place] [address] Care Team Providers Care Loss Control Consultant Name Role Phone Mike Duong MD Primary Care Provider [phone] Encounter Details Date Type Department Care Team (Late st Contact Info) Description 02/05/2024 1:09 PM CDT - 02/05/2024 11:59 PM CDT Hospital Encounter [facility] [address] [facility] [place] [address] Mike Duong MD [address] [place] [id number] Discharge Disposition: Home or Self Care (Routine [...] Name Priority Date/Time Associated Diagnosis Comments XR CHEST PA+LAT Routine 02/05/2024 1:34 PM CDT Nausea Vomiting COPD (chronic obstructive pulmonary disease) ([facility]) documented in this encounter Results * XR CHEST PA+LAT (02/05/2024 1:34 PM CDT) Anatomical Region Laterality Modality Chest Radiographic Steph ging 02/05/2024 1:40 PM CDT Impressions 02/05/2024 1:47 PM CDT IMPRESSION: 1. No acute cardiopulmonary process identified. 2. Additional indeterminate findings as described. Follow-up with contrast- enhanced CT of the chest is recommended for further assessment. See text. Ordered By: MIKE DUONG Interpreted By: Jc Pickett MD, 02/05/2024 1:40 PM Narrative 02/05/2024 1:47 PM CDT Examination: Two-view chest Exam time: 1305 hours. Clinical history: COPD. Nausea and vomiting. Smoker. Comparison: ??None. Technique: PA and lateral views Findings: The heart is within normal limits for size. Pulmonary vascularity is within normal limits. There is prominence of the interstitial markings, suggesting chronic interstitial disease. No confluent infiltrates or effusions are identified. There is a faint nodular opacity superimposing the right second anterior rib on the PA view. On the lateral view, there is a rounded opacity projecting in the infrahilar region that shows no definite correlate on the PA view. Follow-up with contrast- enhanced CT of the chest is recommended for further assessment. The bony thorax is unremarkable for age and stature. Procedure Note Jc Pickett MD - 02/05/2024 Examination: Two-view chest Exam time: 1305 hours. Clinical history: COPD. Nausea and vomiting. Smoker. Comparison: None. Technique: PA and lateral views Findings: The heart is within normal limits for size. Pulmonaryvascularity is within normal limits. There is prominence of theinterstitial markings, suggesting chronic interstitial disease. Noconfluent infiltrates or effusions are identified. There is a faintnodular opacity superimposing the right second anterior rib on the PAview. On the lateral view, there is a rounded opacity projecting in theinfrahilar region that shows no definite correlate on the PA view.Follow-up with contrast-enhanced CT of the chest is recommended forfurther assessment. The bony thorax is unremarkable for age and stature. IMPRESSION: 1. No acute cardiopulmonary process identified. 2. Additional indeterminate findings as described. Follow-up withcontrast- enhanced CT of the chest is recommended for further assessment.See text. Ordered By: MIKE DUONG Interpreted By: Jc Pickett MD, 02/05/2024 1:40 PM Mike Duong MD GENERAL IMAGING Final Result documented in this encounter Visit Diagnoses Diagnosis Nausea Nausea alone Vomiting Vomiting alone COPD (chronic obstructive pulmonary disease) (CMS/HCC [facility]/HCC) Chronic airway obstruction, not elsewhere classified documented in this encounter Care Teams Loss Control Consultant Relationship Specialty Start Date End Date Mike Duong MD [address] [place] [address] PCP - General INTERNAL MEDICINE 08/11/22 documented as of this encounter
--- OUTSIDE RECORDS SUMMARY | 2024-06-13 19:02 | XMS_ITS | Encounter Summary ---
Author Organization [facility] Address [address] [place] [address]. [place], [place] [address] [place] [address] Care Team Providers Care Airport Engineer Name Role Phone Mike Mckenzie MD Primary Care Provider [phone] Encounter Details Date Type Department Care Team (Latest Contact Info) Description 09/28/2022 Travel Social History Tobacco Use Types Packs/Day [...] on filedocumented in this encounter Care Teams Airport Engineer Relationship Specialty Start Date End Date Mike Mckenzie MD [address] [place] [phone] PCP - General INTERNAL MEDICINE 08/11/22 documented as of this encounter
--- OUTSIDE RECORDS SUMMARY | 2024-06-13 19:02 | XMS_ITS | Encounter Summary ---
Author Organization [facility] Address [address] [place] [address]. [place] [address] [place] [address] Care Team Providers Care Per Diem Interpreter Name Role Phone Mike Mckenzie MD Primary Care Provider [phone] Encounter Details Date Type Department Care Team (Latest Contact Info) Description 08/16/2022 2:25 PM CNC SUPERVISOR - 08/16/2022 11:59 PM CNC SUPERVISOR Hospital Encounter [facility] [address] [place] [address] Zain Meraz MD [address] [place] [address] Discharge Disposition: Home or Self Care (Routine [...] Coronavirus/COVID-19? No / Unsure 08/16/2022 2:22 PM CNC SUPERVISOR documented as of this encounter Medications at [...] mg total) by mouth nightly at bedtime. HYDROcodone-aceta minophen (NORCO) 10-325 MG tablet Take 1 tablet by mouth every 4 (four) hours as needed for Pain. 08/23/2022 oxyCODONE-acetami nophen (PERCOCET) 5-325 MG tabletIndications :Chronic Pain Take 1 tablet by mouth every 4 (four) hours as needed. Indications: Chronic Pain 30 tablet 08/16/2022 09/28/2022 documented as of this encounter Plan of Treatment Not on file documented as of this encounter Procedures Procedure Name Priority Date/Time Associated Diagnosis Comments XR WRIST RT 2V Routine 08/16/2022 2:57 PM CNC SUPERVISOR Wrist pain, acute, right documented in this encounter Results * XR WRIST RT 2V (08/16/2022 2:57 PM CNC SUPERVISOR) Anatomical Region Laterality Modality Wrist Radiographic Steph ging 08/17/2022 8:43 AM CNC SUPERVISOR Impressions 08/17/2022 8:45 AM CNC SUPERVISOR IMPRESSION: Stable alignment of distal radial fracture following splint application. Ordered By: ZAIN MERAZ Interpreted By: Jc Pickett MD, 08/17/2022 8:43 AM Narrative 08/17/2022 8:45 AM CNC SUPERVISOR Examination: Right wrist. Exam time: 1407 hours. Clinical history: Fracture follow-up. Comparison: 08/09/2022 ([facility]). Technique: PA and lateral views. Findings: [...] hours. Clinical history: Fracture follow-up. Comparison: 08/09/2022 ([facility]). Technique: PA and lateral views. Findings: [...] encounter Visit Diagnoses Diagnosis Wrist pain, acute, right documented in this encounter Care Teams Per Diem Interpreter Relationship Specialty Start Date End Date Mike Mckenzie MD [address] [place] [address] PCP - General INTERNAL MEDICINE 08/11/22 documented as of this encounter
--- OUTSIDE RECORDS SUMMARY | 2024-06-13 19:02 | XMS_ITS | Encounter Summary ---
Author Organization [facility] Address [address] [place] [address]. [place] [address] [place] [address] Care Team Providers Care Book Sorter Name Role Phone Mike Mckenzie MD Primary Care Provider [phone] Reason for Visit * Reason Comments Fracture DOI: 08/09/2022 RIGH T distal radius Encounter Details Date Type Department Care Team (Late st Contact Info) Description 09/28/2022 2:45 PM CDT Office Visit [facility] [address] [place] [address] Chery Newton, [facility] [address] [place] [address] [place] [address] Fracture (DOI: 08/09/2022 RIGHT distal radius) Social History Tobacco Use Types Packs/Day Years Used Date Smoking Tobacco: Every Day Cigarettes Smokeless Tobacco: Never Tobacco Cessation:Ready to Q uit: Not Asked; Counseling Given: Not Answered Alcohol Use Standard Drinks/Week Comments Never 0 [...] PM CDT documented as of this encounter Last Filed Vital Signs Vital Sign Reading Time Taken Comments Blood Pressure - - Pulse - - Temperature - - Respiratory Rate - - Oxygen Saturation - - Inhaled Oxygen Concentration - - Weight 80.7 kg (178 lb) 09/28/2022 2:38 PM CDT Height 167.6 cm (5' 6 ) 09/28/2022 2:38 PM CDT Body Mass Index 28.73 09/28/2022 2:38 PM CDT documented in this encounter Progress Notes * Chery Newton, [employer] G[employer]VEL PLANT OPERATOR-BC - 09/28/2022 2:45 PM CDT Chief Complaint: Fracture (DOI: 08/09/2022 RIGHT distal radius) History of Present Illness: Javier Greene is a 82-year-old male who presents to the office for Fracture (DOI: 08/09/2022 RIGHT distal radius) Patient comes in to clinic today for cast removal and follow up of RIGHT wrist fracture. He reportspain in ulnar dorsal wrist and occasionally in all fingers. He is taking pain medication he gets from PCP but states he is out ([place]). He also reports stiffness in RIGHT hand and arm. He is not using any ambulatory aid. Cast to right upper extremity is in poor condition. Cast was removed without difficulty. Skin intact without abrasions, redness or wounds. Patient tolerated removal well. Procedure performed by Maylin PATEL. Previous HPI:08/23/2022 Patient states things are going well. He [...] of right radius with delayed healing, subsequent encounter History: Past Medical History: Diagnosis Date ??? GERD (gastroesophageal reflux disease) ??? High cholesterol ??? Hypertension ??? Radius and ulna distal fracture 08/09/2022 Past Surgical History: Procedure Laterality Date ??? COLONOSCOPY, FLEXIBLE; PROXIMAL TO SPLENIC FLEXURE; WITH ABLATION OF TUMOR(S), POLYP(S), OR OTHER LESION(S) NOT AMENABLE TO REMOVAL BY HOT BIOPSY FORCEPS, BIPOLAR CAUTERY OR SNARE TEHNIQUE polyp removal ??? REMOVAL GALLBLADDER ??? SHOULDER ARTHROSCOPY/SURGERY Right No family history on file. No family status information on file. Social History Socioeconomic History ??? Marital status: Tobacco Use ??? Smoking status: Every Day Packs/day: 2.00 Types: Cigarettes ??? Smokeless tobacco: Never Substance and Sexual Activity ??? Alcohol use: Never ??? Drug use: Never Medications: Current Outpatient Medications: ??? Albuterol Sulfate, sensor, (PROAIR DIGIHALER) 108 (90 Base) MCG/ACT AEROSOL POWDER, BREATH ACTIVATED, Inhale 1 Inhaler into the lungs as needed., Disp: , Rfl: ??? atorvastatin (LIPITOR) 20 MG tablet, Take 1 tablet (20 mg total) by mouth daily., Disp: , Rfl: ??? diclofenac EC (VOLTAREN) 75 MG tablet, Take 1 tablet (75 mg total) by mouth 2 (two) times daily., Disp: , Rfl: ??? famotidine (PEPCID) 20 MG tablet, Take 1 tablet (20 mg total) by mouth 2 (two) times daily., Disp: , Rfl: ??? HYDROcodone-acetaminophen (NORCO) 10-325 MG tablet, , Disp: , Rfl: ??? lisinopril (PRINIVIL) 20 MG tablet, Take 1 tablet (20 mg total) by mouth daily., Disp: , Rfl: ??? montelukast (SINGULAIR) 10 MG tablet, Take 1 tablet (10 mg total) by mouth nightly at bedtime.,Disp: , Rfl: ??? omeprazole (PRILOSEC) 20 MG capsule, Take 1 capsule (20 mg total) by mouth daily., Disp: , Rfl: ??? tamsulosin (FLOMAX) 0.4 MG Cap, Take 1 capsule (0.4 mg total) by mouth daily., Disp: , Rfl: ??? theophylline ER (UNIPHYL) 400 MG 24 hr tablet, Take 1 tablet (400 mg total) by mouth daily., Disp: , Rfl: ??? verapamil ER (VERELAN PM) 120 MG 24 hr capsule, Take 1 capsule (120 mg total) by mouth nightly at bedtime., Disp: , Rfl: Allergies Allergen Reactions ??? Aspirin Nausea Only ??? Methylprednisolone Nausea Only Objective: Body mass index is 28.73 kg/m??. Last Recorded Weight 09/28/22 1438 Weight: 80.7 kg (178 lb) Physical exam: Constitutional: Alert and in no acute distress. Neurological: The patient was oriented to person, place, and time. Eyes: The sclera and conjunctiva were normal ENT: Hearing was normal. Neck: The appearance of the neck was normal. Cardiovascular: Normal pulses. Pulmonary: No respiratory distress. Skin: No injuries or skin lesion. Musculoskeletal: EXAM of RIGHT wrist today reveals diffuse tenderness with palpation,stiff wrist range of motion, unable to make a fist, good capillary refill, nicotine stained finger tips, palpable radial pulse. Results: XRAY of RIGHT wrist today reveals progressive healing of impacted distal radius fracture in stable alignment with no new bony injury or dislocation. Assessment: Encounter Diagnose(s) ICD-10-CM ICD-9-CM SNOMED CT(R) 1. Other closed intra-articular fracture of distal end of right radius with delayed healing, subsequent encounter S52.571G V54.12 CLOSED FRACTURE OF DISTAL END OF RADIUS Plan: Reviewed imaging with patient in the office today. He is showing signs of healing but has diffuse tenderness. He was fitted and applied with a Velcro brace which he may remove for showers and dressing as well as working on range of motion. He will follow up in 2 weeks for reevaluation and anticipate getting him started in physical therapy at that time. Follow up: Return in about 2 weeks (around 10/12/2022) for Visit with Imaging (RIGHT wrist). IMANI RYEES documented in this encounter Plan of Treatment Not on file documented as of this encounter Visit Diagnoses Diagnosis Other closed intra-articular fracture of distal end of right radius with delayed healing, subsequent encounter- Primary documented in this encounter Care Teams Book Sorter Relationship Specialty Start Date End Date Mike Mckenzie MD [address] [place] [address] PCP - General INTERNAL MEDICINE 08/11/22 documented as of this encounter
--- OUTSIDE RECORDS SUMMARY | 2024-06-13 19:03 | XMS_ITS | Encounter Summary ---
Author Organization [facility] Address [address] [place] [address]. [place] [address] [place] [address] Care Team Providers Care Front Maker Name Role Phone Unavailable Primary Care Provider Unavailabl e Encounter Details Date Type Department Care Team (Late st Contact Info) Description 03/09/2006 Abstract [facility] [address] [place] [address] , Emily Quan MD Social History Tobacco Use Types Packs/Day Years Used Date Smoking Tobacco: Smoker, Current Status Unknown Sex and Gender Information Value Date Recorded Sex Assigned at Not on file Legal Sex Male 8:40 PM CDT Gender Identity Not on file Sexual Orientation Not on file documented as of this encounter Last Filed Vital Signs Vital Sign Reading Time Taken Comments Blood Pressure 132/80 03/09/2006 7:53 AM CDT Pulse 60 03/09/2006 7:53 AM CDT Temperature - - Respiratory Rate 20 03/09/2006 7:53 AM CDT Oxygen Saturation - - Inhaled Oxygen Concentration - - Weight 80.7 kg (178 lb) 03/09/2006 7:53 AM CDT Height 167.6 cm (5' 6 ) 03/09/2006 7:53 AM CDT Body Mass Index 28.73 03/09/2006 7:53 AM CDT documented in this encounter Plan of Treatment Not on file documented as of this encounter Visit Diagnoses Not on filedocumented in this encounter
--- OUTSIDE RECORDS SUMMARY | 2024-06-13 19:06 | XMS_ITS | Encounter Summary ---
Author Organization [facility] Care Team Providers Care Broiler Chef Or Cook Name Role Phone Mike Mckenzie MD Primary Care Provider [phone] Encounter Details Date Type Department Care Team (Latest Contact Info) Description 03/03/2022 Travel Social History Tobacco Use Types Packs/Day Years Used Date Smoking Tobacco: Every Day Cigarettes Smokeless Tobacco: Never Alcohol Use Standard Drinks/Week Comments Never 0 (1 standard drink = 0.6 oz pur e alcohol) Sex and Gender Information Value Date Recorded Sex Assigned at Not on file Legal Sex Male 12:18 AM CDT Gender Identity Not on file Sexual Orientation Not on file COVID-19 Exposure Response Date Recorded In the last 10 days, have yo u been in contact with someone who was confirmed or suspected to have Coronavirus/COVID-19? No / Unsure 03/03/2022 10:06 AM CDT documented as of this encounter Plan of Treatment Not on file documented as of this encounter Visit Diagnoses Not on filedocumented in this encounter Care Teams Broiler Chef Or Cook Relationship Specialty Start Date End Date Mike Mckenzie MD [address] [place] [address] PCP - General Internal Medicine 11/30/21 documented as of this encounter
--- OUTSIDE RECORDS SUMMARY | 2024-06-13 19:06 | XMS_ITS | Clinical Summary ---
Author Organization [facility] Address [address] [place] [address] Phone Care Team Providers Care Book Salesman Name Role Phone Mike Mckenzie MD Primary Care Provider [phone] Levi Nguyễn MD Unavailable [phone] Allergies Active Allergy Reactions Criticality Noted Date Comments Aspirin Nausea 12/01/2021 Methylprednisolone Nausea 12/01/2021 Medications lisinopril (PRINIVIL, ZESTRIL) 20 MG Tablet Take 20 mg by mouth daily. Active theophylline (ANKITA-24) 400 MG CAPSULE SR 24 HR Take 400 mg by mouth daily. Active montelukast (SINGULAIR) 10 MG Tablet Take 10 mg by mouth every evening. Active atorvastatin (LIPITOR) 20 MG Tablet Take 20 mg by mouth daily. Active carbamide peroxide (DEBROX) 6.5 % Solution Place 5 Drops in affected ear(s) 2 times daily. Active verapamil (CALAN,ISOPTIN) 120 MG Tablet Take 120 mg by mouth 3 times daily. Active HYDROcodone-daryl taminophen (NORCO) 10-325 MG Tablet Take 1 Tablet by mouth every 6 hours as needed. Active diclofenac (VOLTAREN) 75 MG Tablet Delayed Response Take 75 mg by mouth 3 times daily. Active Albuterol Sulfate, sensor, (ProAir Digihaler) 108 (90 Base) MCG/ACT AEROSOL POWDER, BREATH ACTIVATED take by inhalation. Active famotidine (PEPCID) 20 MG Tablet Take 20 mg by mouth 2 times daily. Active DULoxetine (CYMBALTA) [address] Particles Take 20 mg by mouth nightly. Active tamsulosin (FLOMAX) 0.4 MG Capsule 02/28/2022 Active levoFLOXacin (LEVAQUIN) 750 MG Tablet 02/20/2022 Active predniSONE (DELTASONE) 50 MG Tablet 02/20/2022 Active theophylline (THEOCHRON) 400 MG TABLET SR 24 HR 12/22/2021 Active cephALEXin (KEFLEX) 500 MG Capsule 03/04/2022 Active ondansetron (ZOFRAN) 4 MG Tablet 03/15/2022 Active omeprazole (PriLOSEC) 20 MG CAPSULE DELAYED RELEASE 03/15/2022 Act benita Active Problems Problem Noted Date Diagnosed Date COPD (chronic obstructive pulmonary disease) 02/2022 Primary hypertension 12/01/2021 Blurring of visual image 12/01/2021 Lower back pain 12/01/2021 Hypercholesteremia 12/01/2021 GERD (gastroesophageal reflux disease) 2 Immunizations Immunization Administration Dates Next Due Covid-19, Mrna, Lnp-s, Pf, 1 00 Mcg Or 50 Mcg Dose (MODERNA) 09/24/2020,08/27/2020 Influenza Vaccine, Quadrivalent, PF 03/26,04/02/2020,05/09/2019,2015 Influenza, Injectable, Quadrivalent 04/19/2018,1 07/06/2013 Influenza, Seasonal, Injecta ble, Undefined 02/27/2017,04/05/2015 Influenza, high-dose, trivalent, PF 04/15/2013,1 Pneumococcal Vaccine - 13 Valent 05/03/2016,03/25 Pneumococcal Vaccine Adult - 23 Valent 04/12/2015 Family History Medical History Relation Name Comments Other-comment Brother meningitis at age 11 No Known Problems Father Dementia Mother Heart Disease Mother Coronary Artery Disease Sister Relation Name Status Comments Brother Father Mother Sister Social History Tobacco Use Types Packs/Day Years Used Date Smoking Tobacco: Every Day Cigarettes Smokeless Tobacco: Never Tobacco Cessation:Ready to Q uit: No; Counseling Given: Yes Alcohol Use Standard Drinks/Week Comments Never 0 (1 standard drink = 0.6 oz pur e alcohol) Sex and Gender Information Value Date Recorded Sex Assigned at Not on file Legal Sex Male 12:18 AM CDT Gender Identity Not on file Sexual Orientation Not on file Last Filed Vital Signs Vital Sign Reading Time Taken Comments Blood Pressure 118/76 03/17/2022 9:59 AM CDT Pulse 79 03/17/2022 9:59 AM CDT Temperature 36.6 ??C (97.8 ??F) 03/17/2022 9:59 AM CD T Respiratory Rate 20 03/17/2022 9:59 AM CDT Oxygen Saturation 96% 03/17/2022 9:59 AM CDT Inhaled Oxygen Concentration - - Weight 83.9 kg (185 lb) 03/17/2022 9:59 AM CDT Height 165.1 cm (5' 5 ) 03/17/2022 9:59 AM CDT Body Mass Index 30.79 03/17/2022 9:59 AM CDT Plan of Treatment Health Maintenance Due Date Last Done Comments Hepatitis C Virus (HCV) Screening 1940 TdaP Immunization 1940 Zoster Immunization (1 of 2) 1991 Respiratory Syncytial Virus (RSV) Immunization (Adult) (1 - 1-dose 75+ series) 02/19/2016 Influenza Immunization (#1) 02/24/202403/26, 04/02/2020, 05/09/2019, Additional history exists SARS-COV-2 Immunization ( season) 2024 09/24/2020, 08/27/2020 Pneumococcal Immunization (50+ years) Completed 05/03/2016, 04/12/2015, 04/06/2008 Hepatitis B Immunization Aged Out No longer eligible based on patient's age to complete this topic Meningococcal Immunization (ACWY) Aged Out No longer eligible based on patient's age to complete this topic Rotavirus Immunization Aged Out No lo nger eligible based on patient's age to complete this topic Insurance MEDICARE C [facility] [place] [id number] Advance Directives Documents on File Type Date Recorded Patient Director Targeted Marketing Expl anation Other Advance Directive 03/20/2022 9:52 AM PROCEDUR CONSENT/URO Care Teams Book Salesman Relationship Specialty Start Date End Date Mike Mckenzie MD [address] [place] [address] PCP - General Internal Medicine 11/30/21 Levi Nguyễn MD [address] [address] Consulting Physician Urology 03/15/22
--- OUTSIDE RECORDS SUMMARY | 2024-06-13 19:06 | XMS_ITS | Encounter Summary ---
Author Organization [facility] Care Team Providers Care Roll Forming Machine Operator Name Role Phone Mike Mckenzie MD Primary Care Provider [phone] Levi Nguyễn MD Unavailable [phone] Encounter Details Date Type Department Care Team (Latest Contact Info) Description 03/17/2022 Travel Social History Tobacco Use Types Packs/Day [...] suspected to have Coronavirus/COVID-19? No / Unsure 03/17/2022 9:47 AM CDT documented as of this encounter Plan of Treatment Not on file documented as of this encounter Visit Diagnoses Not on filedocumented in this encounter Care Teams Roll Forming Machine Operator Relationship Specialty Start Date End Date Mike Mckenzie MD [address] [place] [address] PCP - General Internal Medicine 11/30/21 Levi Nguyễn MD [address] [address] Consulting Physician Urology 03/15/22 documented as of this encounter
--- OUTSIDE RECORDS SUMMARY | 2024-06-13 19:06 | XMS_ITS | Encounter Summary ---
Author Organization [facility] Address [address] [place] [address] Phone Care Team Providers Care Associate Professor Of Literature Name Role Phone Mike Mckenzie MD Primary Care Provider [phone] Levi Nguyễn MD Unavailable [phone] Reason for Visit * Reason Comments Blood in Urine Cystoscopy Encounter Details Date Type Department Care Team (Late st Contact Info) Description 03/17/2022 10:00 AM CDT Procedure Visit [facility] [address] [place] [address] Levi Nguyễn MD [address] [facility] [address] [place] [address] Gross hematuria (Primary Dx) Discharge Disposition: Discharged to home or Selfcare Social History Tobacco Use Types Packs/Day Years [...] AM CDT documented as of this encounter Last [...] Mass Index 30.79 03/17/2022 9:59 AM CDT documented in this encounter Progress Notes * Levi Nguyễn MD - 03/17/2022 10:00 AM CDT Reason for Visit: hematuria Interval History: Javier Greene is a 82 y.o. male is here today for the ongoing management of Hematuria. The patient was noted to have hematuria. He did undergo cystoscopy today which basically showsa small bladder stone, enlarged prostate but no bladder tumors. He has not completed CT urogram. Also found to have a PSA in the 5 region however, we discussed that for a man in his 80s is may be acce ptable and planned for repeat PSA which has been completed.. The complete REVIEW OF SYSTEMS, MEDICATION LIST and DRUG ALLERGIES, PAST MEDICAL HISTORY, FAMILY MEDICAL HISTORY and SOCIAL HISTORY are documented in detail were reviewed. The patient was asked to review all abnormal responses not pertinent to today's visit with their primary care physician. Assessment/Plan: This is a 82 y.o. male with Hematuria, PSA in the 5.5 region. At this point will plan for the following: - CT urogram for completion of hematuria workup - Repeat PSA Total time spent on this encounter on this date of service, including pre-visit review of separately obtained history, [id number] interaction performing medically appropriate physical exam, patientcounseling/education, interpretation of diagnostic results, care coordination and documentation was21 minutes. documented in this encounter Procedure Notes * Levi Nguyễn MD - 03/17/2022 10:00 AM CDTAssociated Order(s): CYSTOURETHROSCOPY Cystoscopy Procedure Note Date of Visit: 03/17/2022 Cystourethroscopy Javier Greene is a 82 y.o. male who presents for cystoscopy. Indication(s): Hematuria. Verbal and written consent was obtained. Risks including infection, bleeding, pain, urethral/bladder injury, non-diagnostic study, UTI discussed with patient who consents toprocedure. Urinalysis: Urine dipstick shows negative nitrites. Procedure: The patient was positioned in the supine position on the procedure table. The patient was then placed in the supine position with all pressure points padded again. The lower abdomen, perineum, urethra were prepped in the usual fashion. Local anesthesia with 1% lidocaine jelly was administered transurethrally. A well lubricated 16 [place] flexible cystoscope was introduced transurethrally. At the end of the procedure, the patient was Already on antibiotics. Findings: Urethra: No strictures, lesions, or stones Bladder: No, tumors, lesions. Moderatetrabeculations, diverticuli. Bilateral UO in orthotopic position with clear efflux. There is 1 stone that is approximately 5 mm in the dependent portion of the bladder. Moderate trabeculations noted. Prostate: 5.5cm channel, Bilobar obstructive. medium median lobe. The patient tolerated the procedure well. Specimen sent: None Plan: See progress note documented in this encounter Plan of Treatment Scheduled Orders Name Type Priority Associated Diagnoses Orde r Schedule POCT UA AUTOMATED W/O MICRO Point of Care Testing (manual) Routine Gross hematuria Ordered: 03/17/2022 documented as of this encounter Procedures Procedure Name Priority Date/Time Associated Diagnosis Comments CYSTOURETHROSCOPY Routine 03/17/2022 10: 00 AM CDT Gross hematuria documented in this encounter Results * CYSTOURETHROSCOPY (03/17/2022 10:00 AM CDT) Narrative Levi Nguyễn MD - 03/17/2022 10:00 AM CDT Levi Nguyễn MD ? 03/17/2022 10:34 AM Cystoscopy Procedure Note Date of Visit: 03/17/2022 Cystourethroscopy Javier Greene is a 82 y.o. male who presents for cystoscopy. Indication(s): ?? Hematuria. Verbal and written consent was obtained. Risks including infection, bleeding, pain, urethral/bladder injury, non-diagnostic study, UTI discussed with patient who consents to procedure. Urinalysis: Urine dipstick shows negative nitrites. Procedure: ??The patient was positioned in the supine position on the procedure table. ??The patient was then placed in the ??supine position with all pressure points padded again. ??The lower abdomen, perineum, urethra were prepped in the usual fashion. Local anesthesia with 1% lidocaine jelly was administered transurethrally. ??A well lubricated 16 [place] flexible cystoscope was introduced transurethrally. ??At the end of the procedure, the patient was ?Already on antibiotics. Findings: Urethra: No strictures, lesions, or stones Bladder: No, tumors, lesions. ?? Moderatetrabeculations, diverticuli. Bilateral UO in orthotopic position with clear efflux. ??There is 1 stone that is approximately 5 mm in the dependent portion of the bladder. ??Moderate trabeculations noted. Prostate: ??5.5cm channel, ??Bilobar obstructive. ??medium median lobe. The patient tolerated the procedure well. Specimen sent: None Plan: ??See progress note Levi Parra MD [place] - SURGERY Final Result documented in this encounter Visit Diagnoses Diagnosis Gross hematuria- Primary documented in this encounter Care Teams Associate Professor Of Literature Relationship Specialty Start Date End Date Mike Mckenzie MD [address] [place], [place] [id number] PCP - General Internal Medicine 11/30/21 Levi Nguyễn MD [address] [address] Consulting Physician Urology 03/15/22 documented as of this encounter
--- OUTSIDE RECORDS SUMMARY | 2024-06-13 19:06 | XMS_ITS | Encounter Summary ---
Author Organization [facility] Address [address] [place] [place] [address] Phone Care Team Providers Care Die Maker Trim Name Role Phone Mike Duong MD Primary Care Provider [phone] Reason for Referral * Radiology Services (Routine) - Closed Specialty Diagnoses / Procedures Referred By Michelle loja Referred To Contact Radiology Diagnoses Gross hematuria Procedures CT UROGRAPHY WO/W CONTRAST Levi Gupta MD [address] [place] [address] Phone: tel: fax: Referral ID Status Reason Start Date Expiration Date Visits Re quested Visits Authorized [id number] Closed 03/03/2022 1 1 Reason for Visit * Reason Comments Abnormal Study/Test Result ELEVATED PSA * Consult, Test & Initiate Treatment (Routine) - Closed Specialty Diagnoses / Procedures Referred By Michelle loja Referred To Contact Urology Diagnoses Elevated PSA Mike Duong MD [address] [place] [address] Phone: tel: fax: [facility] [address] [place] [address] Phone: tel: fax: Referral ID Status Reason Start Date Expiration Date Visits Re quested Visits Authorized [id number] Closed 1 1 Encounter Details Date Type Department Care Team (Late st Contact Info) Description 03/03/2022 10:30 AM CDT Office Visit [facility] [address] [place] [address] Levi Gupta MD [address], [facility] [address] [place] [address] Elevated PSA (Primary Dx); Gross hematuria Discharge Disposition: Discharged to home or Selfcare [...] Recorded In the last 10 days, have ildefonso u been in contact with someone who was confirmed or suspected to have Coronavirus/COVID-19? No / Unsure 03/03/2022 10:06 AM CDT documented as of this encounter Last Filed Vital Signs Vital Sign Reading Time Taken Comments Blood Pressure - - Pulse 89 03/03/2022 10:23 AM CDT Temperature 36.4 ??C (97.6 ??F) 03/03/2022 10:23 AM C DT Respiratory Rate 20 03/03/2022 10:23 AM CDT Oxygen Saturation 97% 03/03/2022 10:23 AM CDT Inhaled Oxygen Concentration - - Weight 83.9 kg (185 lb) 03/03/2022 10:23 AM CDT Height 167.6 cm (5' 6 ) 03/03/2022 10:23 AM CDT Body Mass Index 29.86 03/03/2022 10:23 AM CDT documented in this encounter Progress Notes * Levi Gupta MD - 03/03/2022 10:30 AM CDT Primary Care Physician: MIKE DUONG MD Chief Complaint: Elevated PSA History of Present Illness: Javier Greene is a 82 y.o. male seen at the request of Dr. Duong for the evaluation and management of elevated PSA. The patient denies a family history of prostate cancer. He denies bone pain, unintentional weight loss, night sweats and fevers. His PSA history includes: 5.49 Today on UA found to have 50 rbc/uL. >30 PY tobacco use history, no family history of cancer. History reviewed. No pertinent past medical history. Past Surgical History: Procedure Laterality Date ??? CATARACT REMOVAL Right ??? LAP,CHOLECYSTECTOMY ??? SHOULDER ARTHROSCOPY Current Outpatient Medications Medication Sig Dispense Refill ??? Albuterol Sulfate, sensor, (ProAir Digihaler) 108 (90 Base) MCG/ACT AEROSOL POWDER, BREATH ACTIVATED take by inhalation. ??? atorvastatin (LIPITOR) 20 MG Tablet Take 20 mg by mouth daily. ??? carbamide peroxide (DEBROX) 6.5 % Solution Place 5 Drops in affected ear(s) 2 times daily. ??? diclofenac (VOLTAREN) 75 MG Tablet Delayed Response Take 75 mg by mouth 3 times daily. ??? DULoxetine (CYMBALTA) [address] Particles Take 20 mg by mouth nightly. ??? famotidine (PEPCID) 20 MG Tablet Take 20 mg by mouth 2 times daily. ??? HYDROcodone-acetaminophen (NORCO) 10-325 MG Tablet Take 1 Tablet by mouth every 6 hours as needed. ??? levoFLOXacin (LEVAQUIN) 750 MG Tablet ??? lisinopril (PRINIVIL, ZESTRIL) 20 MG Tablet Take 20 mg by mouth daily. (Patient not taking: Reported on 03/03/2022) ??? montelukast (SINGULAIR) 10 MG Tablet Take 10 mg by mouth every evening. ??? predniSONE (DELTASONE) 50 MG Tablet ??? tamsulosin (FLOMAX) 0.4 MG Capsule ??? theophylline (ANKITA-24) 400 MG CAPSULE SR 24 HR Take 400 mg by mouth daily. ??? theophylline (THEOCHRON) 400 MG TABLET SR 24 HR ??? verapamil (CALAN,ISOPTIN) 120 MG Tablet Take 120 mg by mouth 3 times daily. No current facility-administered medications for this visit. Allergies Allergen Reactions ??? Asa [Aspirin] Nausea ??? Methylprednisolone Nausea Social History Socioeconomic History ??? Marital status: Tobacco Use ??? Smoking status: Current Every Day Smoker Packs/day: 1.50 ??? Smokeless tobacco: Never Used Substance and Sexual Activity ??? Alcohol use: Never Family History Problem Relation Age of Onset ??? Dementia Mother ??? Heart Disease Mother ??? No Known Problems Father ??? Coronary Artery Disease Sister ??? Other-comment Brother meningitis at age 11 REVIEW OF SYSTEMS: As per the HPI. All other systems were reviewed and are negative. The complete REVIEW OF SYSTEMS, MEDICATION LIST and DRUG ALLERGIES, PAST MEDICAL HISTORY, FAMILY MEDICAL HISTORY and SOCIAL HISTORY are documented in detail and were reviewed with the patient. The patient was asked to review all abnormal responses not pertinent to today's visit with their primary care physician. PHYSICAL EXAMINATION: Constitutional: General appearance: Well nourished, well developed male in no acute distress. Appears stated age Eyes: EOMI, no scleral icterus Neurologic: Normal mood and affect.Moving all extremities Respiratory: Normal respiratory effort. No use of accessory muscles Cardiovascular: No lower extremity edema. Extremities well perfused. Ears, Nose, Throat, Mouth: midline trachea, no thryomegaly. Soft, supple appearing. Skin: Warm and dry. Gastrointestinal: No masses. No abdominal tenderness. No hernias. No hepatosplenomegaly. Musculoskeletal: moving all extremities. Lymphatic: No inguinal lymphadenopathy. Psychiatry: Normal mood, alert and oriented : BLADIMIR at time of cysto ASSESSMENT AND PLAN: This is a 82 y.o. male with an microscopic hematuria and PSA 5.9. 1. Hematuria: We discussed the multifactorial etiology of microscopic and gross hematuria. We discussed the differential which includes malignancy, nephrolithiasis, infection, trauma, inflammation, obstructive etiologies, medications. We reviewed most recent AUA guidelines on hematuria evaluation which takes a risk stratified approach: 1. Low risk patients include -women <50, men <40; <10 pack years of smoking; 3-10 rbc/hpf; no other risk factors or prior MH 2. Intermediate risk patients include - women 50-59, men 40-59; 10-30 pack years of smoking; 11-25 rbc/hpf or previous MH or additional risk factors 3. History risk patients include >60 age, >30 pack year of smoking, gross hematuria, >25 rbc/hpf For low/intermediate risk patients, generally recommend renal US and cystoscopy. For high risk patients recommend cystoscopy and CT Urogram. For low risk patients may consider repeat UA within 6 months as well. Discussed risk of cystoscopy which include infection, pain, bleeding, urethral Stricture/injury, Nondiagnostic/false negative study. discussed use of CT scan which includes contrast induced nephropathy, radiation exposure, incidental findings. Plan: -CTU and cystoscopy 2. PSA: We discuss that fo men in their 80s, PSA of 6.5-10 is considered acceptable assuming no increase from prior value. We did discuss consider prostate biopsy however given PSA <6.5 will plan for repeat PSA to ensure not trending up Plan: -Cysto -CTU -PSA documented in this encounter Procedure Notes * Omkar Avila RMA - 03/03/2022 10:30 AM CDTProcedure(s): NATY,POST-VOID RES,US,NON-IMAGING POCT Bladder Scan collected per standing order of DR GUPTA on 03/03/2022 PVR= 167 ML documented in this encounter Plan of Treatment Scheduled Orders Name Type Priority Associated Diagnoses Orde r Schedule NATY,POST-VOID RES,US,NON-IMAGING Procedures Routine Elevated PSA 12 Occurrences starting 03/03/2022 until 03/03/2023 PSA DIAGNOSTIC,TOTAL Lab Routine Gross hematuria Expected: 03/10/2022, Expires: 09/01/2023 CT UROGRAPHY WO/W CONTRAST Imaging Routine Gross hematuria Expected: 04/02/2022, Expires: 09/01/2023 documented as of this encounter Procedures Procedure Name Priority Date/Time Associated Diagnosis Comments POCT UA AUTOMATED W/O MICRO Routine 03/03/2022 10:30 AM CDT Elevated PSA documented in this encounter Results * (ABNORMAL) POCT UA AUTOMATED W/O MICRO (03/03/2022 10:30 AM CDT) POC UA SPECIFIC GRAVITY 1.005 URINE PH 6.0 5.0 - 9.0 POC URINE LEUKOCYTES Negative Negative Anamika/uL POC URINE NITRITE Negative Negative POC URINE PROTEIN Negative Negative mg/dL POC URINE GLUCOSE Negative Negative, Norm mg/dL POC URINE KETONE Negative Negative mg/dL POC URINE UROBILINOGEN Norm Norm, 0.2 mg/dL, 1 mg/dL POC URINE BILIRUBIN Negative Negative mg/dL POC URINE BLOOD INSTRUMENT 50 Angus/uL(A) Negative Angus/uL POC URINE COLOR Yellow POC URINE CLARITY Clear Urine 03/03/2022 10:3 0 AM CDT [facility] Daniel Gupta MD POINT OF CARE TESTING (MANUAL) Final Result documented in this encounter Visit Diagnoses Diagnosis Elevated PSA- Primary Elevated prostate specific antigen (PSA) Gross hematuria documented in this encounter Care Teams Die Maker Trim Relationship Specialty Start Date End Date Mike Duong MD [address] [place], [place] [id number] PCP - General Internal Medicine 11/30/21 documented as of this encounter
--- OUTSIDE RECORDS SUMMARY | 2024-06-13 20:50 | XMS_ITS | Encounter Summary ---
Author Organization [facility] Address [address] [place] [address]. [place] [address] [place] [address] Care Team Providers Care Electronic Semiconductor Processor Name Role Phone Mike Mckenzie MD Primary Care Provider [phone] Encounter Details Date Type Department Care Team (Late st Contact Info) Description 02/05/2024 Orders Only [facility] [address] [place] [address] Mike Mckenzie MD [address] [place] [id number] Social History Tobacco Use Types Packs/Day Years [...] NEGATIVE <25 ng/mL 02/07/2024 12:37 PM CDT [facility] LLY Comment: Test Performed by Miri Covarrubias, [employer] [facility], [address] [place], [place] Byron Ward M.D., Ph.D., Director of Laboratories , [place] [id number] 02/05/2024 1:54 PM CDT Mike Mckenzie MD LABORATORY Final Result [facility] [place], [place] , * (ABNORMAL) URINALYSIS (02/05/2024 1:54 PM CDT) COLOR (U) DARK YELLOW 02/05/2024 2:25 PM CDT [facility] TRANSPARENCY SLIGHTLY CLOUDY 02/05/2024 2:25 PM CDT [facility] SPECIFIC GRAVITY (U) 1.025 1.000 - 1.025 02/05/2024 2:25 PM CDT [facility] U PH 5.5 5.0 - 8.0 02/05/2024 2:25 PM CDT [facility] LEUKOCYTES (U) 1+(A) NEGATIVE 02/05/2024 2:25 PM CDT [facility] NITRITES NEGATIVE NEGATIVE 02/05/2024 2:25 PM CDT [facility] PROTEIN RANDOM (U) 2+(A) NEGATIVE 02/05/2024 2:25 PM CDT [facility] GLUCOSE (U) NEGATIVE NEGATIVE 02/05/2024 2:25 PM CDT [facility] KETONES MG/DL (U) NEGATIVE NEGATIVE 02/05/2024 2:25 PM CDT [facility] UROBILINOGEN 1.0(H) <1.0 EU/DL 02/05/2024 2:25 PM CDT [facility] BILIRUBIN (U) NEGATIVE NEGATIVE 02/05/2024 2:25 PM CDT [facility] BLOOD (U) TRACE(A) NEGATIVE 02/05/2024 2:25 PM CDT [facility] WBC/HPF 0-5 0 - 5 /HPF 02/05/2024 2:25 PM CDT [facility] RBC/HPF 0-5 0 - 5 /HPF 02/05/2024 2:25 PM CDT [facility] EPI/LPF RARE /LPF 02/05/2024 2:25 PM CDT [facility] BACTERIA (U) TRACE /HPF 02/05/2024 2:25 PM CDT [facility] URINE SPECIMEN OBTAINED BY CLEAN CATCH PROCEDURE / Unknown 02/05/2024 1:54 PM CDT us Mike Mckenzie MD URINE ORDERABLES Final Result Performing Organization Address [facility] Co de Phone Number [facility] [address] [place] [address], [place] [phone] * (ABNORMAL) THEOPHYLLINE (02/05/2024 1:47 PM CDT) THEOPHYLLINE 4.5(L) 10.0 - 20.0 MCG/ML 02/06/2024 12:19 PM CDT [facility] 02/05/2024 1:47 PM CDT us Mike Mckenzie MD LABORATORY Final Result Performing Organization Address [facility] de Phone Number [facility] [address] [place] [address], [place] [phone] * (ABNORMAL) C-REACTIVE PROTEIN (02/05/2024 1:47 PM CDT) C-REACTIVE PROTEIN 9.83(H) <0.30 mg/dL 02/05/2024 2:28 PM CDT [facility] 02/05/2024 1:47 PM CDT us Mike Mckenzie MD LABORATORY Final Result Performing Organization Address [facility] Co de Phone Number [facility] [place] [address], [place] [phone] * LIPASE (02/05/2024 1:47 PM CDT) LIPASE 25 16 - 77 UNITS/L 02/05/2024 2:28 PM CDT [facility] 02/05/2024 1:47 PM CDT us Mike Mckenzie MD LABORATORY Final Result [facility] [address] [place] [address], * AMYLASE (02/05/2024 1:47 PM CDT) AMYLASE S/P/B 40 25 - 115 UNITS/L 02/05/2024 2:28 PM CDT [facility] 02/05/2024 1:47 PM CDT Mike Mckenzie MD LABORATORY Final Result [facility] [place] [address], * (ABNORMAL) CBC W/DIFF AUTOMATED (02/05/2024 1:47 PM CDT) Pathologist [facility] WBC 12.12(H) 4.00 - 10.80 x10'3/uL 02/05/2024 2:15 PM CDT [facility] RBC 5.15 4.50 - 6.10 x10'6/uL 02/05/2024 2:15 PM CDT [facility] HGB 15.5 13.0 - 18.0 G/DL 02/05/2024 2:15 PM CDT [facility] HCT 45.5 37.0 - 52.0 % 02/05/2024 2:15 PM CDT [facility] MCV 88.3 78.0 - 100.0 FL 02/05/2024 2:15 PM CDT [facility] MCH 30.1 27.0 - 31.0 PG 02/05/2024 2:15 PM CDT [facility] MCHC 34.1 33.0 - 36.0 G/DL 02/05/2024 2:15 PM CDT [facility] RDW 14.0 11.5 - 14.5 % 02/05/2024 2:15 PM CDT [facility] PLT 281 150 - 350 x10'3/uL 02/05/2024 2:15 PM CDT [facility] MPV 10.5(H) 7.4 - 10.4 FL 02/05/2024 2:15 PM CDT [facility] CBC COMMENT NORMAL REFERENCE RANGE NOT ESTABLISHED FOR THE PROPORTIONAL LEUKOCYTE DIFFERENTIAL. 02/05/2024 2:15 PM CDT [facility] NEUTROPHILS % 90.4 % 02/05/2024 2:15 PM CDT [facility] LYMPHOCYTES % 4.2 % 02/05/2024 2:15 PM CDT [facility] MONOCYTES % 4.9 % 02/05/2024 2:15 PM CDT [facility] EOSINOPHILS % 0.0 % 02/05/2024 2:15 PM CDT [facility] BASOPHILS % 0.2 % 02/05/2024 2:15 PM CDT [facility] IMMATURE GRANS % 0.3 % 02/05/20 2:15 PM CDT [facility] NRBC 0.0 % 02/05/2024 2:15 PM CDT [facility] ABS. NEUTROPHILS 10.95(H) 1.60 - 8.30 x10'3/uL 02/05/2024 2:15 PM CDT [facility] ABS. LYMPHOCYTES 0.51(L) 0.80 - 4.70 x10'3/uL 02/05/2024 2:15 PM CDT [facility] ABS. MONOCYTES 0.59 0.00 - 1.50 x10'3/uL 02/05/2024 2:15 PM CDT [facility] ABS. EOSINOPHILS 0.00 0.00 - 0.40 x10'3/uL 02/05/2024 2:15 PM CDT [facility] ABS. BASOPHILS 0.03 0.00 - 0.20 x10'3/uL 02/05/2024 2:15 PM CDT [facility] ABS. IMMATURE GRANULOCYTES 0.04(H) 0.00 - 0.03 x10'3/uL 02/05/2024 2:15 PM CDT [facility] ABS. NUCLEATED RBC'S 0.00 0.00 - 0.01 x10'3/uL 02/05/2024 2:15 PM CDT [facility] 02/05/2024 1:47 PM CDT Mike Mckenzie MD LABORATORY Final Result [facility] [address] [place] [address], * (ABNORMAL) COMPREHENSIVE METABOLIC PANEL (02/05/2024 1:47 PM CDT) SODIUM S/P/B 135(L) 136 - 145 MMOL/L 02/05/2024 2:28 PM CDT [facility] POTASSIUM S/P/B 4.0 3.5 - 5.1 MMOL/L 02/05/2024 2:28 PM CDT [facility] CHLORIDE S/P/B 102 98 - 107 MMOL/L 02/05/2024 2:28 PM CDT [facility] CO2 24.0 21.0 - 32.0 MMOL/L 02/05/2024 2:28 PM CDT [facility] GLUCOSE 135(H) 70 - 99 MG/DL 02/05/2024 2:28 PM CDT [facility] Comment: FASTING GLUCOSE 100 TO 125 MG/DL IS CONSISTENT WITH IMPAIRED FASTING GLUCOSE. FASTING GLUCOSE >125 MG/DL IS CONSISTENT WITH DIABETES. RANDOM GLUCOSE >200 MG/DL WITH HYPERGLYCEMIC SYMPTOMS IS CONSISTENT WITH DIABETES. PER ADA GUIDELINES BUN 26(H) 6 - 24 MG/DL 02/05/2024 2:28 PM CDT [facility] CREATININE S/P/B 1.37(H) 0.70 - 1.30 MG/DL 02/05/2024 2:28 PM CDT [facility] CALCIUM S/P/B 8.7 8.4 - 10.5 MG/DL 02/05/2024 2:28 PM CDT [facility] BILIRUBIN TOTAL S/P/B 0.9 0.2 - 1.0 MG/DL 02/05/2024 2:28 PM T [facility] Comment: THIS ASSAY IS NOT RECOMMENDED FOR PATIENTS UNDERGOING TREATMENT WITH ELTROMBOPAG DUE TO THE POTENTIAL FOR FALSELY ELEVATED RESULTS. ALKALINE PHOSPHATASE S/P/B 105 45 - 115 U/L 02/05/2024 2:28 PM [facility] AST 27 15 - 37 U/L 02/05/2024 2:28 PM [facility] ALT 34 16 - 63 U/L 02/05/2024 2:28 PM [facility] TOTAL PROTEIN S/P/B 7.8 6.4 - 8.2 G/DL 02/05/2024 2:28 PM [facility] ALBUMIN S/P/B 3.3(L) 3.4 - 5.0 G/DL 02/05/2024 2:28 PM [facility] ANION GAP 9.0 5.0 - 15.0 MMOL/L 02/05/2024 2:28 PM [facility] OSMOLALITY (CALC) 287 MOSM/KG 024 2:28 PM [facility] Comment:REFERENCE RANGE NOT ESTABLISHED GFR ESTIMATE 52(L) >89 ML/MIN/1. 73 M2 02/05/2024 2:28 PM [facility] GFR NOTES GFR REFERENCE S: 02/05/2024 2:28 PM [facility] Comment: THE ESTIMATED GFR [...] CDT Mike Mckenzie MD LABORATORY Final Result [facility] [address] [place] [address], documented in this encounter Visit Diagnoses Diagnosis Nausea- Primary Nausea alone Vomiting Vomiting alone COPD exacerbation ([facility]) Obstructive chronic bronchitis with exacerbation Encounter for long-term (current) use of medications Encounter for long-term (current) use of other medications documented in this encounter Care Teams Electronic Semiconductor Processor Relationship Specialty Start Date End Date Mike Mckenzie MD [address] [place] [address] PCP - General INTERNAL MEDICINE 08/11/22 documented as of this encounter
--- OUTSIDE RECORDS SUMMARY | 2024-06-13 20:50 | XMS_ITS | Encounter Summary ---
Author Organization [facility] Address [address] [place] [address]. [place], [place] [address] [place] [address] Care Team Providers Care Cracking Unit Operator Name Role Phone Mike Mckenzie MD Primary Care Provider [phone] Encounter Details Date Type Department Care Team [...] on filedocumented in this encounter Care Teams Cracking Unit Operator Relationship Specialty Start Date End Date Mike Mckenzie MD [address] [place] [address] PCP - General INTERNAL MEDICINE 08/11/22 documented as of this encounter
--- OUTSIDE RECORDS SUMMARY | 2024-06-13 20:50 | XMS_ITS | Encounter Summary ---
Author Organization [facility] Address [address] [place] [address]. [place], [place] [address] [place] [address] Care Team Providers Care Die Reamer Name Role Phone Mike Mckenzie MD Primary Care Provider [phone] Encounter Details Date Type Department Care Team [...] on filedocumented in this encounter Care Teams Die Reamer Relationship Specialty Start Date End Date Mike Mckenzie MD [address] [place] [address] PCP - General INTERNAL MEDICINE 08/11/22 documented as of this encounter
--- OUTSIDE RECORDS SUMMARY | 2024-06-13 20:50 | XMS_ITS | Clinical Summary ---
Author Organization [facility] Address [address] [place] [address]. [place], [place] [address] [place] [address] Care Team Providers Care Explosive Technician Name Role Phone Mike Duong MD Primary Care Provider [phone] Allergies Active Allergy Reactions Criticality Noted Date Comments Aspirin Nausea Only 12/01/2021 Methylprednisolone Nausea Only 12/01/2021 Medications atorvastatin (LIPITOR) 20 MG tablet Take 1 tablet (20 mg total) by mouth daily. Active Albuterol Sulfate, sensor, (PROAIR DIGIHALER) 108 (90 Base) MCG/ACT AEROSOL POWDER, BREATH ACTIVATED Inhale 1 Inhaler into the lungs as needed. Active diclofenac EC (VOLTAREN) 75 MG tablet Take 1 tablet (75 mg total) by mouth 2 (two) times daily. Active lisinopril (PRINIVIL) 20 MG tablet Take 1 tablet (20 mg total) by mouth daily. Active theophylline ER (UNIPHYL) 400 MG 24 hr tablet Take 1 tablet (400 mg total) by mouth daily. Active montelukast (SINGULAIR) 10 MG tablet Take 1 tablet (10 mg total) by mouth nightly at bedtime. Active verapamil ER (VERELAN PM) 120 MG 24 hr capsule Take 1 capsule (120 mg total) by mouth nightly at bedtime. Active famotidine (PEPCID) 20 MG tablet Take 1 tablet (20 mg total) by mouth 2 (two) times daily. Active tamsulosin (FLOMAX) 0.4 MG Cap Take 1 capsule (0.4 mg total) by mouth daily. Active omeprazole (PRILOSEC) 20 MG capsule Take 1 capsule (20 mg total) by mouth daily. Active HYDROcodone-daryl taminophen (NORCO) 10-325 MG tablet 09/07/2022 Active Active Problems Problem Noted Date Diagnosed Date Other closed intra-articular fracture of distal end of right radius with delayed healing, subsequent encounter 08/16/2022 Encounters Date Type Department Care Team Description 04/07/2024 2:30 PM CDT - 04/07/2024 11:59 PM CDT Hospital Encounter [facility] [address] [place] [address] Mike Duong MD Discharge Disposition: Home or Self Care (Routine Discharge) 04/07/2024 2:29 PM CDT - 04/07/2024 2:35 PM CDT Emergency [facility] [address] [place] [address] Hip Pain Discharge Disposition: Home or Self Care (Routine Discharge) 04/07/2024 Travel from Last 3 Months Social History Tobacco Use Types Packs/Day Years [...] CDT Inhaled Oxygen Concentration - - Weight 80.7 kg (178 lb) 09/28/2022 2:38 PM CDT Height 167.6 cm (5' 6 ) 09/28/2022 2:38 PM CDT Body Mass Index 28.73 09/28/2022 2:38 PM CDT Plan of Treatment Health Maintenance Due Date Last Done Comments DTaP, Tdap and Td Vaccines (1 - Tdap) 02/19/1960 Zoster Vaccines (1 of 2) 1991 Annual Medicare Wellness Visit 2006 RSV Immunization or 60+ Years (1 - 1-dose 75+ series) 02/19/2016 COVID-19 Vaccine ( season) 2024 09/24/2020, 08/27/2020 Influenza Adult (#1) 2024 04/13/2021, 04/02/2020, 05/09/2019, Additional history exists Pneumococcal Vaccine: 65+ Years Completed 05/03/2016, 04/12/2015, 04/06/2008 Meningococcal Vaccine Aged Out No leslie delroy eligible based on patient's age to complete this topic RSV Immunizations Under 20 Months Aged Out No longer eligible based on patient's age to complete this topic Procedures Procedure Name Priority Date/Time Associated Diagnosis Comments CTA HEAD+NECK Routine 04/07/2024 3:26 PM CDT Cerebrovascular disease CREATININE STAT 04/07/2024 2:58 PM CDT from Last 3 Months Results * CTA HEAD+NECK (04/07/2024 3:26 PM CDT) Anatomical Region Laterality Modality Head, Neck Computed Tomogra phy 04/08/2024 8:50 PM CDT Impressions 04/08/2024 8:58 PM CDT IMPRESSION: 1. Approximately 50% stenosis proximal right cervical ICA. 2. No evidence of occlusion of the proximal major segments of the [place] of [place]. 3. Additional multifocal atherosclerotic disease elsewhere as detailed. 4. Suspicious 9 mm irregular right upper lobe nodule. Advise further evaluation with PET/CT or tissue sampling. 5. Bilateral thyroid nodules measuring up to 3 cm on the left. Could further evaluate with follow-up thyroid ultrasound. Referred By: MIKE DUONG Interpreted By: Oliverio Zarate MD, 04/08/2024 8:50 PM Narrative 04/08/2024 8:58 PM [address]T [address] [place] [address] INDICATION: Cerebrovascular disease. Episode of dizziness. EXAMINATION: [...] Procedure Note Oliverio Zarate MD - 04/08/2024 [facility] [address] [place] [address] INDICATION: Cerebrovascular disease. Episode of dizziness. EXAMINATION: [...] - 1.30 MG/DL 04/07/2024 3:18 PM CDT [facility] GFR ESTIMATE 71(L) >89 ML/MIN/1. 73 M2 04/07/2024 3:18 PM CDT [facility] GFR NOTES GFR REFERENCE S: 04/07/2024 3:18 PM CDT [facility] Comment: THE ESTIMATED GFR IS [...] CDT Mike Duong MD LABORATORY Final Result [facility] [address] [place] [address], from Last 3 Months Insurance Care Teams Explosive Technician Relationship Specialty Start Date End Date Mike Duong MD [address] [place] [address] PCP - General INTERNAL MEDICINE 08/11/22
--- OUTSIDE RECORDS SUMMARY | 2024-06-13 20:50 | XMS_ITS | Encounter Summary ---
Author Organization [facility] Address [address] [place] [address]. [place], [place] [address] [place] [address] Care Team Providers Care Promotions Specialist Name Role Phone Mike Mckenzie MD Primary Care Provider [phone] Encounter Details Date Type Department Care Team [...] on filedocumented in this encounter Care Teams Promotions Specialist Relationship Specialty Start Date End Date Mike Mckenzie MD [address] [place] [address] PCP - General INTERNAL MEDICINE 08/11/22 documented as of this encounter
--- OUTSIDE RECORDS SUMMARY | 2024-06-13 20:50 | XMS_ITS | Encounter Summary ---
Author Organization [facility] Address [address] [place] [address]. [place] [address] [place] [address] Care Team Providers Care Transit Mechanic Name Role Phone Mike Mckenzie MD Primary Care Provider [phone] Encounter Details Date Type Department Care Team (Latest Contact Info) Description 08/23/2022 2:27 PM TAILING HAND - 08/23/2022 11:59 PM TAILING HAND Hospital Encounter [facility] [address] [place] [address] Zain Meraz MD [address] [place] [address] Discharge Disposition: Home or Self Care (Routine [...] Coronavirus/COVID-19? No / Unsure 08/23/2022 2:25 PM TAILING HAND documented as of this encounter Medications at [...] WRIST RT 2V Routine 08/23/2022 2:33 PM TAILING HAND Other closed intra-articular fracture of distal end of right radius, initial encounter documented in this encounter Results * XR WRIST RT 2V (08/23/2022 2:33 PM TAILING HAND) Anatomical Region Laterality Modality Wrist Radiographic Steph ging 08/23/2022 2:55 PM TAILING HAND Impressions 08/23/2022 2:57 PM TAILING HAND IMPRESSION: 1) Impacted distal right radius fracture with mild residual deformity similar to previous study. Ordered By: ZAIN MERAZ Interpreted By: Seymour Gaona MD, 08/23/2022 2:55 PM Narrative 08/23/2022 2:57 PM TAILING HAND Examination: XR WRIST RT 2V Exam time: [...] encounter documented in this encounter Care Teams Transit Mechanic Relationship Specialty Start Date End Date Mike Mckenzie MD [address] [place] [address] PCP - General INTERNAL MEDICINE 08/11/22 documented as of this encounter
--- OUTSIDE RECORDS SUMMARY | 2024-06-13 20:50 | XMS_ITS | Encounter Summary ---
Author Organization [facility] Address [address] [place] [address]. [place] [address] [place] [address] Care Team Providers Care Electrical And Radio Aircraft Mechanic Name Role Phone Mike Mckenzie MD Primary Care Provider [phone] Encounter Details Date Type Department Care Team (Late st Contact Info) Description 02/05/2024 1:09 PM CDT - 02/05/2024 11:59 PM CDT Hospital Encounter [facility] [address] [place] [address] Mike Mckenzie MD [address] [place] [phone] Discharge Disposition: Home or Self Care (Routine [...] 1:54 PM CDT Nausea Vomiting COPD exacerbation ([facility]) Encounter for long-term (current) use of medications HC URINALYSIS AUTO W/MICRO Routine 02/05/2024 1:54 PM CDT Nausea Vomiting COPD exacerbation ([facility] HHS/HCC) COMPREHENSIVE METABOLIC PANEL Routine 02/05/2024 1:47 PM CDT Nausea Vomiting COPD exacerbation ([facility] HHS/HCC) C-REACTIVE PROTEIN Routine 02/05/2024 1: 47 PM CDT Nausea Vomiting COPD exacerbation ([facility] HHS/[facility]) CBC W/DIFF AUTOMATED Routine 02/05/2024 1:47 PM CDT Nausea Vomiting COPD exacerbation ([facility] HHS/HCC) AMYLASE Routine 02/05/2024 1:47 PM CDT Nausea Vomiting COPD exacerbation (CMS/HCC HHS/HCC) LIPASE Routine 02/05/2024 1:47 PM CDT Nausea Vomiting COPD exacerbation (CMS/HCC HHS/HCC) THEOPHYLLINE Routine 02/05/2024 1:47 PM CDT Nausea Vomiting COPD exacerbation (CMS/HCC HHS/HCC) documented in this encounter Results * DRUG MONITORING, NOTES AND COMMENTS (REFLEX ONLY) (02/05/2024 1:54 PM CDT) Note 02/07/2024 12:37 PM CDT [employer] JAYESH TYLER Comment: ? This drug testing is for medical treatment only. Analysis was performed as non-forensic testing and these results should be used only by healthcare providers to render diagnosis or treatment, or to monitor progress of medical conditions. ? Healthcare Providers needing Interpretation assistance, please contact us at [phone] ( ) M-F, 8am to 10pm EST Test Performed by Miri Covarrubias, [employer] [facility], [address] [place] [address] Byron Ward M.D., Ph.D., Director of Laboratories , [facility] [id number] 02/05/2024 1:54 PM CDT Mike Mckenzie MD LABORATORY Final Result [facility] [place], [place] , * DRUG SCREEN, URINE W/ [...] LLY Comment: Test Performed by Miri Covarrubias, [facility], [address] [place], [place] Byron Ward M.D., Ph.D., Director of Laboratories , [facility] [id number] 02/05/2024 1:54 PM CDT Mike Mckenzie MD LABORATORY Final Result [facility] [address] [place] [address], [place] [phone] * (ABNORMAL) URINALYSIS (02/05/2024 1:54 PM CDT) COLOR (U) DARK YELLOW 02/05/2024 2:25 PM CDT [facility] TRANSPARENCY SLIGHTLY CLOUDY 02/05/2024 2:25 PM CDT [facility] SPECIFIC GRAVITY (U) 1.025 1.000 - 1.025 02/05/2024 2:25 PM CDT [facility] U PH 5.5 5.0 - 8.0 02/05/2024 2:25 PM CDT [facility] LEUKOCYTES (U) 1+(A) NEGATIVE 02/05/2024 2:25 PM CDT [facility] NITRITES NEGATIVE NEGATIVE 02/05/2024 2:25 PM CDT [facility] PROTEIN RANDOM (U) 2+(A) NEGATIVE 02/05/2024 2:25 PM CDT [facility] GLUCOSE (U) NEGATIVE NEGATIVE 02/05/2024 2:25 PM CDT [facility] KETONES MG/DL (U) NEGATIVE NEGATIVE 02/05/2024 2:25 PM CDT [facility] UROBILINOGEN 1.0(H) <1.0 EU/DL 02/05/2024 2:25 PM CDT [facility] BILIRUBIN (U) NEGATIVE NEGATIVE 02/05/2024 2:25 PM CDT [facility] BLOOD (U) TRACE(A) NEGATIVE 02/05/2024 2:25 PM CDT [facility] WBC/HPF 0-5 0 - 5 /HPF 02/05/2024 2:25 PM CDT [facility] RBC/HPF 0-5 0 - 5 /HPF 02/05/2024 2:25 PM CDT [facility] EPI/LPF RARE /LPF 02/05/2024 2:25 PM CDT [facility] BACTERIA (U) TRACE /HPF 02/05/2024 2:25 PM CDT [facility] URINE SPECIMEN OBTAINED BY CLEAN CATCH PROCEDURE / Unknown 02/05/2024 1:54 PM CDT us Mike Mckenzie MD URINE ORDERABLES Final Result [address] [address], * (ABNORMAL) THEOPHYLLINE (02/05/2024 1:47 PM CDT) THEOPHYLLINE 4.5(L) 10.0 - 20.0 MCG/ML 02/06/2024 12:19 PM CDT [facility] 02/05/2024 1:47 PM CDT us Mike Mckenzie MD LABORATORY Final Result Performing Organization Address City/[facility]/ZIP Co de Phone Number [facility] [address] [place] [address], [place] [phone] * (ABNORMAL) C-REACTIVE PROTEIN (02/05/2024 1:47 PM CDT) C-REACTIVE PROTEIN 9.83(H) <0.30 mg/dL 02/05/2024 2:28 PM CDT [facility] 02/05/2024 1:47 PM CDT us Mike Mckenzie MD LABORATORY Final Result Performing Organization Address City/[facility]/ZIP Co de Phone Number [facility] [address] [place] [address], [place] [phone] * LIPASE (02/05/2024 1:47 PM CDT) Pathologist [facility] LIPASE 25 16 - 77 UNITS/L 02/05/2024 2:28 PM CDT [facility] 02/05/2024 1:47 PM CDT us Mike Mckenzie MD LABORATORY Final Result Performing Organization Address [facility]/ZIP Co de Phone Number [facility] [address] [place] [address], * AMYLASE (02/05/2024 1:47 PM CDT) Pathologist [facility] AMYLASE S/P/B 40 25 - 115 UNITS/L 02/05/2024 2:28 PM CDT [facility] 02/05/2024 1:47 PM CDT us Mike Mckenzie MD LABORATORY Final Result Performing Organization Address [facility] Co de Phone Number [facility] [address] [place] [address], [place] [phone] * (ABNORMAL) CBC W/DIFF AUTOMATED (02/05/2024 1:47 PM CDT) [facility] WBC 12.12(H) 4.00 - 10.80 x10'3/uL 02/05/2024 2:15 PM CDT [facility] RBC 5.15 4.50 - 6.10 x10'6/uL 02/05/2024 2:15 PM CDT [facility] HGB 15.5 13.0 - 18.0 G/DL 02/05/2024 2:15 PM CDT [facility] HCT 45.5 37.0 - 52.0 % 02/05/2024 2:15 PM CDT [facility] MCV 88.3 78.0 - 100.0 FL 02/05/2024 2:15 PM CDT [facility] MCH 30.1 27.0 - 31.0 PG 02/05/2024 2:15 PM CDT [facility] MCHC 34.1 33.0 - 36.0 G/DL 02/05/2024 2:15 PM CDT [facility] RDW 14.0 11.5 - 14.5 % 02/05/2024 2:15 PM CDT [facility] PLT 281 150 - 350 x10'3/uL 02/05/2024 2:15 PM CDT [facility] MPV 10.5(H) 7.4 - 10.4 FL 02/05/2024 2:15 PM CDT [facility] CBC COMMENT NORMAL REFERENCE RANGE NOT ESTABLISHED FOR THE PROPORTIONAL LEUKOCYTE DIFFERENTIAL. 02/05/2024 2:15 PM CDT [facility] NEUTROPHILS % 90.4 % 02/05/2024 2:15 PM CDT [facility] LYMPHOCYTES % 4.2 % 02/05/2024 2:15 PM CDT [facility] MONOCYTES % 4.9 % 02/05/2024 2:15 PM CDT [facility] EOSINOPHILS % 0.0 % 02/05/2024 2:15 PM CDT [facility] BASOPHILS % 0.2 % 02/05/2024 2:15 PM CDT [facility] IMMATURE GRANS % 0.3 % 02/05/20 2:15 PM CDT [facility] NRBC 0.0 % 02/05/2024 2:15 PM CDT [facility] ABS. NEUTROPHILS 10.95(H) 1.60 - 8.30 x10'3/uL 02/05/2024 2:15 PM CDT [facility] ABS. LYMPHOCYTES 0.51(L) 0.80 - 4.70 x10'3/uL 02/05/2024 2:15 PM CDT [facility] ABS. MONOCYTES 0.59 0.00 - 1.50 x10'3/uL 02/05/2024 2:15 PM CDT [facility] ABS. EOSINOPHILS 0.00 0.00 - 0.40 x10'3/uL 02/05/2024 2:15 PM CDT [facility] ABS. BASOPHILS 0.03 0.00 - 0.20 x10'3/uL 02/05/2024 2:15 PM CDT [facility] ABS. IMMATURE GRANULOCYTES 0.04(H) 0.00 - 0.03 x10'3/uL 02/05/2024 2:15 PM CDT [facility] ABS. NUCLEATED RBC'S 0.00 0.00 - 0.01 x10'3/uL 02/05/2024 2:15 PM CDT [facility] 02/05/2024 1:47 PM CDT Mike Mckenzie MD LABORATORY Final Result [facility] [address] [employer] [place] [id number], * (ABNORMAL) COMPREHENSIVE METABOLIC PANEL (02/05/2024 1:47 PM CDT) SODIUM S/P/B 135(L) 136 - 145 MMOL/L 02/05/2024 2:28 PM CDT [facility] POTASSIUM S/P/B 4.0 3.5 - 5.1 MMOL/L 02/05/2024 2:28 PM CDT [facility] CHLORIDE S/P/B 102 98 - 107 MMOL/L 02/05/2024 2:28 PM CDT [facility] CO2 24.0 21.0 - 32.0 MMOL/L 02/05/2024 2:28 PM CDT [facility] GLUCOSE 135(H) 70 - 99 MG/DL 02/05/2024 2:28 PM CDT [facility] Comment: FASTING GLUCOSE 100 TO 125 MG/DL IS CONSISTENT WITH IMPAIRED FASTING GLUCOSE. FASTING GLUCOSE >125 MG/DL IS CONSISTENT WITH DIABETES. RANDOM GLUCOSE >200 MG/DL WITH HYPERGLYCEMIC SYMPTOMS IS CONSISTENT WITH DIABETES. PER ADA GUIDELINES BUN 26(H) 6 - 24 MG/DL 02/05/2024 2:28 PM CDT [facility] CREATININE S/P/B 1.37(H) 0.70 - 1.30 MG/DL 02/05/2024 2:28 PM CDT [facility] CALCIUM S/P/B 8.7 8.4 - 10.5 MG/DL 02/05/2024 2:28 PM [facility] BILIRUBIN TOTAL S/P/B 0.9 0.2 - 1.0 MG/DL 02/05/2024 2:28 PM T [facility] Comment: THIS ASSAY IS NOT RECOMMENDED FOR PATIENTS UNDERGOING TREATMENT WITH ELTROMBOPAG DUE TO THE POTENTIAL FOR FALSELY ELEVATED RESULTS. ALKALINE PHOSPHATASE S/P/B 105 45 - 115 U/L 02/05/2024 2:28 PM T [facility] AST 27 15 - 37 U/L 02/05/2024 2:28 PM [facility] ALT 34 16 - 63 U/L 02/05/2024 2:28 PM [facility] TOTAL PROTEIN S/P/B 7.8 6.4 - 8.2 G/DL 02/05/2024 2:28 PM T [facility] ALBUMIN S/P/B 3.3(L) 3.4 - 5.0 G/DL 02/05/2024 2:28 PM [facility] ANION GAP 9.0 5.0 - 15.0 MMOL/L 02/05/2024 2:28 PM [facility] OSMOLALITY (CALC) 287 MOSM/KG 024 2:28 PM T [facility] Comment:REFERENCE RANGE NOT ESTABLISHED GFR ESTIMATE 52(L) >89 ML/MIN/1. 73 M2 02/05/2024 2:28 PM T [facility] GFR NOTES GFR REFERENCE S: 02/05/2024 2:28 PM [facility] Comment: THE ESTIMATED GFR IS [...] CDT Mike Mckenzie MD LABORATORY Final Result [facility] [address] [place] [address], documented in this encounter Visit Diagnoses Diagnosis Nausea Nausea alone Vomiting Vomiting alone COPD exacerbation ([facility]) Obstructive chronic bronchitis with exacerbation Encounter for long-term (current) use of medications Encounter for long-term (current) use of other medications documented in this encounter Care Teams Electrical And Radio Aircraft Mechanic Relationship Specialty Start Date End Date Mike Mckenzie MD [address] [place] [address] PCP - General INTERNAL MEDICINE 08/11/22 documented as of this encounter
--- OUTSIDE RECORDS SUMMARY | 2024-06-13 20:50 | XMS_ITS | Encounter Summary ---
Author Organization [facility] Address [address] [place] [address]. [place], [place] [address] [place] [address] Care Team Providers Care Mirror Fabrication Supervisor Name Role Phone Mike Duong MD Primary Care Provider [phone] Reason for Referral * Imaging (Routine) - Closed Specialty Diagnoses / Procedures Referred By Michelle loja Referred To Contact RADIOLOGY Diagnoses Cerebrovascular disease Procedures CTA HEAD+NECK iMke Duong MD [address] [place] [address] Phone: tel: fax: Referral ID Status Reason Start Date Expiration Date Visits Re quested Visits Authorized [id number] Closed 03/25/2024 03/26/2025 1 1 Reason for Visit * Imaging (Routine) - Closed Specialty Diagnoses / Procedures Referred By Michelle loja Referred To Contact RADIOLOGY Diagnoses Cerebrovascular disease Procedures CTA HEAD+NECK Mike Duong MD [address] [place] [address] Phone: tel: fax: Referral ID Status Reason Start Date Expiration Date Visits Re quested Visits Authorized [id number] Closed 03/25/2024 03/26/2025 1 1 Encounter Details Date Type Department Care Team (Late st Contact Info) Description 04/07/2024 2:30 PM CDT - 04/07/2024 11:59 PM CDT Hospital Encounter [place] [address] [facility] [place] [address] Mike Duong MD [address] [place] [address] Discharge Disposition: Home or Self [...] of the proximal major segments of the [place]. 3. Additional multifocal atherosclerotic disease elsewhere as detailed. 4. Suspicious 9 mm irregular right upper lobe nodule. Advise further evaluation with PET/CT or tissue sampling. 5. Bilateral thyroid nodules measuring up to 3 cm on the left. Could further evaluate with follow-up thyroid ultrasound. Referred By: MIKE DUONG Interpreted By: Oliverio Zarate MD, 04/08/2024 8:50 PM Narrative 04/08/2024 8:58 PM [address] [place] [address] INDICATION: Cerebrovascular disease. Episode of dizziness. EXAMINATION: [...] Procedure Note Oliverio Zarate MD - 04/08/2024 [place] [id number] [facility] [place] [address] INDICATION: Cerebrovascular disease. Episode of dizziness. EXAMINATION: [...] - 1.30 MG/DL 04/07/2024 3:18 PM CDT [facility] GFR ESTIMATE 71(L) >89 ML/MIN/1. 73 M2 04/07/2024 3:18 PM CDT [facility] GFR NOTES GFR REFERENCE S: 04/07/2024 3:18 PM CDT [facility] Comment: THE ESTIMATED GFR IS [...] CDT Mike Duong MD LABORATORY Final Result [facility] [address] [place] [address], documented in this encounter Visit Diagnoses Diagnosis [...] mLs documented in this encounter Care Teams Mirror Fabrication Supervisor Relationship Specialty Start Date End Date Mike Duong MD [address] [place] [address] PCP - General INTERNAL MEDICINE 08/11/22 documented as of this encounter
--- OUTSIDE RECORDS SUMMARY | 2024-06-13 20:50 | XMS_ITS | Encounter Summary ---
Author Organization [facility] Address [address] [place] [address]. [place] [address] [place] [address] Care Team Providers Care Rotary Slicing Machine Operator Name Role Phone Mike Duong MD Primary Care Provider [phone] Encounter Details Date Type Department Care Team (Late st Contact Info) Description 01/16/2023 10:59 AM CDT - 01/16/2023 11:59 PM CDT Hospital Encounter [facility] [address] [facility] [place] [address] Mike Duong MD [address] [place] [address] Discharge Disposition: Home or Self Care (Routine [...] (alone) documented in this encounter Care Teams Rotary Slicing Machine Operator Relationship Specialty Start Date End Date Mike Duong MD [address] [place] [address] PCP - General INTERNAL MEDICINE 08/11/22 documented as of this encounter
--- OUTSIDE RECORDS SUMMARY | 2024-06-13 20:50 | XMS_ITS | Encounter Summary ---
Author Organization [facility] Address [address] [place] [address]. [place] [address] [place] [address] Care Team Providers Care Tours Hostess Name Role Phone Mike Mckenzie MD Primary Care Provider [phone] Encounter Details Date Type Department Care Team (Late st Contact Info) Description 10/02/2022 Orders Only [facility] [address] [address] Chery Newton, [facility] [address] [place] [address] [place] [address] Social History Tobacco Use Types Packs/Day Years [...] Primary documented in this encounter Care Teams Tours Hostess Relationship Specialty Start Date End Date Mike Mckenzie MD [address] [place] [address] PCP - General INTERNAL MEDICINE 08/11/22 documented as of this encounter
--- OUTSIDE RECORDS SUMMARY | 2024-06-13 20:50 | XMS_ITS | Encounter Summary ---
Author Organization [facility] Address [address] [place] [address]. [place], [place] [address] [place] [address] Care Team Providers Care Ppap Coordinator Name Role Phone Mike Mckenzie MD Primary Care Provider [phone] Encounter Details Date Type Department Care Team [...] Coronavirus/COVID-19? No / Unsure 08/23/2022 2:25 PM ORE TRIMMER documented as of this encounter Plan of Treatment Not on file documented as of this encounter Visit Diagnoses Not on filedocumented in this encounter Care Teams Ppap Coordinator Relationship Specialty Start Date End Date Mike Mckenzie MD [address] [place] [address] PCP - General INTERNAL MEDICINE 08/11/22 documented as of this encounter
--- OUTSIDE RECORDS SUMMARY | 2024-06-13 20:50 | XMS_ITS | Encounter Summary ---
Author Organization [facility] Address [address] [place] [address]. [place] [address] [place] [address] Care Team Providers Care Safe And Vault Mechanic Name Role Phone Mike Duong MD Primary Care Provider [phone] Encounter Details Date Type Department Care Team (Late st Contact Info) Description 02/05/2024 1:09 PM CDT - 02/05/2024 11:59 PM CDT Hospital Encounter [facility] [address] [facility] [place] [address] Mike Duong MD [address] [place] [address] Discharge Disposition: Home or Self Care (Routine [...] Nausea Vomiting COPD (chronic obstructive pulmonary disease) ([facility]) documented in this encounter Results * XR [...] alone COPD (chronic obstructive pulmonary disease) (CMS/HCC [facility]) Chronic airway obstruction, not elsewhere classified documented in this encounter Care Teams Safe And Vault Mechanic Relationship Specialty Start Date End Date Mike Duong MD [address] [place] [address] PCP - General INTERNAL MEDICINE 08/11/22 documented as of this encounter
--- OUTSIDE RECORDS SUMMARY | 2024-06-13 20:50 | XMS_ITS | Encounter Summary ---
Author Organization [facility] Address [address] [place] [address]. [place], [place] [address] [place] [address] Care Team Providers Care Senior Quality Analyst Name Role Phone Mike Mckenzie MD Primary Care Provider [phone] Encounter Details Date Type Department Care Team [...] on filedocumented in this encounter Care Teams Senior Quality Analyst Relationship Specialty Start Date End Date Mike Mckenzie MD [address] [place] [address] PCP - General INTERNAL MEDICINE 08/11/22 documented as of this encounter
--- OUTSIDE RECORDS SUMMARY | 2024-06-13 20:50 | XMS_ITS | Encounter Summary ---
Author Organization [facility] Address [address] [place] [address]. [place] [address] [place] [address] Care Team Providers Care Patient Care Technician Instructor Name Role Phone Mike Mckenzie MD Primary Care Provider Encounter Details Date Type Department Care Team (Late st Contact Info) Description 09/21/2022 Orders Only [facility] [place] [id number] Zain Meraz MD [address] [place] [address] Social History Tobacco Use Types Packs/Day Years [...] Coronavirus/COVID-19? No / Unsure 08/23/2022 2:25 PM LOAN CLOSER documented as of this encounter Plan of [...] encounter documented in this encounter Care Teams Patient Care Technician Instructor Relationship Specialty Start Date End Date Mike Mckenzie MD [address] [place] [phone] PCP - General INTERNAL MEDICINE 08/11/22 documented as of this encounter
--- OUTSIDE RECORDS SUMMARY | 2024-06-13 20:50 | XMS_ITS | Encounter Summary ---
Author Organization [facility] Address [address] [place] [address]. [place] [address] [place] [address] Care Team Providers Care Program Specialist Name Role Phone Mike Mckenzie MD Primary Care Provider [phone] Reason for Visit * Reason Comments Fracture DOI: 08/09/2022 RIGH T distal radius Encounter Details Date Type Department Care Team (Late st Contact Info) Description 09/28/2022 2:45 PM CDT Office Visit [facility] [address] [place] [address] Chery Newton, [facility] [address] [place] [address] [place] [address] Fracture (DOI: 08/09/2022 RIGHT distal radius) Social [...] this encounter Progress Notes * Chery Newton, OTR REFRIGERATED CDL TRUCK DRIVER-BC - 09/28/2022 2:45 PM CDT Chief Complaint: [...] from PCP but states he is out ([place]). He also reports stiffness in RIGHT hand [...] for Visit with Imaging (RIGHT wrist). IMANI REYES documented in this encounter Plan of Treatment Not on file documented as of this encounter Visit Diagnoses Diagnosis Other closed intra-articular fracture of distal end of right radius with delayed healing, subsequent encounter- Primary documented in this encounter Care Teams Program Specialist Relationship Specialty Start Date End Date Mike Mckenzie MD [address] [place] [address] PCP - General INTERNAL MEDICINE 08/11/22 documented as of this encounter
--- OUTSIDE RECORDS SUMMARY | 2024-06-13 20:50 | XMS_ITS | Encounter Summary ---
Author Organization [facility] Address [address] [place] [address]. [place], [place] [address] [place] [address] Care Team Providers Care Surgical Physician Assistant Name Role Phone Mike Mckenzie MD Primary Care Provider [phone] Encounter Details Date Type Department Care Team (Latest Contact Info) Description 09/28/2022 2:36 PM CDT - 09/28/2022 11:59 PM CDT Hospital Encounter [facility] [address] [place] [address] Zain Meraz MD [address] [place] [address] Discharge Disposition: Home or Self Care (Routine [...] encounter documented in this encounter Care Teams Surgical Physician Assistant Relationship Specialty Start Date End Date Mike Mckenzie MD [address] [place] [address] PCP - General INTERNAL MEDICINE 08/11/22 documented as of this encounter
--- OUTSIDE RECORDS SUMMARY | 2024-06-13 20:50 | XMS_ITS | Encounter Summary ---
Author Organization [facility] Address [address] [place] [address]. [place] [address] [place] [address] Care Team Providers Care Illusionist Name Role Phone Mike Mckenzie MD Primary Care Provider [phone] Reason for Visit * Reason Comments Hip Pain Encounter Details Date Type Department Care Team (Late st Contact Info) Description 04/07/2024 2:29 PM CDT - 04/07/2024 2:35 PM CDT Emergency [facility] [address] [facility] [place] [address] Hip Pain Discharge Disposition: Home or Self [...] be sent through Care Everywhere. * Lipoma (Luxembourger) documented in this encounter Medications at Time [...] LIMB Disposition: Mike Mckenzie MD [address] [facility] [address] Schedule an appointment as soon as [...] sometime ago, was treated and admitted at [facility] for his various injuries. Today pt [...] Primary documented in this encounter Care Teams Illusionist Relationship Specialty Start Date End Date Mike Mckenzie MD [address] [place] [address] PCP - General INTERNAL MEDICINE 08/11/22 documented as of this encounter
--- OUTSIDE RECORDS SUMMARY | 2024-06-13 20:51 | XMS_ITS | Encounter Summary ---
Author Organization [facility] Address [address] [place] [address]. [place] [address] [place] [address] Care Team Providers Care Secondary Art Teacher Name Role Phone Mike Mckenzie MD Primary Care Provider [phone] Reason for Visit * Reason Comments New Patient Wrist Pain DOI 08/09/2022 RIGHT Encounter Details Date Type Department Care Team (Latest Contact Info) Description 08/16/2022 2:30 PM SONG WRITER Office Visit [facility] [address], [facility] [address] [place] [id number] Zain Meraz MD [address] [place] [address] New Patient; Wrist Pain (DOI 08/09/2022 RIGHT [...] Coronavirus/COVID-19? No / Unsure 08/23/2022 2:25 PM SONG WRITER documented as of this encounter Last Filed Vital Signs Vital Sign Reading Time Taken Comments Blood Pressure - - Pulse - - Temperature - - Respiratory Rate - - Oxygen Saturation - - Inhaled Oxygen Concentration - - Weight 80.7 kg (178 lb) 08/16/2022 2:36 PM SONG WRITER Height 167.6 cm (5' 6 ) 08/16/2022 2:36 PM SONG WRITER Body Mass Index 28.73 08/16/2022 2:36 PM SONG WRITER documented in this encounter Progress Notes * [...] and a splint. He states went to [facility] on 08/09/2022. He states went to [...] arm cast with good molding. He indicates [place] has not been effective for pain control so I switched him to Percocet. I have reviewed activity restrictions and recommended smoking cessation. He will return in a week for x-ray Follow up: Return in about 1 week (around 08/23/2022). ZAIN MERAZ MD WRITER documented in this encounter Plan of Treatment Not on file documented as of this encounter Visit Diagnoses Diagnosis Other closed intra-articular fracture of distal end of right radius, initial encounter- Primary documented in this encounter Care Teams Secondary Art Teacher Relationship Specialty Start Date End Date Mike Mckenzie MD [address] [place] [address] PCP - General INTERNAL MEDICINE 08/11/22 documented as of this encounter
--- OUTSIDE RECORDS SUMMARY | 2024-06-13 20:51 | XMS_ITS | Encounter Summary ---
Author Organization [facility] Address [address] [place] [address]. [place] [address] [place] [address] Care Team Providers Care Screw Machine Setter Name Role Phone Mike Mckenzie MD Primary Care Provider [phone] Encounter Details Date Type Department Care Team (Late st Contact Info) Description 08/11/2022 Orders Only [place] [id number] Katya Carney RN Social History Tobacco Use [...] XR WRIST RT 2V (08/16/2022 2:57 PM SIGNAL MANAGER) Anatomical Region Laterality Modality Wrist Radiographic Steph ging 08/17/2022 8:43 AM SIGNAL MANAGER Impressions 08/17/2022 8:45 AM SIGNAL MANAGER IMPRESSION: Stable alignment of distal radial fracture following splint application. Ordered By: ZAIN MERAZ Interpreted By: Jc Pickett MD, 08/17/2022 8:43 AM Narrative 08/17/2022 8:45 AM SIGNAL MANAGER Examination: Right wrist. Exam time: 1407 hours. [...] hours. Clinical history: Fracture follow-up. Comparison: 08/09/2022 ([facility]). Technique: PA and lateral views. Findings: [...] right documented in this encounter Care Teams Screw Machine Setter Relationship Specialty Start Date End Date Mike Mckenzie MD [address] [place] [phone] PCP - General INTERNAL MEDICINE 08/11/22 documented as of this encounter
--- OUTSIDE RECORDS SUMMARY | 2024-06-13 20:51 | XMS_ITS | Encounter Summary ---
Author Organization [facility] Address [address] [place] [address]. [place], [place] [address] [place] [address] Care Team Providers Care Consulting Project Director Name Role Phone Mike Mckenzie MD Primary Care Provider [phone] Encounter Details Date Type Department Care Team [...] Coronavirus/COVID-19? No / Unsure 08/16/2022 2:22 PM AIRCRAFT MAINTENANCE INSTRUCTOR documented as of this encounter Plan of Treatment Not on file documented as of this encounter Visit Diagnoses Not on filedocumented in this encounter Care Teams Consulting Project Director Relationship Specialty Start Date End Date Mike Mckenzie MD [address] [place] [address] PCP - General INTERNAL MEDICINE 08/11/22 documented as of this encounter
--- OUTSIDE RECORDS SUMMARY | 2024-06-13 20:51 | XMS_ITS | Encounter Summary ---
Author Organization [facility] Address [address] [place] [address]. [place] [address] [place] [address] Care Team Providers Care Pan Pusher Name Role Phone Unavailable Primary Care Provider Unavailabl e Encounter Details Date Type Department Care Team (Late st Contact Info) Description 04/09/2010 Abstract [facility] [address] [place] [address] Mike Mckenzie MD [address] [place] [address] Social History Tobacco Use Types [...]
--- OUTSIDE RECORDS SUMMARY | 2024-06-13 20:51 | XMS_ITS | Encounter Summary ---
Author Organization [facility] Address [address] [place] [address]. [place] [address] [place] [address] Care Team Providers Care Planning Assistant Name Role Phone Mike Mckenzie MD Primary Care Provider [phone] Encounter Details Date Type Department Care Team (Late st Contact Info) Description 08/17/2022 Orders Only [facility] [address] [address] Zain Meraz MD [address] [place] [address] Social History Tobacco Use Types Packs/Day Years [...] Coronavirus/COVID-19? No / Unsure 08/16/2022 2:22 PM GAS MAKER HELPER documented as of this encounter Plan of Treatment Not on file documented as of this encounter Results * XR WRIST RT 2V (08/23/2022 2:33 PM GAS MAKER HELPER) Anatomical Region Laterality Modality Wrist Radiographic Steph ging 08/23/2022 2:55 PM GAS MAKER HELPER Impressions 08/23/2022 2:57 PM GAS MAKER HELPER IMPRESSION: 1) Impacted distal right radius fracture with mild residual deformity similar to previous study. Ordered By: ZAIN MERAZ Interpreted By: Seymour Gaona MD, 08/23/2022 2:55 PM Narrative 08/23/2022 2:57 PM GAS MAKER HELPER Examination: XR WRIST RT 2V Exam time: [...] encounter documented in this encounter Care Teams Planning Assistant Relationship Specialty Start Date End Date Mike Mckenzie MD [address] [place] [address] PCP - General INTERNAL MEDICINE 08/11/22 documented as of this encounter
--- OUTSIDE RECORDS SUMMARY | 2024-06-13 20:51 | XMS_ITS | Encounter Summary ---
Author Organization [facility] Address [address] [place] [address]. [place] [address] [place] [address] Care Team Providers Care Wellness Coach Name Role Phone Unavailable Primary Care Provider Unavailabl e Encounter Details Date Type Department Care Team (Late st Contact Info) Description 03/09/2006 Abstract [facility] [address] [place] [address] , Emily Quan MD Social History Tobacco [...]
--- OUTSIDE RECORDS SUMMARY | 2024-06-13 20:51 | XMS_ITS | Encounter Summary ---
Author Organization [facility] Address [address] [place] [address]. [place] [address] [place] [address] Care Team Providers Care Immunology Specialist Name Role Phone Mike Mckenzie MD Primary Care Provider [phone] Encounter Details Date Type Department Care Team (Latest Contact Info) Description 08/16/2022 2:25 PM EDUCATION DIRECTOR - 08/16/2022 11:59 PM EDUCATION DIRECTOR Hospital Encounter [facility] [address] [place] [address] Zain Meraz MD [address] [place] [address] Discharge Disposition: Home or Self Care (Routine [...] Coronavirus/COVID-19? No / Unsure 08/16/2022 2:22 PM EDUCATION DIRECTOR documented as of this encounter Medications at [...] WRIST RT 2V Routine 08/16/2022 2:57 PM EDUCATION DIRECTOR Wrist pain, acute, right documented in this encounter Results * XR WRIST RT 2V (08/16/2022 2:57 PM EDUCATION DIRECTOR) Anatomical Region Laterality Modality Wrist Radiographic Steph ging 08/17/2022 8:43 AM EDUCATION DIRECTOR Impressions 08/17/2022 8:45 AM EDUCATION DIRECTOR IMPRESSION: Stable alignment of distal radial fracture following splint application. Ordered By: ZAIN MERAZ Interpreted By: Jc Pickett MD, 08/17/2022 8:43 AM Narrative 08/17/2022 8:45 AM EDUCATION DIRECTOR Examination: Right wrist. Exam time: 1407 hours. Clinical history: Fracture follow-up. Comparison: 08/09/2022 ([facility]). Technique: PA and lateral views. Findings: A [...] hours. Clinical history: Fracture follow-up. Comparison: 08/09/2022 ([facility]). Technique: PA and lateral views. Findings: [...] right documented in this encounter Care Teams Immunology Specialist Relationship Specialty Start Date End Date Mike Mckenzie MD [address] [place] [address] PCP - General INTERNAL MEDICINE 08/11/22 documented as of this encounter
--- OUTSIDE RECORDS SUMMARY | 2024-06-13 20:51 | XMS_ITS | Encounter Summary ---
Author Organization [facility] Address [address] [place] [address]. [place] [address] [place] [address] Care Team Providers Care Screw Eye Assembler Name Role Phone Unavailable Primary Care Provider Unavailabl e Encounter Details Date Type Department Care Team (Late st Contact Info) Description 03/10/2010 Abstract [facility] [address] [place] [address] Mike Mckenzie MD [address] [place] [address] Social History Tobacco Use Types [...]
--- OUTSIDE RECORDS SUMMARY | 2024-06-13 20:51 | XMS_ITS | Encounter Summary ---
Author Organization [facility] Address [address] [place] [address]. [place] [address] [place] [address] Care Team Providers Care Flexible Machining System Machinist Name Role Phone Mike Mckenzie MD Primary Care Provider [phone] Reason for Visit * Reason Comments Fracture CLOSED FRACTURE OF D ISTAL END OF RIGHT RADIUS Encounter Details Date Type Department Care Team (Latest Contact Info) Description 08/23/2022 2:30 PM WATER TAXI BOAT MATE Office Visit [facility] [address] [place] [phone] Zain Meraz MD [address] [place] [address] Fracture (CLOSED FRACTURE OF DISTAL END OF [...] Coronavirus/COVID-19? No / Unsure 08/23/2022 2:25 PM WATER TAXI BOAT MATE documented as of this encounter Last Filed Vital Signs Vital Sign Reading Time Taken Comments Blood Pressure - - Pulse - - Temperature - - Respiratory Rate - - Oxygen Saturation - - Inhaled Oxygen Concentration - - Weight 80.7 kg (178 lb) 08/23/2022 2:30 PM WATER TAXI BOAT MATE Height 167.6 cm (5' 6 ) 08/23/2022 2:30 PM WATER TAXI BOAT MATE Body Mass Index 28.73 08/23/2022 2:30 PM WATER TAXI BOAT MATE documented in this encounter Progress Notes * [...] 4 weeks (around 09/20/2022). ZAIN MERAZ MD R TAXI BOAT MATE documented in this encounter Plan of Treatment Not on file documented as of this encounter Visit Diagnoses Diagnosis Other closed intra-articular fracture of distal end of right radius, initial encounter- Primary documented in this encounter Care Teams Flexible Machining System Machinist Relationship Specialty Start Date End Date Mike Mckenzie MD [address] [place] [address] PCP - General INTERNAL MEDICINE 08/11/22 documented as of this encounter
--- OUTSIDE RECORDS SUMMARY | 2024-06-13 20:54 | XMS_ITS | Encounter Summary ---
Author Organization [facility] Care Team Providers Care Composite Laminator Name Role Phone Mike Mckenzie MD Primary Care Provider [phone] Levi Nguyễn MD Unavailable [phone] Encounter Details Date Type Department Care Team [...] on filedocumented in this encounter Care Teams Composite Laminator Relationship Specialty Start Date End Date Mike Mckenzie MD [address] [place] [address] PCP - General Internal Medicine 11/30/21 Levi Nguyễn MD [address] [address] Consulting Physician Urology 03/15/22 documented as of this encounter
--- OUTSIDE RECORDS SUMMARY | 2024-06-13 20:54 | XMS_ITS | Clinical Summary ---
Author Organization [facility] Address [address] [place] [address] Phone Care Team Providers Care Volunteer Recruitment Coordinator Name Role Phone Mike Mckenzie MD Primary Care Provider [phone] Levi Nguyễn MD Unavailable [phone] Allergies Active Allergy Reactions Criticality Noted [...] to complete this topic Insurance MEDICARE C [facility] MMAI [place] [id number] Advance Directives Documents on File Type Date Recorded Patient Commercial Project Manager Expl anation Other Advance Directive 03/20/2022 9:52 AM PROCEDUR CONSENT/URO Care Teams Volunteer Recruitment Coordinator Relationship Specialty Start Date End Date Mike Mckenzie MD [address] [place] [address] PCP - General Internal Medicine 11/30/21 Levi Nguyễn MD [address] [address] Consulting Physician Urology 03/15/22
--- OUTSIDE RECORDS SUMMARY | 2024-06-13 20:54 | XMS_ITS | Encounter Summary ---
Author Organization [facility] Care Team Providers Care Link Trainer Teacher Name Role Phone Mike Mckenzie MD Primary Care Provider [phone] Encounter Details Date Type Department Care Team [...] on filedocumented in this encounter Care Teams Link Trainer Teacher Relationship Specialty Start Date End Date Mike Mckenzie MD [address] [place] [address] PCP - General Internal Medicine 11/30/21 documented as of this encounter
--- OUTSIDE RECORDS SUMMARY | 2024-06-13 20:54 | XMS_ITS | Encounter Summary ---
Author Organization [facility] Address [address] [facility] [place] [address] Phone Care Team Providers Care Tire Mold Engraver Name Role Phone Mike Mckenzie MD Primary Care Provider [phone] Levi Nguyễn MD Unavailable [phone] Reason for Visit * Reason Comments Blood in Urine Cystoscopy Encounter Details Date Type Department Care Team (Late st Contact Info) Description 03/17/2022 10:00 AM CDT Procedure Visit [facility] [address] [place] [address] Levi Nguyễn MD [address] [facility] [address] [place] [address] Gross hematuria (Primary Dx) Discharge Disposition: Discharged [...] including pre-visit review of separately obtained history, [id number] interaction performing medically appropriate physical exam, patientcounseling/education, [...] was administered transurethrally. A well lubricated 16 [place] flexible cystoscope was introduced transurethrally. At the [...] was administered transurethrally. ??A well lubricated 16 [place] flexible cystoscope was introduced transurethrally. ??At the [...] Plan: ??See progress note Levi Parra MD [place] - SURGERY Final Result documented in this encounter Visit Diagnoses Diagnosis Gross hematuria- Primary documented in this encounter Care Teams Tire Mold Engraver Relationship Specialty Start Date End Date Mike Mckenzie MD [address] [place], [place] [phone] PCP - General Internal Medicine 11/30/21 Levi Nguyễn MD [address] [address] Consulting Physician Urology 03/15/22 documented as of this encounter
--- OUTSIDE RECORDS SUMMARY | 2024-06-13 20:54 | XMS_ITS | Encounter Summary ---
Author Organization [facility] Address [address] [facility] [place] [address] Phone Care Team Providers Care Foundry Tender Name Role Phone Mike Duong MD Primary Care Provider [phone] Reason for Referral * Radiology Services (Routine) - Closed Specialty Diagnoses / Procedures Referred By Michelle loja Referred To Contact Radiology Diagnoses Gross hematuria Procedures CT UROGRAPHY WO/W CONTRAST Levi Gupta MD [address] [place] [address] Phone: tel: fax: Referral ID Status Reason Start Date Expiration Date Visits Re quested Visits Authorized [id number] Closed 03/03/2022 1 1 Reason for Visit * Reason Comments Abnormal Study/Test Result ELEVATED PSA * Consult, Test & Initiate Treatment (Routine) - Closed Specialty Diagnoses / Procedures Referred By Michelle loja Referred To Contact Urology Diagnoses Elevated PSA Mike Duong MD [address] [place] [address] Phone: tel: fax: [facility] [address] [place] [address] Phone: tel: fax: Referral ID Status Reason Start Date Expiration Date Visits Re quested Visits Authorized [id number] Closed 1 1 Encounter Details Date Type Department Care Team (Late st Contact Info) Description 03/03/2022 10:30 AM CDT Office Visit [facility] [address] [place] [address] Levi Gupta MD [address] [facility] [address] [place] [address] Elevated PSA (Primary Dx); Gross hematuria Discharge [...] Clear Urine 03/03/2022 10:3 0 AM CDT [facility] Daniel Gupta MD POINT OF CARE TESTING (MANUAL) Final Result documented in this encounter Visit Diagnoses Diagnosis Elevated PSA- Primary Elevated prostate specific antigen (PSA) Gross hematuria documented in this encounter Care Teams Foundry Tender Relationship Specialty Start Date End Date Mike Duong MD [address] [place], [place] [id number] PCP - General Internal Medicine 11/30/21 documented as of this encounter
== END 2024-06-08 21:40 | disposition home or self-care (01) ==
PROVIDERS: Emergency Provider Emergency Medicine; PCP Internal Medicine
DX: M25.552 Pain in left hip (principal); M25.562 Pain in left knee; F17.200 Nicotine dependence, unspecified, uncomplicated; Z79.899 Other long term (current) drug therapy
CPT/HCPCS: 73502; 73562; 99284

== ENCOUNTER 2025-01-13 11:51 | Inpatient (IN) | payer BC, SELFPAY ==
[2025-01-13] VITALS (11 sets, daily range): BP systolic 114–164; BP diastolic 66–117; PULSE 48–86; RESP 12–28; TEMP 36.4–36.5; O2SAT 24–98; BMI 24.9
--- NOTE | 2025-01-13 | ECHO_ITS ---
Patient Info Name: Javier Greene Age: 84 years : 1940 Gender: Male Ht: 69 in Wt: 158 lbs BSA: 1.87 m2 HR: 73 bpm BP: 151 / 84 mmHg Heart Rhythm: Sinus Rhythm Technical Quality: Fair Exam Date: 01/13/2025 3:02 PM Patient Status: unknown Admit Date: 01/13/2025 Exam Type: CA echo dop color flow w con Complete two-dimensional, color flow and Doppler transthoracic echocardiogram is performed with contrast to opacify the left ventricle and to improve the deliniation of the left ventricle endocardial borders. Staff Referring Physician: Jessica Ramon Civil Process Server: Milena Esparza Attending Provider: Lubna Jones MD Contrast/Agitated Saline Contrast/Ag. Saline: Definity Amount: 2.00 ml Administered By: Milena Esparza Existing IV Access: Yes IV Access Condition: patent with no signs of infiltration Summary 1. Left ventricular chamber dimension is mildly enlarged. 2. Left ventricular systolic function is severely reduced, estimated at 25-30. 3. There is no increased left ventricular wall thickness. 4. The left ventricular diastolic function is abnormal. 5. The apical lateral wall, apical cap, and mid anteroseptal are akinetic. 6. The inferior wall, anterior wall, inferoseptal wall, and basal anteroseptal are hypokinetic. 7. Left atrial chamber dimension is mildly enlarged. 8. There is moderate aortic valve stenosis. 9. There is mild aortic valve calcification. 10. There is mild to moderate mitral valve regurgitation. 11. There is mild tricuspid valve regurgitation. 12. Moderate pulmonary hypertension, estimated pulmonary arterial systolic pressure is 46 mmHg. 13. There is mild pulmonic regurgitation. Left Ventricle Left ventricular chamber dimension is mildly enlarged. Left ventricular systolic function is severely reduced, estimated at 25-30. There is no increased left ventricular wall thickness. The left ventricular diastolic function is abnormal. The apical lateral wall, apical cap, and mid anteroseptal are akinetic. The inferior wall, anterior wall, inferoseptal wall, and basal anteroseptal are hypokinetic. All other paige appear normal. Right Ventricle Right ventricular chamber dimension is normal. Right ventricular systolic function is normal. Left Atria Left atrial chamber dimension is mildly enlarged. Right Atria Right atrial chamber dimension is normal. Atrial Septum Intact interatrial septum visualized by color flow imaging. Aortic Valve The aortic valve is probable trileaflet. There is moderate aortic valve stenosis. There is trace aortic valve regurgitation. There is mild aortic valve calcification. Pulmonic Valve The pulmonic valve is normal. There is no pulmonic valve stenosis. There is mild pulmonic regurgitation. Mitral Valve The mitral valve has normal leaflets. There is no mitral valve stenosis. There is mild to moderate mitral valve regurgitation. Tricuspid Valve The tricuspid valve leaflets are normal. There is no significant tricuspid valve stenosis. There is mild tricuspid valve regurgitation. Moderate pulmonary hypertension, estimated pulmonary arterial systolic pressure is 46 mmHg. Pericardium/Pleural The pericardium appears normal. There is no pericardial effusion. Inferior Vena Cava Normal inferior vena cava with >50% collapse upon inspiration consistent with normal right atrial pressure, 5 mmHg. Aorta The aortic root size at the sinus of Valsalva is normal. Left Ventricular Outflow Tract Name Value Normal LVOT 2D LVOT Diameter 2.0 cm LVOT Doppler LVOT Peak Velocity 76 cm/s LVOT Peak Gradient 2 mmHg LVOT Mean Gradient 1 mmHg LVOT VTI 18 cm LVOT Stroke Volume 56 ml LVOT CO 4.1 l/min LVOT CI 2.2 l/min/m2 Pulmonic Valve Name Value Normal RVOT Doppler RVOT Peak Velocity 56 cm/s RVOT Peak Gradient 1 mmHg PV Doppler PV Peak Velocity 143 cm/s PV Peak Gradient 8 mmHg Mitral Valve Name Value Normal MV Diastolic Function MV E Peak Velocity 89 cm/s MV A Peak Velocity 87 cm/s MV E/A 1.0 MV Decel Time (PW) 125 ms MV Annular TDI MV E/e' (Septal) 18.0 MV E/e' (Lateral) 12.3 MV E/e' (Average) 15.2 Tricuspid Valve Name Value Normal TV Regurgitation Doppler TR Peak Velocity 320 cm/s TR Peak Gradient 41 mmHg Estimated PAP/RSVP RA Pressure 5 mmHg <=5 PA Systolic Pressure 46 mmHg <36 RV Systolic Pressure 46 mmHg <36 Aortic Valve Name Value Normal AV Doppler AV Peak Velocity 175 cm/s AV Peak Gradient 12 mmHg AV Area (Cont Eq Michael) 1.3 cm2 AV DI (Michael) 0.44 AV Regurgitation 2D LVOT Area 3.1 cm2 Ventricles Name Value Normal LV Dimensions 2D/MM IVS Diastolic Thickness (2D) 0.6 cm 0.6-1.0 LVID Diastole (2D) 4.8 cm 4.2-5.8 LVIW Diastolic Thickness (2D) 0.7 cm 0.6-1.0 LVID Systole (2D) 3.7 cm 2.5-4.0 LVOT Diameter 2.0 cm LV Mass (2D Cubed) 93.31 g 88.00-224.00 LV Mass Index (2D Cubed) 50 g/m2 49-115 Relative Wall Thickness (2D) 0.28 <=0.42 LV Fractional Shortening/Ejection Fraction 2D/MM LV Fractional Shortening (2D) 22 % 25-43 LV EF (2D Teichholz) 44 % LV Diastolic Volume (4C MOD) 100 ml LV EF (4C MOD) 33 % LV Diastolic Volume (2C MOD) 118 ml LV EF (2C MOD) 37 % LV Diastolic Volume (BP MOD) 111 ml 62-150 LV Diastolic Volume Index (BP MOD) 59 ml/m2 34-74 LV Systolic Volume (BP MOD) 73 ml 21-61 LV Systolic Volume Index (BP MOD) 39 ml/m2 11-31 LV EF (BP MOD) 34 % 52-72 LV Diastolic Length (4C) 7.4 cm LV Systolic Length (4C) 7.0 cm LV Stroke Volume (4C MOD) 33 ml Atria Name Value Normal LA Dimensions LA Volume (4C A-L) 77 ml LA Volume (BP A-L) 47 ml RA Dimensions RA Systolic Major [place] Length (4C) 4.7 cm 2.1-2.7 RA Area (4C) 11.5 cm2 <=18.0 Wall Motion Scoring Wall Motion Scoring Index: 1.94 Report Signatures
--- NOTE | 2025-01-13 11:53 | ECG_ITS ---
Test Date: 2025-01-13 11:53:17 Measurements Intervals [place] Rate: 82 P: 81 [place]: 185 QRS: -46 QRSD: 105 T: 92 QT: 361 QTc: 422 Interpretive Statements SINUS RHYTHM LEFT AXIS DEVIATION [QRS AXIS < -30] ST ELEVATIONS IN AVR, V1, V2, AVL WITH RECIPROCAL INFERIOR ST DEPRESSIONS ACUTE [place] Compared to ECG 03/18/2024 06:34:54 ACUTE [place] NOW PRESENT Electronically Signed On 01-13-2025 17:04:36 CDT by Lubna Jones M.D.
--- NOTE | 2025-01-13 11:56 | ED.CHESTPAIN ---
HPI - Chest Pain General Chief Complaint: Chest Pain Stated Complaint: STEMI Source: patient and EMS Mode of arrival: EMS Limitations: no limitations History of Present Illness HPI narrative: Patient presents a STEMI activation via EMS. It is reported that 30 minutes prior to EMS arrival patient developed left-sided intense chest pain (approximately 1 hour prior to arrival to hospital). He is experiencing numbness in bilateral arms. This is associated shortness of breath. He states he has had subjective fevers but no chills. He has also had cough. He is not anticoagulation. He received 2 nitroglycerin via EMS. Patient had stated he had an allergy to aspirin for this reason EMS called their medical control (not our facility) who confirmed 180 Brilinta could be given and it was. Patient's pain was 10 out of 10 in severity initially, 4/10 severity after EMS interventions. He was feeling nauseated so received 4 IV Zofran in by EMS. He was placed oxygen for comfort. He had not desaturated and does not wear oxygen at baseline. 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 Has a history lung cancer. Cardiac risk factors HTN: + HLD: + DM: No Obese: No by reported calculations Smoker: Yes Personal history TX/TIA/CVA: No Fam Hx TX in first degree relative <65yo: No Related Data Home Medications ?Medication ?Instructions ?Recorded ?Confirmed ?Last Taken ?Type montelukast 10 mg tablet 10 mg PO DAILY 02/19/22 01/13/25 Unknown History verapamil 120 mg tablet,extended 120 mg PO HS 02/19/22 01/13/25 Unknown History release bupropion HCl 150 mg tablet,12 hr 150 mg PO Q12H 01/13/25 01/13/25 Unknown History sustained-release famotidine 20 mg tablet 20 mg PO BID 01/13/25 01/13/25 Unknown History lisinopril 10 mg tablet 10 mg PO DAILY 01/13/25 01/13/25 Unknown History omeprazole 40 mg capsule,delayed 40 mg PO DAILY 01/13/25 01/13/25 Unknown History release tamsulosin 0.4 mg capsule 0.4 mg PO DAILY 01/13/25 01/13/25 Unknown History tiotropium bromide 2.5 2 puff inhalation DAILY 01/13/25 01/13/25 Unknown History mcg/actuation mist for inhalation (Spiriva Respimat) Allergies Allergy/AdvReac Type Severity Reaction Status Date / Time aspirin Allergy Mild Rash Verified 06/08/24 18:30 Contrast Media Allergy Mild Confusion Uncoded 06/08/24 18:30 [facility] Past Medical History Medical History Smoker HLD (hyperlipidemia) Hypertension Lung cancer Pneumonia Gastroenteritis Renal calculus Family History Family History (Updated 01/13/25 @ 15:16 by Isi Collier RN) Mother Cancer Social History Social History Smoking packs per day: 0 Smoking cigarettes per day: 0.0 Years smoked: 65 Smoking pack-years: 0.00 Smoking status: Light tobacco smoker Tobacco type: cigarettes Second hand tobacco smoke exposure: No Additional smoking assessment comments: Current smoker Alcohol intake: former Substance use: never Substance use type: does not use Do You Feel Safe in your Home?: Yes Lack of Transportation: No Lack of Food: Never True Current Housing: I Have Housing Concerned About Future Housing: No Difficulty Paying Gas/Electric Bills: No Difficulty Paying for Meds: No Currently Unemployed: No Education: Grade School Difficulty w/ Childcare or Family Care: No Living arrangements: with friend(s) Spiritual care concerns: No Exam Narrative: GENERAL: Well-appearing, well-nourished, in mild to moderate acute distress. HEAD: Normocephalic, atraumatic. EYES: Non injected, non icteric ENT: Nares clear, no rhinorrhea or epistaxis. Gross auditory acuity intact. NECK: Supple. No meningismus. CHEST: Speaking in full sentences. No respiratory distress. HEART: Regular rate and rhythm. . ABDOMEN: Soft, nondistended. No rigidity or guarding. Not peritoneal EXTREMITIES: Normal range of motion. SKIN: Warm, dry, no rash. NEURO: No focal deficits. Alert and oriented. Answering questions. Following commands. Normal speech without aphasia or dysarthria. PSYCH: Normal mood and affect. Course Vital Signs Vital signs: Vital Signs Temperature 97.6 F 01/13/25 11:49 Pulse Rate 86 01/13/25 11:49 Respiratory Rate 18 01/13/25 11:49 Blood Pressure 114/70 01/13/25 11:49 Pulse Oximetry 95 01/13/25 11:49 Oxygen Delivery Room Air 01/13/25 11:49 Temperature 97.5 F L 01/13/25 15:47 Pulse Rate 63 01/13/25 16:04 Respiratory Rate 19 01/13/25 16:04 Blood Pressure 145/96 H 01/13/25 16:04 Pulse Oximetry 96 01/13/25 16:04 Oxygen Delivery Room Air 01/13/25 13:33 MDM - Chest Pain MDM Narrative Medical decision making narrative: This is an 84-year-old male presenting with chest pain that started 30 min prior to EMS arrival (1 hr prior to arrival to hospital). Associated with numbness in bilateral arms. EMS activated STEMI from the field based on the appearance of pre-hospital EKG which has elevations in leads V1 and V2. In the emergency department he is afebrile vital signs within normal limits HEART SCORE History 2 highly suspicious 1 moderately suspicious 0 slightly suspicious History score [address] depression/elevation not due to LBBB, LVH, or digoxin [address] depression but LBBB, LVH, nonspecific repolarization changes 0 normal ECG score 2 Age 2 >/= 65 1 45-64 0 <45 Age score 2 Risk factors (HTN, hypercholesterolemia, DM, obesity with BMI >30, current smoker or cessation </=3mo), positive fam hx with parent or sibling with CVD before age 65, atherosclerotic disease (prior TX, PCI/CABG, CVA/TIA, or peripheral arterial disease) 2 >/= 3 risk factors or history of atherosclerotic dz 1 - 1-2 risk factors 0 no known risk factors Risk factor score 2 Initial Troponin 2 >3 times normal limit 1 1-3 times normal limit 0 less than or equal to normal limit Troponin score 1 Total HEART Score 9. Initial EKG obtained in the ER is also concerning for STEMI. 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 Jones. Patient has anemia. Per review of EMR his hemoglobin has been variable at times elevated even. == Critical Care: 1 or more vital organ systems impaired with a high probability of imminent or life-threatening deterioration in the patient's condition requiring frequent personal assessment and manipulation of the patient's condition. This included time spent evaluating the patient, speaking with EMS pre-hospital personnel and family, reviewing/interpreting laboratory/imaging studies, discussing the case with consultants or admitting teams, retrieving data and reviewing charts, monitoring for decompensation, documenting the visit, and performing bundled procedures exclusive of separately billed procedures. Differential Diagnosis Differential diagnosis: Likely stable angina, unstable angina pectoris, atypical chest pain, st elevation myocardial infarction, chest pain, biliary colic and other (aortic dissection possible) Lab Data Attestation: I reviewed the patient's lab results. Lab results narrative: Normal chemistry. No leukocytosis 01/13/25 11:56 01/13/25 11:56 Labs: Lab Results 01/13/25 Range/Units 11:56 WBC 8.0 (4.5-10.0) K/mm3 RBC 4.42 L (4.6-6.20) M/mm3 Hgb 13.1 L (14.0-18.0) g/dL Hct 39.3 L (42.0-52.0) % MCV 88.9 (80-100) fl MCH 29.6 (26-34) pg MCHC 33.3 (32-36) g/dl RDW 14.8 H (11.5-14.5) % Plt Count 301 (150-375) k/mm3 MPV 10.8 H (7.4-10.4) fl Immature Gran % (Auto) 0.4 (0-0.5) % Neut % (Auto) 66.5 (45.5-73.1) % Lymph % (Auto) 18.1 L (18.3-44.2) % Crenshaw % (Auto) 11.6 H (2.6-8.5) % Eos % (Auto) 2.8 (0-4.4) % Baso % (Auto) 0.6 (0.2-1.2) % Lymph # (Auto) 1.44 (0.9-3.2) K/mm3 Crenshaw # (Auto) 0.9 H (0.1-0.6) K/mm3 Eos # (Auto) 0.2 (0-0.3) K/mm3 Baso # (Auto) 0.1 (0.0-0.1) K/mm3 Abs Immat Gran (auto) 0.03 (0.00-0.031) K/mm3 Absolute Neuts (auto) 5.3 (1.3-6.7) K/mm3 Absolute Nucleated RBC 0.000 (0.0-0.012) K/mm3 Nucleated RBC % 0.0 (0.0-0.2) % PT 15.4 H (11.1-14.7) Seconds INR 1.2 APTT 32.1 (22.3-36.8) Seconds Sodium 137 (137-145) mmol/L Potassium 4.2 (3.4-5.0) mmol/L Chloride 106 (98-107) mmol/L Carbon Dioxide 22 (22-30) mmol/L Anion Gap 9 (4-12) mmol/L BUN 19 (9-20) mg/dL Creatinine 1.07 (0.7-1.3) mg/dL Estim Creat Clear Calc 46 ml/min Estimated GFR > 60 (59 - ) Glucose 107 (65-110) mg/dL Calcium 8.8 (8.4-10.2) mg/dL Total Bilirubin 0.5 (0.2-1.3) mg/dL AST 23 (17-59) U/L ALT 14 (6-50) U/L Alkaline Phosphatase 93 (38-126) U/L Troponin I 0.067 H* (0.000-0.034) ng/mL Total Protein 7.2 (6.3-8.2) g/dL Albumin 3.8 (3.5-5.1) g/dL Triglycerides 77 (<150) mg/dL Cholesterol 190 (0-200) mg/dL LDL Cholesterol Direct 117 mg/dL HDL Direct 36 mg/dL Blood Type O Positive Antibody Screen Negative ECG Data EKG #1: Attestation: I personally reviewed and interpreted this ECG as follows: ECG completion date: 01/13/25 ECG completion time: 11:53 Interpretation: Normal sinus rhythm at a rate of 82 beats per minute. MO interval 185. QRS 105. QT/QTC 361/399. Good R-wave progression across the precordial leads. Patient has ST elevation in leads V1 and V2. Left axis deviation (QRS is positive with dominant R wave in Lead I; QRS is negative with dominant S wave in leads II, III, and aVF). He has ST depressions in inferior leads 2 3 and AVF. T-wave inversions in inferior leads are precordial leads. Critical Care Time Critical Care Time Critical Care Time: Yes Total Critical Care Time: 20 Discharge Plan Discharge Clinical Impression: ST elevation [place] (STEMI), Anemia, Elevated troponin Patient Disposition: Still a Patient Condition: Serious
--- OUTSIDE RECORDS SUMMARY | 2025-01-13 11:58 | XMS_ITS | Clinical Summary ---
Author Organization [facility] Address [address] [place] [address] Phone Care Team Providers Care Hospice Social Worker Name Role Phone Mike Mckenzie MD Primary Care Provider [phone] Levi Nguyễn MD Unavailable [phone] Allergies Active Allergy Reactions Criticality Noted Date [...] 79 03/17/2022 9:59 AM CDT Temperature 36.6 C (97.8 F) 03/17/2022 9:59 AM CDT Respiratory Rate 20 03/17/2022 9:59 AM CDT Oxygen Saturation 96% 03/17/2022 9:59 AM CDT Inhaled Oxygen Concentration - - Weight 83.9 kg (185 lb) 03/17/2022 9:59 AM CDT Height 165.1 cm (5' 5) 03/17/2022 9:59 AM CDT Body Mass Index 30.79 03/17/2022 9:59 AM CDT Plan of Treatment Health Maintenance Due Date Last Done Comments Hepatitis C Virus (HCV) Screening 1940 TdaP Immunization 1940 Zoster Immunization (1 of 2) 1991 Respiratory Syncytial Virus (RSV) Immunization (Adult) (1 - 1-dose 75+ series) 02/19/2016 SARS-COV-2 Immunization ( season) 2024 09/24/2020, 08/27/2020 Influenza Immunization (#1) 02/23/202503/26, 04/02/2020, 05/09/2019, Additional history exists Pneumococcal Immunization (50+ years) Completed 05/03/2016, 04/12/2015, 04/06/2008 Hepatitis B Immunization Aged Out No longer eligible based on patient's age to complete this topic Human Papillomavirus (HPV) Immunization Aged Out No longer eligible based on patient's age to complete this topic Meningococcal Immunization (ACWY) Aged Out No longer eligible based on patient's age to complete this topic Rotavirus Immunization Aged Out No lo nger eligible based on patient's age to complete this topic Insurance [place] [id number] Advance Directives Documents on File Type Date Recorded Patient Specialist Employee Labor Relations Expl anation Other Advance Directive 03/20/2022 9:52 AM PROCEDUR CONSENT/URO Care Teams Hospice Social Worker Relationship Specialty Start Date End Date Mike Mckenzie MD [address] [place] [address] PCP - General Internal Medicine 11/30/21 Levi Nguyễn MD [address] [address] Consulting Physician Urology 03/15/22
--- OUTSIDE RECORDS SUMMARY | 2025-01-13 11:58 | XMS_ITS | Continuity of Care Document ---
Author Organization [facility] Address [address] [place] [address] Phone Care Team Providers Care Film Sound Coordinator Name Role Phone Josh Modi Unavailable Unavailable Advance Directives Directive Yes / No Effective Date File Name No Information Encounters Encounter Description Practice Location Reason(s) For Visit Diagnoses Date Provider Providers Copied on Encounter [facility], [address], [place], [place], [id number], [place] tel:[phone] [facility] No Information [address] , [address], [place], [address], [place]. tel:[phone] Family History Family Member Type Diagnosis Age At Onset No Information Payers Payer name Insurance type Covered libertarian ID Authoriza tion(s) [facility] [id number] Social History Type Description Quantity Date Captured Comments Sex Male Smoking Status No Information Chief Complaint And Reason For Visit No Information Reason For Referral Reason For Referral No Information History Of Present Illness Encounter Date Complaint History Of Prese nt Illness No Information Functional Status Date Functional Assessmen t No Information Instructions Date Instruction Additional Infor mation No Information Assessments Type Assessment Date No Information Patient Care Teams Name Effective Dates (start - stop) Status Members No Information
--- OUTSIDE RECORDS SUMMARY | 2025-01-13 12:01 | XMS_ITS | Continuity of Care Document ---
Author Organization [facility] Address [address] [place] [address] Phone Care Team Providers Care Buccaro Name Role Phone Josh Modi Unavailable Unavailable Advance Directives Directive Yes / No Effective Date File Name No Information Encounters Encounter Description Practice Location Reason(s) For Visit Diagnoses Date Provider Providers Copied on Encounter [facility], [address], [place], [place], [id number], [place] tel:[phone] [facility] No Information [address] , [address], [place], [address], [place]. tel:[phone] Family History Family Member Type Diagnosis Age At Onset No Information Payers Payer name Insurance type Covered democrat ID Authoriza tion(s) Medicaid [facility] [id number] Social History Type Description Quantity Date Captured [...]
[2025-01-13 12:02] LABS: Hematocrit 39.3 % (42.0-52.0); Hemoglobin 13.1 g/dL (14.0-18.0); Immature Granulocyte Percent A 0.4 % (0-0.5); Lymphocytes Absolute Auto 1.44 K/mm3 (0.9-3.2); Mean Corpuscular HGB Conc 33.3 g/dl (32-36); Mean Corpuscular Hemoglobin 29.6 pg (26-34); Mean Corpuscular Volume 88.9 fl (80-100); Nucleated Red Blood Cells Absolute Auto 0.000 K/mm3 (0.0-0.012); Nucleated Red Blood Cells Perc 0.0 % (0.0-0.2); Platelet Count Result 301 k/mm3 (150-375); Red Blood Count 4.42 M/mm3 (4.6-6.20); White Blood Count 8.0 K/mm3 (4.5-10.0)
[2025-01-13 12:17] LABS: INR 1.2; Prothrombin Time 15.4 Seconds (11.1-14.7)
[2025-01-13 12:18] LABS: Partial Thromboplastin Time 32.1 Seconds (22.3-36.8)
[2025-01-13 12:31] LABS: Alanine Aminotransferase 14 U/L (6-50); Albumin Level 3.8 g/dL (3.5-5.1); Alkaline Phosphatase 93 U/L (38-126); Anion Gap 9 mmol/L (4-12); Aspartate Amino Transferase 23 U/L (17-59); Bilirubin,Total 0.5 mg/dL (0.2-1.3); Blood Urea Nitrogen 19 mg/dL (9-20); Calcium 8.8 mg/dL (8.4-10.2); Carbon Dioxide 22 mmol/L (22-30); Chloride 106 mmol/L (98-107); Cholesterol 190 mg/dL (0-200); Estimated CRCL calculation 46 ml/min; Estimated Glomerular Filt Rate > 60; Glucose 107 mg/dL (65-110); HDL Direct 36 mg/dL; Potassium 4.2 mmol/L (3.4-5.0); Sodium 137 mmol/L (137-145); Total Protein 7.2 g/dL (6.3-8.2); Triglycerides 77 mg/dL (<150)
[2025-01-13 12:39] LABS: Troponin I 0.067 ng/mL (0.000-0.034)
[2025-01-13] MEDS: HEPARIN SOD/D5W 100 UNITS/ML 25,000 UNITS/250 ML BAG 9 UNITS IV CONT (13:24)
--- NOTE | 2025-01-13 13:53 | P.HP_ITS ---
H&P: HPI History of Present Illness Date/Time: 01/13/25 13:53 Chief Complaint: Chest pain Narrative: Javier is an 84 year old male with hypertension, tobacco use who presented via EMS with chest pain. Chest pain began about 30 minutes prior to EMS arriving. EMS EKG showed ST elevation in AVR, V1 and V2 concerning for STEMI. Therefore cath lab radiology technician was activated. By the time EMS arrived to the ED, it had been about 1 hour since chest pain onset. Given NTG with improvement. He has an ASA allergy, therefore, EMS gave him Brilinta 180mg. Hemodynamically stable. Prior to start of cath, patient was chest pain free. Review of Systems Cardiovascular: Cardiovascular: Reports as per [facility] Past Medical History Medical History Pneumonia Gastroenteritis Renal calculus Social History Social History Smoking status: Current every day smoker Alcohol intake: never Substance use: never Do You Feel Safe in your Home?: Yes Lack of Transportation: No Lack of Food: Never True Current Housing: I Have Housing Concerned About Future Housing: No Difficulty Paying Gas/Electric Bills: No Difficulty Paying for Meds: No Currently Unemployed: No Education: High School Diploma/GED Difficulty w/ Childcare or Family Care: No Spiritual care concerns: No Meds Home Medications and Allergies Home Medications ?Medication ?Instructions ?Recorded ?Confirmed ?Type albuterol sulfate 5 mg/mL(0.5 %) 2.5 mg (0.5 mL) inhalation Q6H PRN 02/19/22 01/13/25 Rx solution for nebulization bronchospasm #20 mL albuterol sulfate 90 mcg/actuation 1 inh inhalation QID PRN shortness 02/19/22 01/13/25 Rx aerosol inhaler (Ventolin HFA) of breath or wheezing #8.5 grams montelukast 10 mg tablet 10 mg PO DAILY 02/19/22 01/13/25 History verapamil 120 mg tablet,extended 120 mg PO HS 02/19/22 01/13/25 History release bupropion HCl 150 mg tablet,12 hr 150 mg PO Q12H 01/13/25 01/13/25 History sustained-release famotidine 20 mg tablet 20 mg PO BID 01/13/25 01/13/25 History lisinopril 10 mg tablet 10 mg PO DAILY 01/13/25 01/13/25 History omeprazole 40 mg capsule,delayed 40 mg PO DAILY 01/13/25 01/13/25 History release tamsulosin 0.4 mg capsule 0.4 mg PO DAILY 01/13/25 01/13/25 History tiotropium bromide 2.5 2 puff inhalation DAILY 01/13/25 01/13/25 History mcg/actuation mist for inhalation (Spiriva Respimat) Allergies Allergy/AdvReac Type Severity Reaction Status Date / Time aspirin Allergy Mild Rash Verified 06/08/24 18:30 Contrast Media Allergy Mild Confusion Uncoded 06/08/24 18:30 Vital Signs Vital Signs - 24 hr 01/13/25 11:49 01/13/25 13:35 Temperature 36.4 C 36.5 C Pulse Rate 86 60 Respiratory Rate 18 26 H Blood Pressure 114/70 144/66 H Pulse Oximetry 95 95 Oxygen Delivery Room Air Exam Const: General: no acute distress Other: Elderly appearing male HENMT: Mouth: Yes dry mucous membranes Eyes: General: appearance normal, both eyes and all related structures Sclera: sclerae normal Resp: Effort & Inspection: normal respiratory effort Cardio: Rate: regular rate Rhythm: regular rhythm Skin: General skin exam: normal color Psych: Mental Status: mental status grossly normal Affect: normal affect H&P: Results Labs Labs: Short CBC 01/13/25 Range/Units 11:56 WBC 8.0 (4.5-10.0) K/mm3 Hgb 13.1 L (14.0-18.0) g/dL Hct 39.3 L (42.0-52.0) % Plt Count 301 (150-375) k/mm3 [facility] 01/13/25 11:56 Sodium 137 Potassium 4.2 Chloride 106 Carbon Dioxide 22 BUN 19 Creatinine 1.07 Glucose 107 Calcium 8.8 Cardiac Enzymes 01/13/25 Range/Units 11:56 Troponin I 0.067 H* (0.000-0.034) ng/mL Liver Function 01/13/25 Range/Units 11:56 Total Bilirubin 0.5 (0.2-1.3) mg/dL AST 23 (17-59) U/L ALT 14 (6-50) U/L Alkaline Phosphatase 93 (38-126) U/L Albumin 3.8 (3.5-5.1) g/dL Assessment and Plan Assessment and plan (1) ST elevation [place] (STEMI): Code(s): I21.3 - ST elevation (STEMI) myocardial infarction of unspecified site Status: Acute Plan Proceed with emergent LHC. Further recommendations and plan pending results of LHC.
--- NOTE | 2025-01-13 13:59 | WPDCNINT ---
Assessment and Plan Assessment and plan (1) ST elevation NH (STEMI): Code(s): I21.3 - ST elevation (STEMI) myocardial infarction of unspecified site Status: Acute Assessment and Plan: Patient presented in a chest pain 30 minutes prior to arrival to the ER -EKG showed ST-elevation in the anterior leads -code STEMI was called, patient was taken to cardiac r and d lab technician -patient was given nitroglycerin with improvement in chest pain, as allergies to aspirin and contrast media. -patient had multivessel coronary artery disease involving the ostial LAD, left circumflex and ramus, intra-aortic balloon pump inserted, patient be transferred to [facility] for complex PCI for intervention cardiology -currently patient is chest pain-free (2) COPD (chronic obstructive pulmonary disease): Code(s): J44.9 - Chronic obstructive pulmonary disease, unspecified Status: Acute Assessment and Plan: Continue bronchodilators that he uses at home (Spiriva, DuoNeb) (3) Hypertension: Code(s): I10 - Essential (primary) hypertension Status: Acute Assessment and Plan: On lisinopril at home, will hold for now -may add hydralazine if needed Plan DVT prophylaxis: On heparin drip for intra-aortic balloon Stress ulcer prophylaxis: Protonix, patient does state omeprazole at home Nutrition: Heart healthy diet for now Code Status: Full code Critical Care Time Spent: 46 minutes Discussed with patient updated with his condition, he is aware that there are talks of him going to [facility] for further management of his heart disease Due to a high probability of clinically significant, life threatening deterioration, the patient required my highest level of preparedness to intervene emergently and I personally spent this critical care time directly and personally managing the patient. This critical care time included obtaining a history; examining the patient; pulse oximetry; ordering and review of studies; arranging urgent treatment with development of a management plan; evaluation of patient's response to treatment; frequent reassessment; and discussions with other providers. It was exclusive of separately billable procedures and treating other patients and teaching time. Please see Assessment and Plan section and the rest of the note for further information on patient assessment and treatment This dictation may have been done utilizing a voice recognition system. Attempts have been made to correct errors. However, there may be uncorrected grammatical, spelling, and recognitions errors present. Keypunch Operators Supervisor Consult Note Consult date: 01/13/25 Reason for consult: STEMI status post coronary angiogram, multivessel coronary artery disease, intra-aortic balloon pump was inserted, patient to be transferred to higher level of care for complex PCI HPI: Javier Greene is a 84 year old male with past medical history of COPD, depression, essential hypertension, GERD, pneumonia, gastroenteritis, renal calculi, who presented the ED with complains of chest pain that started 30 minutes prior to arrival to the hospital. EKG did show ST elevation in anterior leads with reciprocal T-wave changes in inferior leads. Patient did have bilateral arm pain, shortness of breath, nausea. Code STEMI was called, patient was taken to the cardiac r and d lab technician by Interventional Cardiology, multivessel coronary artery disease with involvement of the ostial LAD, left circumflex, ramus. Intra-aortic balloon pump was inserted, patient be transferred to [facility] per Interventional Cardiology for complex PCI. Patient was transferred to the ICU for further management prior to transfer Patient seen examined upon arrival to the ICU, is awake, alert, oriented, denies any chest pain, shortness of breath, abdominal pain, nausea vomiting at this time. Sander Portable Machine to balloon pump in place, patient is in a right lower extremity immobilizer. Hemodynamically stable at this time Review of Systems Review of Systems: All systems reviewed & are unremarkable except as noted in HPI and below PMFSH Past Medical History Medical History Pneumonia Gastroenteritis Renal calculus Social History Social History Smoking status: Current every day smoker Alcohol intake: never Substance use: never Do You Feel Safe in your Home?: Yes Lack of Transportation: No Lack of Food: Never True Current Housing: I Have Housing Concerned About Future Housing: No Difficulty Paying Gas/Electric Bills: No Difficulty Paying for Meds: No Currently Unemployed: No Education: High School Diploma/GED Difficulty w/ Childcare or Family Care: No Spiritual care concerns: No Meds Home Medications and Allergies Home Medications ?Medication ?Instructions ?Recorded ?Confirmed ?Type albuterol sulfate 5 mg/mL(0.5 %) 2.5 mg (0.5 mL) inhalation Q6H PRN 02/19/22 01/13/25 Rx solution for nebulization bronchospasm #20 mL albuterol sulfate 90 mcg/actuation 1 inh inhalation QID PRN shortness 02/19/22 01/13/25 Rx aerosol inhaler (Ventolin HFA) of breath or wheezing #8.5 grams montelukast 10 mg tablet 10 mg PO DAILY 02/19/22 01/13/25 History verapamil 120 mg tablet,extended 120 mg PO HS 02/19/22 01/13/25 History release bupropion HCl 150 mg tablet,12 hr 150 mg PO Q12H 01/13/25 01/13/25 History sustained-release famotidine 20 mg tablet 20 mg PO BID 01/13/25 01/13/25 History lisinopril 10 mg tablet 10 mg PO DAILY 01/13/25 01/13/25 History omeprazole 40 mg capsule,delayed 40 mg PO DAILY 01/13/25 01/13/25 History release tamsulosin 0.4 mg capsule 0.4 mg PO DAILY 01/13/25 01/13/25 History tiotropium bromide 2.5 2 puff inhalation DAILY 01/13/25 01/13/25 History mcg/actuation mist for inhalation (Spiriva Respimat) Allergies Allergy/AdvReac Type Severity Reaction Status Date / Time aspirin Allergy Mild Rash Verified 06/08/24 18:30 Contrast Media Allergy Mild Confusion Uncoded 06/08/24 18:30 Vital Signs Vital Signs - 24 hr 01/13/25 11:49 01/13/25 13:35 Temperature 97.6 F 97.7 F Pulse Rate 86 60 Respiratory Rate 18 26 H Blood Pressure 114/70 144/66 H Pulse Oximetry 95 95 Oxygen Delivery Room Air Exam Narrative: General: Pleasant gentleman, in no acute distress HEENT:? Pupils are equal and reactive, sclera is clear Neck:? Supple Respiratory:? Clear to auscultation bilaterally, decreased at bases, no wheezing, adequate air entry Cardiac:? S1-S2 is normal, sinus bradycardia Abdomen:? Abdominal is protuberant, soft, nontender, nondistended, normoactive bowel sounds Extremities:? Bilateral lower extremity trace edema, right lower extremity in an immobilizer, cardiac catheterization site with dressing in phase but no ecchymosis or hematoma were observed Neuro:? Patient is awake, alert, oriented, nonfocal, answers to questions appropriately and follows simple commands in all extremities Skin:? No lesions noted, warm and dry Psych:? Normal mentation and affect Results Labs 01/13/25 11:56 01/13/25 11:56 Labs: Short CBC 01/13/25 Range/Units 11:56 WBC 8.0 (4.5-10.0) K/mm3 Hgb 13.1 L (14.0-18.0) g/dL Hct 39.3 L (42.0-52.0) % Plt Count 301 (150-375) k/mm3 BMP 01/13/25 11:56 Sodium 137 Potassium 4.2 Chloride 106 Carbon Dioxide 22 BUN 19 Creatinine 1.07 Glucose 107 Calcium 8.8 Cardiac Enzymes 01/13/25 Range/Units 11:56 Troponin I 0.067 H* (0.000-0.034) ng/mL Liver Function 01/13/25 Range/Units 11:56 Total Bilirubin 0.5 (0.2-1.3) mg/dL AST 23 (17-59) U/L ALT 14 (6-50) U/L Alkaline Phosphatase 93 (38-126) U/L Albumin 3.8 (3.5-5.1) g/dL Quality VTE Prophylaxis VTE prophylaxis: pharmacologic ordered Hospitalist MIPS Advance Care Plan I have confirmed that the patient's Advanced Care Plan is present, code status is documented, or surrogate decision maker is listed in patient medical record.: Yes Medication Reconciliation I have utilized all available resources to obtain, update and review the patients current medications (includes all prescriptions, OTC, herbals, cannabis, and nutritional supplements).: Yes
--- NOTE | 2025-01-13 14:08 | P.SEDATION_ITS ---
Moderate Sedation Note-Pt Data Patient Data Diagnosis: STEMI Present Complaint: STEMI Procedure to be performed/Plan: Coronary angiography, left heart cath, +/- PCI Allergies Allergy/AdvReac Type Severity Reaction Status Date / Time aspirin Allergy Mild Rash Verified 06/08/24 18:30 Contrast Media Allergy Mild Confusion Uncoded 06/08/24 18:30 Home Medications ?Medication ?Instructions ?Recorded ?Confirmed ?Type albuterol sulfate 5 mg/mL(0.5 %) 2.5 mg (0.5 mL) inhalation Q6H PRN 02/19/22 01/13/25 Rx solution for nebulization bronchospasm #20 mL albuterol sulfate 90 mcg/actuation 1 inh inhalation QID PRN shortness 02/19/22 01/13/25 Rx aerosol inhaler (Ventolin HFA) of breath or wheezing #8.5 grams montelukast 10 mg tablet 10 mg PO DAILY 02/19/22 01/13/25 History verapamil 120 mg tablet,extended 120 mg PO HS 02/19/22 01/13/25 History release bupropion HCl 150 mg tablet,12 hr 150 mg PO Q12H 01/13/25 01/13/25 History sustained-release famotidine 20 mg tablet 20 mg PO BID 01/13/25 01/13/25 History lisinopril 10 mg tablet 10 mg PO DAILY 01/13/25 01/13/25 History omeprazole 40 mg capsule,delayed 40 mg PO DAILY 01/13/25 01/13/25 History release tamsulosin 0.4 mg capsule 0.4 mg PO DAILY 01/13/25 01/13/25 History tiotropium bromide 2.5 2 puff inhalation DAILY 01/13/25 01/13/25 History mcg/actuation mist for inhalation (Spiriva Respimat) Current Medications: Active Medications Heparin Sodium (Porcine) (Heparin Sodium 5,000 Units/Ml Vial) 4,000 units IV PUSH PRN PRN PRN Reason: aPTT less than 55 seconds Heparin Sodium (Porcine) (Heparin Sodium 5,000 Units/Ml Vial) 3,000 units IV PUSH PRN PRN PRN Reason: aPTT 55 - 70 seconds Heparin Sodium/Dextrose (Heparin Sodium/D5w 100 Units/Ml) 25,000 units in 250 mls @ 9 mls/hr IV CONT .Q24H STA; Protocol Stop: 01/14/25 12:48 Perflutren Lipid Microsphere (Perflutren Lipid Microspheres 1.5 Ml Vial Diluted To 10 Ml Total Volume) 0 ml IV PUSH ONCE PRN; Protocol PRN Reason: adequate visualization Stop: 01/16/25 12:09 Sedation/Anesthesia: No previous sedation/anesthesia problems (including family history). [facility] Past Medical History Medical History Pneumonia Gastroenteritis Renal calculus Social History Social History Smoking status: Current every day smoker Alcohol intake: never Substance use: never Do You Feel Safe in your Home?: Yes Lack of Transportation: No Lack of Food: Never True Current Housing: I Have Housing Concerned About Future Housing: No Difficulty Paying Gas/Electric Bills: No Difficulty Paying for Meds: No Currently Unemployed: No Education: High School Diploma/GED Difficulty w/ Childcare or Family Care: No Spiritual care concerns: No Mod Sed Physical Exam Physical Exam Pre Procedural Exam: Normal: Appearance, Lungs, Heart Rate, Heart Rhythm, Extremities and Skin Hours since solid foods: 0 Hours since liquid intake: 0 Mallampati Classification: class III Internal Medicine - PN: Obj Da Vital Signs Vital Signs: Vital Signs - 24 hr 01/13/25 11:49 01/13/25 13:35 01/13/25 14:00 Temperature 36.4 C 36.5 C Pulse Rate 86 60 49 L Respiratory Rate 18 26 H 28 H Blood Pressure 114/70 144/66 H 151/117 H Pulse Oximetry 95 95 97 Oxygen Delivery Room Air Meds/Results Medications: Active Medications Generic Name Dose Route Start Last Admin Trade Name Freq PRN Reason Stop Dose Admin Heparin Sodium (Porcine) 4,000 units 01/13/25 12:49 Heparin Sodium 5,000 Units/Ml Vial IV PUSH PRN PRN aPTT less than 55 seconds Heparin Sodium (Porcine) 3,000 units 01/13/25 12:49 Heparin Sodium 5,000 Units/Ml Vial IV PUSH PRN PRN aPTT 55 - 70 seconds Heparin Sodium/Dextrose 25,000 units in 250 mls @ 9 mls/hr 01/13/25 12:49 Heparin Sodium/D5w 100 Units/Ml IV CONT 01/14/25 12:48 .Q24H STA Protocol 900 UNITS/HR Perflutren Lipid Microsphere 0 ml 01/13/25 12:09 Perflutren Lipid Microspheres 1.5 Ml Vial Diluted To 10 Ml Total Volume IV PUSH 01/16/25 12:09 ONCE PRN adequate visualization Protocol Labs 01/13/25 11:56 01/13/25 11:56 Labs: Laboratory Results - last 24 hr 01/13/25 11:56 WBC 8.0 RBC 4.42 L Hgb 13.1 L Hct 39.3 L MCV 88.9 MCH 29.6 MCHC 33.3 RDW 14.8 H Plt Count 301 MPV 10.8 H Immature Gran % (Auto) 0.4 Neut % (Auto) 66.5 Lymph % (Auto) 18.1 L [place] % (Auto) 11.6 H Eos % (Auto) 2.8 Baso % (Auto) 0.6 Lymph # (Auto) 1.44 [place] # (Auto) 0.9 H Eos # (Auto) 0.2 Baso # (Auto) 0.1 Abs Immat Gran (auto) 0.03 Absolute Neuts (auto) 5.3 Absolute Nucleated RBC 0.000 Nucleated RBC % 0.0 PT 15.4 H INR 1.2 APTT 32.1 Sodium 137 Potassium 4.2 Chloride 106 Carbon Dioxide 22 Anion Gap 9 BUN 19 Creatinine 1.07 Estim Creat Clear Calc 46 Estimated GFR > 60 Glucose 107 Calcium 8.8 Total Bilirubin 0.5 AST 23 ALT 14 Alkaline Phosphatase 93 Troponin I 0.067 H* Total Protein 7.2 Albumin 3.8 Triglycerides 77 Cholesterol 190 LDL Cholesterol Direct 117 HDL Direct 36 Blood Type O Positive Antibody Screen Negative ASA Classification/Sedation ASA Classification/Sedation ASA Class: IV Emergent: Yes Risks: Risks, benefits and alternatives explained and patient/family accepted plan for sedation. Patient re-evaluated immediately prior to sedation.
--- NOTE | 2025-01-13 14:10 | WPDCARDPROC ---
Cardiac Cath Procedure Note Date of procedure:: 01/13/25 Performing physician:: CATHETERIZATION LABORATORY REPORT Procedure Date: 01/13/2025 Certified Medication Technician: Lubna Jones M.D., [facility]? Referring Physician: Dr. Ramon ([facility]) Anesthesia: Versed and Fentanyl were ordered and given in my presence at 12:14, procedure ended at 12:55. Supervision of nurse monitored moderate sedation with Versed and Fentanyl was provided for 41 minutes. Total of Versed 1mg and Fentanyl 25mcg were administered by the Stretch Machine Operator RN Jess Roque. Pre-op Diagnosis: Coronary artery disease Post-op Diagnosis: 1. Multivessel coronary artery disease with involvement of the ostial LAD/LCX/Ramus. 2. Elevated left ventricular end-diastolic pressure of 40mmHg 3. S/p IABP placement. Procedure(s): 1. Moderate sedation 2. Ultrasound-guided access of the right radial artery 3. Coronary angiography 4. Left heart cath 5. Ultrasound-guided access of the right common femoral artery 6. Placement of IABP Access Site: Right radial artery Right common femoral artery Brief History and Clinical Indications: Patient is an 84 year old male who is referred for emergent LHC for STEMI. All risks, benefits and alternatives to left heart catheterization with or without percutaneous coronary intervention was discussed at length with the patient. Risk of complications including but not limited to bleeding, infection, arrhythmia, stroke, worsening kidney function, blood loss, groin hematoma, limb loss, emergency coronary artery bypass grafting, and even were discussed with the patient and all questions were answered. The patient understood and wished to proceed. Time out called, patient name, date of , medical record number, allergies, procedure performed, identify Certified Medication Technician, patient and staff member concurred with accurate data, procedure carried on. Findings: LEFT HEART CATHETERIZATION FINDINGS: 1. Left main: The left main coronary artery is patent without any significant angiographic disease. 2. Left anterior descending: Calcifications seen in the proximal LAD. There is severe ostial LAD disease of 99% followed by a tandem lesion of 90%. CARLITOS 2 flow in the LAD. 3. Left circumflex: There is severe ostial LCX and Ramus disease. 4. Right coronary artery: The RCA is the dominant vessel. There is mild diffuse disease. The mid portion of the RPLV has an 80-90% stenosis. The ostium of the RPDA appears to have a 70% stenosis. 5. Left ventricle: A. End-diastolic pressure 40mmHg. B. LV gram deferred. C. No significant gradient across aortic valve on catheter pullback. Description of Procedure: Informed consent signed and placed in the chart. Patient transferred to r and d lab technician room. Prepped and draped in usual sterile fashion. 2% lidocaine injected subcutaneously in right wrist area. 22-gauge venipuncture catheter used to access the right radial artery under ultrasound guidance. 6-FR slender sheath placed in right radial artery. Nitroglycerine and Verapamil were given intraarterial through the sheath. Versacore wire advanced under fluoroscopy 5F Ultra 4 diagnostic catheter engaged Left Main Coronary Artery. 5F Ultra 4 diagnostic catheter engaged Right Coronary Artery Multiple orthogonal angiogram obtained and reviewed 5F Pigtail diagnostic catheter crossed aortic valve to obtain LVEDP, LV angiogram deferred. 2% lidocaine in right groin area. Micropuncture needle used to access right common femoral artery with Seldinger technique under fluoroscopic and ultrasound guidance. J wire advanced, micropuncture cannula placed. Right iliofemoral angiogram performed, access confirmed and micropuncture cannula exchanged for 6-FR sheath. The 6F sheath was exchanged out for IABP sheath. IABP was advanced. Sheath sutured in place. Radial hemostasis was achieved by application of TR band. Disposition: ICU Plan: 1. Since patient was chest pain free already prior to start of cardiac catheterization, given ostial LAD/LCX/Ramus disease, will transfer out to tertiary center for complex PCI. 2. Has ASA allergy, therefore, will hold off on starting ASA for now. Ideally, would need ASA desensitization. 3. Will continue with SAPT with Brilinta. 4. High intensity statin 5. Echocardiogram. 6. Continue IABP at 1:1. Continue Heparin drip for ACS protocol. 7. Continue aggressive medical therapy and risk factor modification. ? Lubna Jones M.D. Interventional Cardiology
--- NOTE | 2025-01-13 14:35 | PC.NURSE ---
This patient, Javier Greene, was admitted to Intensive Care Unit-7. Patient/family oriented to hospital policies and general routines including ID bracelet, bed and alarms, visiting hours, pain management, procedures, bathroom and other care routines, personal items, smoking policy, room service/diet, and visiting hours. Information on how to activate the Rapid Response Team has been discussed. Patient/Family are encouraged to report perceived risks to care and to ask questions if they do not understand what they are told or what they should do.
[2025-01-13 14:54] LABS: Hemoglobin A1C 5.7 % (<5.7)
--- NOTE | 2025-01-13 15:43 | PC.NURSE ---
Called report to Hannah at [facility]. Notified of balloon pump and TR band. Was able to deflate TR band at this time but will send with patient. Waiting for air-evac to come get patient.
[2025-01-13] MEDS: PERFLUTREN LIPID MICROSPHERES 1.5 ML VIAL DILUTED TO 10 ML TOTAL VOLUME IV PUSH (15:52)
--- NOTE | 2025-01-13 15:52 | IVDEFINITY ---
Prior to administration of IV Definity the patient was educated on the risks and benefits of the imaging enhancing agent including potential adverse side effects. The patient verbalized understanding. Allergies were verified. No exclusion criteria were identified and at least one of the following inclusion criteria were met: 1) physician request, 2) patient technically difficult to image (per the [place] [employer] guidelines of two or more segments not discernable within the apical view), or 3) questionable left ventricular function. ?
[2025-01-13] MEDS: ATORVASTATIN 40 MG TABLET 80 MG PO (15:55)
[2025-01-13 15:56] LABS: MRSA (PCR) NOT DETECTED (NOT DETECTE)
--- NOTE | 2025-01-13 16:34 | PC.NURSE ---
air-evac crew leaving with patient. [facility] transfer line notified as per requested.
--- NOTE | 2025-01-13 16:37 | PCCCNOTE ---
Called to the ED for a STEMI coming via EMS. Pt alert and talking. He asked us to call his sister and let her know that he was here and let her know what's going on with him. The sister was informed and would be here at some point today.
[2025-01-13 16:39] LABS: Troponin I 11.400 ng/mL (0.000-0.034)
--- NOTE | 2025-01-13 16:46 | PC.NURSE ---
Patient's granddaughter Celeste has been updated and notified regarding this patient being transferred to [facility] room 350-A [phone].
--- NOTE | 2025-01-13 17:18 | P.TS_ITS ---
Transfer Discharge Sum: Prov Provider Date of admission: 01/13/25 11:56 Primary care physician: Mike Mckenzie MD Admitting clinician: Lubna Jones MD Attending physician on admission: Lubna Jones Consults: Critical Care Attending physician on discharge: Lubna Jones Discharging clinician: Lubna Jones Anticipated date of transfer: 01/13/25 Receiving physician/facility: [facility] DS: Admitting Diagnosis Discharge Date 01/13/25 Admitting Diagnosis Acute coronary syndrome Transfer Discharge Sum: Med Medications Active and Home Medications: Home Medications albuterol sulfate 5 mg/mL(0.5 %) solution for nebulization 2.5 mg (0.5 mL) inhalation Q6H PRN bronchospasm #20 mL 02/19/22 [Rx Confirmed 01/13/25] albuterol sulfate 90 mcg/actuation aerosol inhaler (Ventolin HFA) 1 inh inhalation QID PRN shortness of breath or wheezing #8.5 grams 02/19/22 [Rx Confirmed 01/13/25] montelukast 10 mg tablet 10 mg PO DAILY 02/19/22 [History Confirmed 01/13/25] verapamil 120 mg tablet,extended release 120 mg PO HS 02/19/22 [History Confirmed 01/13/25] bupropion HCl 150 mg tablet,12 hr sustained-release 150 mg PO Q12H 01/13/25 [History Confirmed 01/13/25] famotidine 20 mg tablet 20 mg PO BID 01/13/25 [History Confirmed 01/13/25] lisinopril 10 mg tablet 10 mg PO DAILY 01/13/25 [History Confirmed 01/13/25] omeprazole 40 mg capsule,delayed release 40 mg PO DAILY 01/13/25 [History Confirmed 01/13/25] tamsulosin 0.4 mg capsule 0.4 mg PO DAILY 01/13/25 [History Confirmed 01/13/25] tiotropium bromide 2.5 mcg/actuation mist for inhalation (Spiriva Respimat) 2 puff inhalation DAILY 01/13/25 [History Confirmed 01/13/25] Transfer Discharge Sum: Hosp Hospital Course Hospital course: Javier is an 84 year old male with hypertension, tobacco use who presented via EMS with chest pain. Chest pain began about 30 minutes prior to EMS arriving. EMS EKG showed ST elevation in AVR, V1 and V2 concerning for STEMI. Therefore sanitation laborer was activated. By the time EMS arrived to the ED, it had been about 1 hour since chest pain onset. Given NTG with improvement. He has an ASA allergy, therefore, EMS gave him Brilinta 180mg. Hemodynamically stable. Prior to start of cath, patient was chest pain free. LHC shows: 1. Multivessel coronary artery disease with involvement of the ostial LAD/LCX/Ramus. 2. Elevated left ventricular end-diastolic pressure of 40mmHg 3. S/p IABP placement. 1. Since patient was chest pain free already prior to start of cardiac cath eterization, given ostial LAD/LCX/Ramus disease, will transfer out to tertiary center for complex PCI. 2. Has ASA allergy, therefore, will hold off on starting ASA for now. Ideally, would need ASA desensitization. 3. Will continue with SAPT with Brilinta. 4. High intensity statin 5. Echocardiogram. 6. Continue IABP at 1:1. Continue Heparin drip for ACS protocol. 7. Continue aggressive medical therapy and risk factor modification. Of note, patient had a CT chest done in February 2024 that showed a 14mm spiculated RUL pulmonary nodule that was suspicious for bronchogenic carcinoma. Unclear if this has been further investigated. Patient is an ongoing smoker. Of note, patient also with allergy listed to contrast media. Patient given emergent pre-treatment prior to start of LHC. Patient Condition: Critical Time Spent with Patient Time attestation: Total time spent providing and/or coordinating transfer services: Exam Narrative: See H&P note dated 01/13. DS: Data Data Completed and Pending Labs on day of discharge: Labs from last 24 hours 01/13/25 01/13/25 01/13/25 15:51 14:37 11:56 WBC 8.0 RBC 4.42 L Hgb 13.1 L Hct 39.3 L MCV 88.9 MCH 29.6 MCHC 33.3 RDW 14.8 H Plt Count 301 MPV 10.8 H Immature Gran % (Auto) 0.4 Neut % (Auto) 66.5 Lymph % (Auto) 18.1 L [place]cd[place] % (Auto) 11.6 H Eos % (Auto) 2.8 Baso % (Auto) 0.6 Lymph # (Auto) 1.44 [place] # (Auto) 0.9 H Eos # (Auto) 0.2 Baso # (Auto) 0.1 Abs Immat Gran (auto) 0.03 Absolute Neuts (auto) 5.3 Absolute Nucleated RBC 0.000 Nucleated RBC % 0.0 PT 15.4 H INR 1.2 APTT 32.1 Sodium 137 Potassium 4.2 Chloride 106 Carbon Dioxide 22 Anion Gap 9 BUN 19 Creatinine 1.07 Estim Creat Clear Calc 46 Estimated GFR > 60 Glucose 107 Hemoglobin A1c 5.7 Calcium 8.8 Total Bilirubin 0.5 AST 23 ALT 14 Alkaline Phosphatase 93 Troponin I 11.400 H* D 0.067 H* Total Protein 7.2 Albumin 3.8 Triglycerides 77 Cholesterol 190 LDL Cholesterol Direct 117 HDL Direct 36 Nasal MRSA (PCR) Not detected Blood Type O Positive Antibody Screen Negative
== END 2025-01-13 16:32 | disposition short-term general hospital (02) | DRG 272 ==
LOC: ANHED 11:56 → ANHCATHLAB 11:58 → ANHED 13:29 → ANHICU 13:30
PROVIDERS: Admitting Provider Internal Medicine; Emergency Provider Student in an Organized Health Care Education/Training Program; PCP Internal Medicine; Visit Provider Internal Medicine
PROC: 4A023N7 Measurement of Cardiac Sampling and Pressure, Left Heart, Percutaneous Approach (ICD-10-PCS; CPT 93452; principal; 2025-01-13 12:00)
PROC: 4A023N7 Measurement of Cardiac Sampling and Pressure, Left Heart, Percutaneous Approach (ICD-10-PCS; 2025-01-13 12:00)
DX: I21.3 ST elevation (STEMI) myocardial infarction of unspecified site (principal); I10 Essential (primary) hypertension; I24.9 Acute ischemic heart disease, unspecified; E78.5 Hyperlipidemia, unspecified; F17.210 Nicotine dependence, cigarettes, uncomplicated; I25.10 Atherosclerotic heart disease of native coronary artery without angina pectoris; J44.9 Chronic obstructive pulmonary disease, unspecified; R91.1 Solitary pulmonary nodule; Z88.6 Allergy status to analgesic agent
CPT/HCPCS: 33967; 36415; 80053; 80061; 83036; 84484; 85025; 85610; 85730; 86850; 86900; 86901; 87641; 93005; 93458; 99291; A9270; C1769; C1887; C1894; C8929; J0583; J1200; J1644; J2003; J2250; J2405; J2919; J3010; J7040; L1830; Q9957

== ENCOUNTER 2025-01-23 08:58 | Emergency (ER) | payer BC, SELFPAY ==
[2025-01-23] VITALS (34 sets, daily range): BP systolic 102–134; BP diastolic 56–116; PULSE 43–68; RESP 12–34; TEMP 36.7; O2SAT 84–99
--- NOTE | ~2025-01-23 | XR_ITS ---
CHEST RADIOGRAPH CLINICAL HISTORY: sob . COMPARISON: 04/10/2023 TECHNIQUE: Single portable view of the chest. FINDINGS The cardiomediastinal silhouette is unremarkable. Indeterminate 12 mm asymmetry within the right upper lobe, possibly superimposed vascularity for whic h cross-sectional imaging (noncontrast enhanced CT examination of the chest) is suggested for further evaluation, if the patient is clinically able. The remainder of the lungs are clear IMPRESSION: Indeterminate 12 mm asymmetry within the right upper lobe, possibly superimposed vascularity for whic h cross-sectional imaging (noncontrast enhanced CT examination of the chest) is suggested for further evaluation, if the patient is clinically able. Reviewed, dictated and finalized at location A. IMPRESSION: Indeterminate 12 mm asymmetry within the right upper lobe, possibly superimpose d vascularity for which cross-sectional imaging (noncontrast enhanced CT examin ation of the chest) is suggested for further evaluation, if the patient is clin ically able.
--- NOTE | ~2025-01-23 | CT_ITS ---
EXAMINATION: CTA chest PE protocol DATE: 01/23/2025 10:44 CDT INDICATION: Shortness of breath, chest pain with elevated d-dimer TECHNIQUE: Computed tomographic angiography (CTA) of the chest was performed with 100 mL Omnipaque-35 0 intravenous contrast. The dose-length product was 462.39 mGy-cm. Maximum intensity projection 3D-re constructions of the aorta and other arteries were constructed by the technologist on a separate work station. COMPARISON: None. Reference is made to a noncontrast enhanced CT examination of the chest dated 2023 and dating back to 03/03/2022. Reference is also made to a plain film evaluation of the chest performed approximately 1 hour earlier , demonstrating a possible 12 mm asymmetry within the right upper lobe. FINDINGS/OBSERVATIONS: PULMONARY ARTERIES: No filling defect is identified within the main or proximal pulmonary artery. The main pulmonary artery is not enlarged. THORACIC AORTA: No aneurysmal dilatation or dissection is present. The great vessels are intact LUNGS: Panlobular emphysematous disease is identified along with interstitial thickening and small bi lateral pleural effusions, right greater than left. A spiculated 16 x 18 mm mass is identified within the right upper lobe (axial series, images 40 throu gh 45), corresponding to recent chest radiograph. This mass was also noted on prior CT scan of the chest dated 03/18/2024 and has increased in size from 14 mm (axial series, image 38) and has developed since examination dated 03/03/2022 when it was undete ctable. This mass represents a malignancy until proven otherwise. Subcentimeter nodules within the left upper and lower lobes are unchanged in size from previous exami [facility] [place]. MEDIASTINUM: No morphologically suspicious or pathologically enlarged lymph nodes are identified with in the mediastinum or bilateral axilla. BONES OF THE CHEST: No acute fracture. No significant degenerative disease. A heterogeneous appearance of the bone marrow is identified without discrete lytic or blastic lesions . HEART: The heart is of normal size, without pericardial effusion. Within the upper abdomen: The bilateral adrenal glands are unremarkable. IMPRESSION: No pulmonary embolus. No thoracic aortic dissection. Increase in size of a spiculated mass within the right upper lobe which represents a malignancy until proven otherwise. This focus is amenable to percutaneous biopsy, if needed. Interval development of small bilateral pleural effusions, when compared with previous study. Severe panlobular emphysematous disease persists. Reviewed, dictated and finalized at location A. IMPRESSION: No pulmonary embolus. No thoracic aortic dissection. Increase in size of a spiculated mass within the right upper lobe which represe nts a malignancy until proven otherwise. This focus is amenable to percutaneous biopsy, if needed. Interval development of small bilateral pleural effusions, when compared with p revious study. Severe panlobular emphysematous disease persists.
--- OUTSIDE RECORDS SUMMARY | 2025-01-23 09:03 | XMS_ITS | Continuity of Care Document ---
Author Organization [facility] Address [address] [place] [address] Phone Care Team Providers Care Kiln Mechanic Name Role Phone Josh Modi Unavailable Unavailable Advance Directives Directive Yes / No Effective Date File Name No Information Encounters Encounter Description Practice Location Reason(s) For Visit Diagnoses Date Provider Providers Copied on Encounter [facility], [address], [place], [place], [id number], [place] tel:[phone] [facility] No Information [address] , [address], [place], [address], [place]. tel:[phone] Family History Family Member Type Diagnosis Age At Onset No Information Payers Payer name Insurance type Covered constitution party ID Authoriza tion(s) Medicaid ON LICENSE OF [facility] [id number] Social History Type Description Quantity Date Captured [...]
--- OUTSIDE RECORDS SUMMARY | 2025-01-23 09:03 | XMS_ITS | Clinical Summary ---
Author Organization [facility] Address [address] [place] [address] Phone Care Team Providers Care Evening Or Night Nurse Supervisor Name Role Phone Mike Mckenzie MD Primary Care Provider [phone] Levi Nguyễn MD Unavailable [phone] Allergies Active Allergy Reactions Criticality Noted [...] MEDIC[place] [id number] Advance Directives Documents on File Type Date Recorded Patient Lasting Machine Operator Bed Expl anation Other Advance Directive 03/20/2022 9:52 AM PROCEDUR CONSENT/URO Care Teams Evening Or Night Nurse Supervisor Relationship Specialty Start Date End Date Mike Mckenzie MD [address] [place] [address] PCP - General Internal Medicine 11/30/21 Levi Nguyễn MD [address] [address] Consulting Physician Urology 03/15/22
--- NOTE | 2025-01-23 09:04 | ECG_ITS ---
Test Date: 2025-01-23 09:11:55 Measurements Intervals [place] Rate: 64 P: 50 [place]: 173 QRS: 103 QRSD: 89 T: 105 QT: 438 QTc: 452 Interpretive Statements SINUS RHYTHM WITH OCCASIONAL ECTOPIC PREMATURE COMPLEXES RIGHT AXIS DEVIATION CONSIDER HIGH LATERAL INFARCT, AGE INDETERMINATE ST-T WAVE ABNORMALITY IN ANTEROLATERAL LEADS- CONSIDER ISCHEMIA BASELINE WANDER- I, II, AVR, AVL, AVF ABNORMAL ECG Compared to ECG 01/13/2025 11:53:17 ST ELEVATION NO LONGER PRESENT Electronically Signed On 01-23-2025 09:19:42 CDT by Bradley Wtaers D.O.
--- NOTE | 2025-01-23 09:05 | ED_ITS ---
HPI - SOB/Dyspnea General Chief Complaint: Shortness of Breath/Dyspnea Stated Complaint: shortness of breath Source: patient and EMS Mode of arrival: EMS Limitations: no limitations History of Present Illness HPI Narrative: Patient is a 84-year-old male with recent STEMI a week and half ago and got a stent. He went to [facility] to get his STEMI/ stent repair. He was just discharged a few days ago. He is here with acute shortness of breath and general weakness not feeling well over the past couple of weeks since the STEMI. He required a cardio shock during his hospitalization. Slight chest pain on and off. He has COPD. He was given 2 inhalers but only is using one of them. MD elicited complaint: shortness of breath and chest pain Pertinent past history: COPD and other ( Coronary artery disease) Onset (ago): day(s) ( 1-2 days /2 weeks) Context: recent illness ( coronary artery disease with a stent a week and half ago now having shortness of breath and occasional chest pain) Timing: constant ( shortness of breath) and intermittent ( chest pain) Severity: moderate Exacerbating factors: nothing Relieving factors: nothing Known history of: COPD and other ( CAD) Associated symptoms: chest pain Treatment prior to arrival: bronchodilator Related Data Home oxygen amount: none Home Medications ?Medication ?Instructions ?Recorded ?Confirmed ?Last Taken ?Type montelukast 10 mg tablet 10 mg PO DAILY 02/19/22 01/23/25 Unknown History bupropion HCl 150 mg tablet,12 hr 150 mg PO Q12H 01/13/25 01/23/25 Unknown History sustained-release famotidine 20 mg tablet 20 mg PO BID 01/13/25 01/23/25 Unknown History omeprazole 40 mg capsule,delayed 40 mg PO DAILY 01/13/25 01/23/25 Unknown History release tamsulosin 0.4 mg capsule 0.4 mg PO DAILY 01/13/25 01/23/25 Unknown History tiotropium bromide 2.5 2 puff inhalation DAILY 01/13/25 01/23/25 Unknown History mcg/actuation mist for inhalation (Spiriva Respimat) amiodarone 200 mg tablet mg 01/23/25 Unknown History apixaban 5 mg tablet (Eliquis) mg 01/23/25 Unknown History atorvastatin 40 mg tablet mg 01/23/25 Unknown History dapagliflozin propanediol 10 mg mg 01/23/25 Unknown History tablet (Farxiga) hydrocodone 10 mg-acetaminophen tablet 01/23/25 Unknown History 325 mg tablet ticagrelor 90 mg tablet mg 01/23/25 Unknown History Allergies Allergy/AdvReac Type Severity Reaction Status Date / Time aspirin Allergy Mild Rash Verified 01/23/25 09:14 Review of Systems 2 Review of Systems: All systems reviewed & are unremarkable except as noted in HPI and below Constitutional: Constitutional: Reports no additional constitutional complaints Eyes: Eyes: Reports no additional eye complaints ENT: Reports system reviewed and no additional complaints, except as documented Cardiovascular: Cardiovascular: Reports no additional cardiovascular complaints Respiratory: Respiratory: Reports no additional respiratory complaints Gastrointestinal: Gastrointestinal: Reports no additional gastrointestinal complaints Genitourinary: Genitourinary: Reports no additional male genitourinary complaints Musculoskeletal: Musculoskeletal: Reports no additional musculoskeletal complaints Integumentary/Breasts: Skin/Breast: Reports system reviewed and no additional complaints, except as docu Neurologic: Reports system reviewed and no additional complaints, except as documented Psychiatric: Psychiatric: Reports no additional psychiatric complaints Endocrine: Endocrine: Reports no additional endocrine complaints Hematologic/Lymphatic: Hematologic/Lymphatic: Reports no additional hematologic/lymphatic complaints Allergic/Immunologic: Allergic/Immunologic: Reports no additional allergic/immunologic complaints FOR[facility]LY [facility] Past Medical History Medical History Smoker HLD (hyperlipidemia) Hypertension Lung cancer Pneumonia Gastroenteritis Renal calculus Family History Family History Mother Cancer Social History Social History Smoking packs per day: 0 Smoking cigarettes per day: 0.0 Years smoked: 65 Smoking pack-years: 0.00 Smoking status: Light tobacco smoker Tobacco type: cigarettes Second hand tobacco smoke exposure: No Additional smoking assessment comments: Current smoker Alcohol intake: former Substance use: never Substance use type: does not use Do You Feel Safe in your Home?: Yes Lack of Transportation: No Lack of Food: Never True Current Housing: I Have Housing Concerned About Future Housing: No Difficulty Paying Gas/Electric Bills: No Difficulty Paying for Meds: No Currently Unemployed: No Education: Grade School Difficulty w/ Childcare or Family Care: No Living arrangements: with friend(s) Spiritual care concerns: No Exam 2 Const: General: healthy appearing Nutritional Appearance: well nourished Orientation/consciousness: patient oriented x3 Limitations: no limitations HENMT: Head: normal to inspection Ears: external ears normal F daryl/Nose/Sinus: Normal external nose present Eyes: Conjunctivae: conjunctivae normal Pupils: Equal, round and reactive pupils present EOM: EOMs intact bilaterally Neck: Neck: normal visual inspection Chest: Chest palpation & inspection: normal inspection of the chest Resp: Effort & Inspection: abnormal respiratory effort, labored and tachypneic Auscultation: clear to auscultation bilaterally, no crackles, no rales, rhonchi, wheezes, breath sounds present and diminished lung sounds Cardio: Rate: regular rate Rhythm: regular rhythm Heart sounds: no murmurs GI: Inspection: non-distended GI Palp: Yes Soft to palpation and No Tenderness to palpation present (GI) Auscultation: normal bowel sounds : General: Yes bladder normal to palpation Back/Spine/Pelvis: Back: no CVA tenderness Skin: General skin exam: normal color Rashes: no rashes Wounds: no wounds Neuro: General: patient oriented x3, moves all extremities and no meningeal signs Cranial nerves: Yes Nystagmus not present Speech: normal speech Extrem: General: normal to inspection Psych: Mental Status: mental status grossly normal Affect: normal affect Attitude: cooperative Course Vital Signs Vital signs: Vital Signs Temperature 36.7 C 01/23/25 09:10 Pulse Rate 63 01/23/25 09:10 Respiratory Rate 24 H 01/23/25 09:10 Blood Pressure 126/79 01/23/25 09:10 Pulse Oximetry 97 01/23/25 09:10 Oxygen Delivery Nasal Cannula 01/23/25 09:10 Oxygen Flow Rate 3 01/23/25 09:10 Temperature 36.7 C 01/23/25 09:10 Pulse Rate 64 01/23/25 12:16 Respiratory Rate 23 H 01/23/25 12:16 Blood Pressure 108/79 01/23/25 12:16 Pulse Oximetry 84 L 01/23/25 11:31 Oxygen Delivery Nasal Cannula 01/23/25 09:15 Oxygen Flow Rate 3 01/23/25 09:15 MDM - SOB/Dyspnea MDM Narrative Medical decision making narrative: patient is 84-year-old male with recent CAD/stent 2 weeks ago. He is here for chest pain and shortness of breath. Will do a cardiovascular pulmonary workup at this time. Likely transfer back to [facility] for further evaluation. He will need higher level care. Patient on Eliquis for AFib. He has COPD. New onset CAD. It appears he had a cardiac tamponade. Lab Data Attestation: I reviewed the patient's lab results. 01/23/25 09:29 01/23/25 09:29 Labs: Lab Results 01/23/25 01/23/25 Range/Units 09:29 09:43 WBC 13.3 H (4.8-10.8) K/mm3 RBC 3.50 L (4.70-6.10) M/mm3 Hgb 10.4 L (12.4-15.3) g/dL Hct 32.2 L (37.0-46.0) % MCV 92.0 (78.0-102.0) fL MCH 29.7 (27.0-31.0) pg MCHC 32.3 (32-36) g/dL RDW 15.2 H (11.6-14.4) % Plt Count 421 H (150-420) K/mm3 MPV 11.0 (8.7-11.0) fl Immature Gran % (Auto) 1.1 H (0.0-0.0) % Neut % (Auto) 80.8 H (50.0-70.0) % Lymph % (Auto) 8.2 L (18.0-42.0) % [place] % (Auto) 9.5 (2.0-11.0) % Eos % (Auto) 0.1 L (1.0-6.0) % Baso % (Auto) 0.3 (0.0-1.0) % Lymph # (Auto) 1.09 L (1.10-4.50) K/mm3 [place] # (Auto) 1.26 H (0.10-0.90) K/mm3 Eos # (Auto) 0.01 L (0.02-0.50) K/mm3 Baso # (Auto) 0.04 (0.00-0.10) K/mm3 Abs Immat Gran (auto) 0.15 H (0.00-0.00) K/mm3 Absolute Neuts (auto) 10.74 H (1.70-7.20) K/mm3 Absolute Nucleated RBC 0.02 H (0.00-0.00) K/mm3 Nucleated RBC % 0.2 H (0-0.0) % PT 13.3 H (9.50-12.1) Seconds INR 1.2 APTT 30.0 (23.9-30.70) Sec D-Dimer 1.47 H (0.19-0.50) mg/L Sodium 138 (137-145) mmol/L Potassium 4.3 (3.4-5.0) mmol/L Chloride 107 (98-107) mmol/L Carbon Dioxide 26 (22-30) mmol/L Anion Gap 5 (4-12) mmol/L BUN 27 H (9-20) mg/dL Creatinine 1.12 (0.7-1.3) mg/dL Estim Creat Clear Calc 39 ml/min Estimated GFR > 60 (59 - ) Glucose 102 (65-110) mg/dL Calculated Osmolality 291 (285-295) mOsm/kg Lactic Acid 1.3 (0.4-2.0) mmol/L Calcium 8.1 L (8.4-10.2) mg/dL Magnesium 2.1 (1.6-2.3) mg/dL Total Bilirubin 0.9 (0.2-1.3) mg/dL AST 43 (17-59) U/L ALT 35 (6-50) U/L Alkaline Phosphatase 92 (38-126) U/L Troponin I 0.496 H* (0.000-0.034) ng/mL NT-Pro-B Natriuret Pep 31900 H (19.9-100) pg/mL Total Protein 6.8 (6.3-8.2) g/dL Albumin 3.7 (3.5-5.1) g/dL Urine Color Yellow (Yellow) Urine Appearance Clear (Clear) Urine pH 5.5 (5.0-8.0) Ur Specific [place] 1.015 (1.010-1.020) Urine Protein Trace H (Negative) Urine Glucose (UA) 3+ H (Negative) Urine Ketones Negative (Negative) Ur Blood (Man) Trace-intact H (Negative) Urine Nitrate Negative (Negative) Urine Bilirubin Negative (Negative) Urine Urobilinogen 2.0 H (0.2-1.0) mg/dL Leukocyte Esterase Rfl Negative (Negative) KRISTIN/UL Urine RBC 0-2 (0-2) /hpf Urine WBC None seen (0-3) /hpf Ur Squamous Epith Cells Rare (Few) /hpf Urine Bacteria Trace (None) /hpf Imaging Data Attestation: I personally reviewed and interpreted this imaging study as follows: Radiologist's impression: chest x-ray shows IMPRESSION: Indeterminate 12 mm asymmetry within the right upper lobe, possibly superimposed vascularity for which cross-sectional imaging (noncontrast enhanced CT examination of the chest) is suggested for further evaluation, if the patient is clinically able. CTA of the chest shows IMPRESSION: No pulmonary embolus. No thoracic aortic dissection. Increase in size of a spiculated mass within the right upper lobe which represents a malignancy until proven otherwise. This focus is amenable to percutaneous biopsy, if needed. Interval development of small bilateral pleural effusions, when compared with previous study. Severe panlobular emphysematous disease persists. ECG Data EKG #1: Attestation: I personally reviewed and interpreted this ECG as follows: ECG completion date: 01/23/25 ECG completion time: 10:05 EKG Interpretation: normal rate, sinus rhythm, PACs, ST depression ( Anterior), normal QRS, normal QT and right axis Discharge Plan Discharge Clinical Impression: Lung mass, Acute exacerbation of chronic obstructive pulmonary disease CAD (coronary artery disease) Qualifiers: Coronary Disease-Associated Artery/Lesion type: unspecified vessel or lesion type [place] vs. transplanted heart: [place] heart Associated angina: with stable angina Qualified Code(s): I25.118 - Atherosclerotic heart disease of [place] coronary artery with other forms of angina pectoris Acute exacerbation of CHF (congestive heart failure) Qualifiers: Heart failure type: unspecified Qualified Code(s): I50.9 - Heart failure, unspecified Patient Disposition: Acute Care Hospital Condition: Stable Patient Language: Faroese Prescriptions: No Action montelukast 10 mg tablet 10 mg PO DAILY albuterol sulfate [Ventolin HFA] 90 mcg/actuation HFA aerosol inhaler 1 inh inhalation QID PRN (Reason: shortness of breath or wheezing) Qty: 8.5 0RF albuterol sulfate 5 mg/mL solution for nebulization 2.5 mg inhalation Q6H PRN (Reason: bronchospasm) Qty: 20 12RF amiodarone 200 mg tablet Eliquis 5 mg tablet atorvastatin 40 mg tablet hydrocodone-acetaminophen 10-325 mg tablet ticagrelor 90 mg tablet dapagliflozin propanediol [Farxiga] 10 mg tablet omeprazole 40 mg capsule,delayed release(DR/EC) 40 mg PO DAILY bupropion HCl 150 mg tablet sustained-release 12 hr 150 mg PO Q12H famotidine 20 mg tablet 20 mg PO BID tamsulosin 0.4 mg capsule 0.4 mg PO DAILY Spiriva Respimat 2.5 mcg/actuation mist 2 puff INHALATION DAILY Follow-up/Referrals: UNKNOWN,DOCTOR [Non-Staff] - Time of Disposition: 12:03
[2025-01-23 09:34] LABS: Hematocrit 32.2 % (37.0-46.0); Hemoglobin 10.4 g/dL (12.4-15.3); Immature Granulocyte Percent A 1.1 % (0.0-0.0); Lymphocytes Absolute Auto 1.09 K/mm3 (1.10-4.50); Mean Corpuscular HGB Conc 32.3 g/dL (32-36); Mean Corpuscular Hemoglobin 29.7 pg (27.0-31.0); Mean Corpuscular Volume 92.0 fL (78.0-102.0); Nucleated Red Blood Cells Absolute Auto 0.02 K/mm3 (0.00-0.00); Nucleated Red Blood Cells Perc 0.2 % (0-0.0); Platelet Count Result 421 K/mm3 (150-420); Red Blood Count 3.50 M/mm3 (4.70-6.10); White Blood Count 13.3 K/mm3 (4.8-10.8)
[2025-01-23 09:46] LABS: Alanine Aminotransferase 35 U/L (6-50); Albumin Level 3.7 g/dL (3.5-5.1); Alkaline Phosphatase 92 U/L (38-126); Anion Gap 5 mmol/L (4-12); Aspartate Amino Transferase 43 U/L (17-59); Bilirubin,Total 0.9 mg/dL (0.2-1.3); Blood Urea Nitrogen 27 mg/dL (9-20); Calcium 8.1 mg/dL (8.4-10.2); Carbon Dioxide 26 mmol/L (22-30); Chloride 107 mmol/L (98-107); Estimated CRCL calculation 39 ml/min; Estimated Glomerular Filt Rate > 60; Glucose 102 mg/dL (65-110); Magnesium 2.1 mg/dL (1.6-2.3); Osmolality Calculated 291 mOsm/kg (285-295); Potassium 4.3 mmol/L (3.4-5.0); Sodium 138 mmol/L (137-145); Total Protein 6.8 g/dL (6.3-8.2)
--- OUTSIDE RECORDS SUMMARY | 2025-01-23 09:48 | XMS_ITS | Clinical Summary ---
Author Organization [facility] Address [address] [place] [address] Phone Care Team Providers Care Dielectric Press Operator Name Role Phone Mike Mckenzie MD Primary Care Provider [phone] Leiv Nguyễn MD Unavailable [phone] Allergies Active Allergy Reactions Criticality Noted [...] [place]IC[place] [id number] Advance Directives Documents on File Type Date Recorded Patient Aquatics Lifeguard Expl anation Other Advance Directive 03/20/2022 9:52 AM PROCEDUR CONSENT/URO Care Teams Dielectric Press Operator Relationship Specialty Start Date End Date Mike Mckenzie MD [address] [place] [address] PCP - General Internal Medicine 11/30/21 Levi Nguyễn MD [address] [address] Consulting Physician Urology 03/15/22
--- OUTSIDE RECORDS SUMMARY | 2025-01-23 09:48 | XMS_ITS | Continuity of Care Document ---
Author Organization [facility] Address [address] [place] [address] Phone Care Team Providers Care Motor Coach Operator Name Role Phone Josh Modi Unavailable Unavailable Advance Directives Directive Yes / No Effective Date File Name No Information Encounters Encounter Description Practice Location Reason(s) For Visit Diagnoses Date Provider Providers Copied on Encounter [facility], [address], [place], [place], [id number], [place] tel:[phone] [facility] No Information [address] , [address], [place], [address], [place]. tel:[phone] Family History Family Member Type Diagnosis Age At Onset No Information Payers Payer name Insurance type Covered green party ID Authoriza tion(s) Medicaid FORMERLY [facility] [id number] Social History Type Description Quantity Date Captured [...]
[2025-01-23 09:50] LABS: INR 1.2; Partial Thromboplastin Time 30.0 Sec (23.9-30.70); Prothrombin Time 13.3 Seconds (9.50-12.1)
[2025-01-23 09:51] LABS: Add Urine Microscopic? YES; Appearance Urine Clear (Clear); Glucose Urine UA 3+ (Negative); Leukocyte Esterase Ur Negative LEU/UL (Negative); Nitrate Urine Negative (Negative); Specific Grav Ur 1.015 (1.010-1.020)
[2025-01-23 09:56] LABS: NT Pro B Type Natriuretic Pept 13900 pg/mL (19.9-100)
[2025-01-23 10:00] LABS: Troponin I 0.496 ng/mL (0.000-0.034)
[2025-01-23] MEDS: FUROSEMIDE INJ 20 MG/2 ML VIAL IV PUSH (10:06)
--- NOTE | 2025-01-23 11:48 | PC.NURSE ---
Radiology called to push images to [employer] [facility]
--- NOTE | 2025-01-23 16:27 | PC.NURSE ---
Pt given sandwich and jello. Sitting up in bed eating at this time. Bed low and locked, side rails up, call light within reach.
--- NOTE | 2025-01-23 20:10 | PC.NURSE ---
Pt transferred to regular hospital bed for comfort.
[2025-01-24] VITALS (9 sets, daily range): BP systolic 134; BP diastolic 59; PULSE 52–66; RESP 17–28; O2SAT 94–97
== END 2025-01-24 03:50 | disposition short-term general hospital (02) ==
PROVIDERS: Emergency Provider Emergency Medicine; PCP Internal Medicine
DX: J44.1 Chronic obstructive pulmonary disease with (acute) exacerbation (principal); I25.118 Atherosclerotic heart disease of native coronary artery with other forms of angina pectoris; R91.8 Other nonspecific abnormal finding of lung field; I11.0 Hypertensive heart disease with heart failure; I50.9 Heart failure, unspecified; F17.210 Nicotine dependence, cigarettes, uncomplicated; E78.5 Hyperlipidemia, unspecified; Z79.01 Long term (current) use of anticoagulants; Z79.891 Long term (current) use of opiate analgesic; Z85.118 Personal history of other malignant neoplasm of bronchus and lung
CPT/HCPCS: 36415; 71045; 71275; 80053; 81001; 83605; 83735; 83880; 84484; 85025; 85380; 85610; 85730; 93005; 96374; 96375; 99285; J1938; J2919; Q9967

== ENCOUNTER 2025-03-12 14:22 | Outpatient (CLI) | payer MEDICARE, SELFPAY ==
--- NOTE | 2025-03-12 14:30 | ECG_ITS ---
Test Date: 2025-03-12 14:37:27 Measurements Intervals [place] Rate: 76 P: 85 [place]: 176 QRS: 100 QRSD: 82 T: 97 QT: 364 QTc: 411 Interpretive Statements SINUS RHYTHM BORDERLINE RIGHT AXIS DEVIATION [QRS AXIS > 90] NONSPECIFIC ST & T-WAVE ABNORMALITY ABNORMAL ECG Compared to ECG 01/23/2025 09:11:55 Myocardial infarct finding no longer present Possible ischemia no longer present T-wave abnormality still present Electronically Signed On 03-12-2025 18:02:47 CDT by Lencho Aguero M.D.
--- OUTSIDE RECORDS SUMMARY | 2025-03-12 14:30 | XMS_ITS | Clinical Summary ---
Author Organization [facility] Address [address] [place] [address] Care Team Providers Care [employer] Software Developer Name Role Phone Mike Mckenzie MD Primary Care Provider [phone] Allergies Active Allergy Reactions Criticality Noted Date [...] Encounters Date Type Department Care Team Description 02/03/2025 Telephone [facility] Care Management [address] [place] [address] Shasha Guaman, sugar refinery supervisor (Swing bed referral to [facility] from [facility]/) from Last 3 Months Social History Tobacco Use Types Packs/Day Years Used Date Smoking Tobacco: Every Day Cigarettes Smokeless Tobacco: Never Tobacco Cessation:Ready to Q uit: Not Asked; Counseling Given: Not Answered Alcohol Use Standard Drinks/Week Comments Never 0 (1 standard drink = 0.6 oz pur e alcohol) Sex and Gender Information Value Date Recorded Sex Assigned at Male 11/10/2024 8:59 AM CDT Legal Sex Male 8:40 PM CDT Gender Identity Not on file Sexual Orientation Not on file Last Filed Vital Signs Vital Sign Reading Time Taken Comments Blood Pressure 133/76 04/07/2024 2:32 PM CDT Pulse 75 04/07/2024 2:32 PM CDT Temperature 35.6 C (96.1 F) 04/07/2024 2:32 PM CDT Respiratory Rate 18 04/07/2024 2:32 PM CDT Oxygen Saturation 96% 04/07/2024 2:32 PM CDT Inhaled Oxygen Concentration - - Weight 80.7 kg (178 lb) 09/28/2022 2:38 PM CDT Height 167.6 cm (5' 6) 09/28/2022 2:38 PM CDT Body Mass Index 28.73 09/28/2022 2:38 PM CDT Plan of Treatment Health Maintenance Due Date Last Done Comments DTaP, Tdap and Td Vaccines ( 1 - Tdap) 02/19/1960 Zoster Vaccines (1 of 2) 1991 Annual Medicare Wellness Visit 2006 RSV Immunization or 60+ Years (1 - 1-dose 75+ series) 02/19/2016 COVID-19 Vaccine (3 - 2024-2 6 season) 2025 09/24/2020, 08/27/2020 Pneumococcal Vaccine: 50+ Years Completed 05/03/2016, 04/12/2015, 04/06/2008 Meningococcal B Vaccine Aged Out No l onger eligible based on patient's age to complete this topic Meningococcal Vaccine Aged Out No leslie delroy eligible based on patient's age to complete this topic RSV Immunizations Under 20 Months Aged Out No longer eligible b ased on patient's age to complete this topic Insurance [facility] Care Teams [employer] Software Developer Relationship Specialty Start Date End Date Mike Mckenzie MD [address] [place] [id number] PCP - General INTERNAL MEDICINE 08/11/22
== END 2025-03-12 14:23 | disposition home or self-care (01) ==
LOC: CHSCARD 14:25
PROVIDERS: PCP Internal Medicine; Visit Provider Internal Medicine Cardiovascular Disease
DX: I48.0 Paroxysmal atrial fibrillation (principal); R94.31 Abnormal electrocardiogram [ECG] [EKG]
CPT/HCPCS: 93005

== ENCOUNTER 2025-04-21 09:14 | Outpatient (CLI) | payer MEDICARE, MEDICAID, SELFPAY ==
--- NOTE | 2025-04-21 09:27 | ECHO_ITS ---
Patient Info Name: Javier Greene Age: 85 years : 1940 Gender: Male Ht: 64 in Wt: 165 lbs BSA: 1.86 m2 HR: 51 bpm BP: 125 / 61 mmHg Technical Quality: Good Exam Date: 04/21/2025 9:29 AM Patient Status: O Admit Date: 04/21/2025 Exam Type: CA echo doppler color flow Complete two-dimensional, color flow and Doppler transthoracic echocardiogram is performed. Senior Account Clerk: Milena Esparza Attending Provider: Bradley Waters DO Summary 1. Complete two-dimensional, color flow and Doppler transthoracic echocardiogram is performed. 2. Left ventricular chamber dimension is normal. 3. Left ventricular systolic function is normal, estimated at 55-60. 4. The left ventricular diastolic function is abnormal. 5. E/e' 11 is mildly elevated. 6. Left atrial chamber dimension is moderately enlarged. 7. There is moderate aortic valve sclerosis. 8. The mitral valve has a mildly calcified annulus. 9. There is mild mitral valve regurgitation. 10. There is mild to moderate tricuspid valve regurgitation. 11. Mild pulmonary hypertension, estimated pulmonary arterial systolic pressure is 41 mmHg. Left Ventricle E/e' 11 is mildly elevated. Left ventricular chamber dimension is normal. Left ventricular systolic function is normal, estimated at 55-60. The left ventricular diastolic function is abnormal. Right Ventricle Right ventricular chamber dimension is normal. Right ventricular systolic function is normal and with normal TAPSE 2.0 cm. Left Atria Left atrial chamber dimension is moderately enlarged. Right Atria Right atrial chamber dimension is normal. Aortic Valve The aortic valve is trileaflet. There is moderate aortic valve sclerosis. There is no aortic valve stenosis. There is no aortic valve regurgitation. Pulmonic Valve There is no pulmonic regurgitation. Mitral Valve The mitral valve has a mildly calcified annulus. There is no mitral valve stenosis. There is mild mitral valve regurgitation. Tricuspid Valve There is mild to moderate tricuspid valve regurgitation. Mild pulmonary hypertension, estimated pulmonary arterial systolic pressure is 41 mmHg. Pericardium/Pleural There is no pericardial effusion. Inferior Vena Cava Normal inferior vena cava with >50% collapse upon inspiration consistent with normal right atrial pressure, 5 mmHg. Aorta The aortic root size at the sinus of Valsalva is normal. Left Ventricular Outflow Tract Name Value Normal LVOT 2D LVOT Diameter 2.0 cm LVOT Doppler LVOT Peak Velocity 120 cm/s LVOT Peak Gradient 6 mmHg LVOT Mean Gradient 3 mmHg LVOT VTI 28 cm LVOT Stroke Volume 89 ml LVOT CO 4.6 l/min LVOT CI 2.5 l/min/m2 Pulmonic Valve Name Value Normal PV Doppler PV Peak Velocity 87 cm/s PV Peak Gradient 3 mmHg Mitral Valve Name Value Normal MV Diastolic Function MV E Peak Velocity 106 cm/s MV A Peak Velocity 94 cm/s MV E/A 1.1 MV Decel Time (PW) 323 ms MV Annular TDI MV E/e' (Septal) 11.9 MV E/e' (Lateral) 10.7 MV E/e' (Average) 11.3 Tricuspid Valve Name Value Normal TV Regurgitation Doppler TR Peak Velocity 302 cm/s TR Peak Gradient 34 mmHg Estimated PAP/RSVP RA Pressure 5 mmHg <=5 PA Systolic Pressure 41 mmHg <36 RV Systolic Pressure 41 mmHg <36 Aortic Valve Name Value Normal AV Doppler AV Peak Velocity 181 cm/s AV Peak Gradient 13 mmHg AV Area (Cont Eq Michael) 2.1 cm2 AV DI (Michael) 0.66 AV Regurgitation 2D LVOT Area 3.2 cm2 Ventricles Name Value Normal LV Dimensions 2D/MM IVS Diastolic Thickness (2D) 0.8 cm 0.6-1.0 LVID Diastole (2D) 4.6 cm 4.2-5.8 LVIW Diastolic Thickness (2D) 0.7 cm 0.6-1.0 LVID Systole (2D) 3.4 cm 2.5-4.0 LVOT Diameter 2.0 cm LV Mass (2D Cubed) 115.16 g 88.00-224.00 LV Mass Index (2D Cubed) 62 g/m2 49-115 Relative Wall Thickness (2D) 0.31 <=0.42 LV Fractional Shortening/Ejection Fraction 2D/MM LV Fractional Shortening (2D) 28 % 25-43 LV EF (2D Teichholz) 54 % LV Diastolic Volume (4C MOD) 124 ml LV EF (4C MOD) 63 % LV Diastolic Volume (2C MOD) 139 ml LV EF (2C MOD) 70 % LV Diastolic Volume (BP MOD) 132 ml 62-150 LV Diastolic Volume Index (BP MOD) 71 ml/m2 34-74 LV Systolic Volume (BP MOD) 45 ml 21-61 LV Systolic Volume Index (BP MOD) 24 ml/m2 11-31 LV EF (BP MOD) 66 % 52-72 LV Diastolic Length (4C) 8.0 cm LV Systolic Length (4C) 7.0 cm LV Stroke Volume (4C MOD) 78 ml Atria Name Value Normal LA Dimensions LA Volume (4C A-L) 63 ml LA Volume (BP A-L) 62 ml RA Dimensions RA Systolic Major [place] Length (4C) 5.0 cm 2.1-2.7 RA Area (4C) 16.7 cm2 <=18.0 Report Signatures
== END 2025-04-21 09:15 | disposition home or self-care (01) ==
PROVIDERS: PCP Internal Medicine; Visit Provider Internal Medicine Cardiovascular Disease
DX: I50.30 Unspecified diastolic (congestive) heart failure (principal); I35.8 Other nonrheumatic aortic valve disorders; I08.1 Rheumatic disorders of both mitral and tricuspid valves; I27.20 Pulmonary hypertension, unspecified
CPT/HCPCS: 93306

== ENCOUNTER 2025-06-08 14:12 | Outpatient (CLI) | payer MEDICARE, SELFPAY ==
--- NOTE | ~2025-06-08 | CT_ITS ---
CT HEAD NON-CONTRAST Clinical History: HEAD INJURY Comparison: 03/18/24 Technique: Unenhanced axial images skull base to vertex Coronal, sagittal reformats CT images acquired with automatic exposure control for dose reduction DLP: 605 mGy-cm Findings: Age-related atrophy. Chronic white matter microvascular ischemic changes. Small focal encephalomalacia right occipital lobe. Sulci, ventricles: Unremarkable. No intracerebral hemorrhage. No evidence acute territorial infarct. No mass effect, midline shift. Bony calvarium intact. Visualized paranasal sinuses: Clear. Mastoid air cells: Clear. IMPRESSION: 1. No acute intracranial findings. Reviewed, dictated and finalized at location R. DATION LEADER
[2025-06-08 14:36] LABS: Hematocrit 39.7 % (37.0-46.0); Hemoglobin 11.8 g/dL (12.4-15.3); Mean Corpuscular HGB Conc 29.7 g/dL (32-36); Mean Corpuscular Hemoglobin 25.4 pg (27.0-31.0); Mean Corpuscular Volume 85.6 fL (78.0-102.0); Platelet Count Result 438 K/mm3 (150-420); Red Blood Count 4.64 M/mm3 (4.70-6.10); White Blood Count 9.2 K/mm3 (4.8-10.8)
[2025-06-08 14:44] LABS: Add Urine Microscopic? YES; Appearance Urine Clear (Clear); Glucose Urine UA 1+ (Negative); Leukocyte Esterase Ur Trace LEU/UL (Negative); Nitrate Urine Negative (Negative); Specific Grav Ur 1.010 (1.010-1.020)
[2025-06-08 14:48] LABS: Alanine Aminotransferase 33 U/L (6-50); Albumin Level 4.6 g/dL (3.5-5.1); Alkaline Phosphatase 101 U/L (38-126); Anion Gap 13 mmol/L (4-12); Aspartate Amino Transferase 34 U/L (17-59); Bilirubin,Total 0.4 mg/dL (0.2-1.3); Blood Urea Nitrogen 23 mg/dL (9-20); Calcium 9.3 mg/dL (8.4-10.2); Carbon Dioxide 23 mmol/L (22-30); Chloride 106 mmol/L (98-107); Estimated Glomerular Filt Rate 47; Glucose 108 mg/dL (65-110); Osmolality Calculated 298 mOsm/kg (285-295); Potassium 4.4 mmol/L (3.4-5.0); Sodium 142 mmol/L (137-145); Total Protein 7.9 g/dL (6.3-8.2)
[2025-06-08 14:59] LABS: NT Pro B Type Natriuretic Pept 1470 pg/mL (19.9-100)
[2025-06-08 15:24] LABS: Ferritin 13.90 ng/mL (11.1-264)
== END 2025-06-08 14:13 | disposition home or self-care (01) ==
LOC: CHSLAB 14:14
PROVIDERS: PCP Internal Medicine; Visit Provider Internal Medicine
DX: D64.9 Anemia, unspecified (principal); I50.9 Heart failure, unspecified; E87.5 Hyperkalemia; S09.90XA Unspecified injury of head, initial encounter
CPT/HCPCS: 36415; 70450; 80053; 81001; 82728; 83880; 85027; 87086